=== PATIENT | female | born 1970 | race Caucasian/White ===

== ENCOUNTER 2021-04-12 14:39 | Outpatient (REF) | payer MEDICAID, SELFPAY ==
--- NOTE | ~2021-04-12 | MM_ITS ---
EXAMINATION: MM DIAGNOSTIC DIGITAL BREAST TOMOSYNTHESIS, BILATERAL US DIAGNOSTIC ULTRASOUND BREAST, RIGHT CLINICAL INFORMATION: Due for yearly exam. Follow-up probable bilateral benign punctate calcifications. Also recurrent superficial nodule/abscess right axilla noted at clinical exam, previous outside aspiration. No known family history breast cancer. The lifetime risk of breast cancer based on the Tyrer-Cuzick Model is 7%. COMPARISON: Mammography: 03/16/2020, 09/13/2019, 03/16/2019, 03/11/2019 (BI-RADS 0), 02/18/2018 (new baseline). TECHNIQUE: Digital breast tomosynthesis is performed in both the craniocaudal and mediolateral oblique views along with computer-aided detection (CAD). Synthesized 2D images are generated from the tomosynthesis. Additional bilateral magnification CC and bilateral magnification ML views are obtained. Ultrasound right breast is targeted to the area of palpable concern right axilla. Patient is able to point to area of concern at time of imaging. Grayscale imaging and color Doppler are performed without and with harmonics. FINDINGS: There are scattered areas of fibroglandular density (ACR BI-RADS breast composition Category b). Breast parenchymal pattern is similar to prior studies. There is no developing density or significant mass or architectural abnormality. No skin thickening or coarsening of the Damian's ligaments. The axilla are unremarkable. No lymphadenopathy. The calcifications for follow-up regional central and upper outer right breast and regional central left breast are stable from prior diagnostic studies. There are no increasing calcifications or interval pleomorphic types or ductal distribution. There are now considered to be benign. Ultrasound right breast targeted to the superficial palpable nodularity at axilla demonstrates a small hypoechoic intradermal lesion with irregular margins approximately 20 cm from nipple and measuring just under 4 mm. There is no subdermal extension and no associated internal or peripheral color flow. No edema tracking in soft tissue planes. No lymphadenopathy. Results are discussed with the patient at time of visit. The bilateral breast calcifications are now considered to be benign. The intradermal lesion right axilla shows no hyperemia. It is likely a sebaceous cyst. If persistent and/or increasing, it would be amenable to simple excision by surgeon. MM/MM tomosynthesis diagnostic BI IMPRESSION: 1. No mammographic evidence of malignancy. 2. Bilateral breast calcifications stable and now considered to be benign. 3. Palpable nodule right axilla corresponds to an intradermal lesion under 4 mm, likely sebaceous cyst. No hyperemia. ASSESSMENT: BI-RADS 2: Benign RECOMMENDATION: 1. The intradermal lesion right axilla may be managed based on the clinical impression. Consider surgical consult for simple excision if persistent or increasing. 2. Otherwise, routine annual screening mammography. This patient's information was entered into a reminder system with a target due date for their next mammogram.
== END 2021-04-12 14:40 | disposition home or self-care (01) ==
LOC: HO.MAMMO 14:39
PROVIDERS: Visit Provider Family Medicine
DX: R22.9 Localized swelling, mass and lump, unspecified (principal)
CPT/HCPCS: 76642; 77062; 77066

== ENCOUNTER → 2021-07-04 11:43 | Outpatient (BNVA) | payer MEDICAID, SELFPAY | PROVIDERS: PCP Family Medicine; Referring Provider Family Medicine; Visit Provider Surgery | DX: L72.0 Epidermal cyst (principal) | CPT/HCPCS: 99202 ==

== ENCOUNTER 2022-07-01 12:27 | Outpatient (REF) | payer MEDICAID, SELFPAY ==
--- NOTE | ~2022-07-01 | XR_ITS ---
EXAMINATION: BILATERAL KNEE SERIES CLINICAL INFORMATION: Pain COMPARISON: None TECHNIQUE: 3 views of each knee FINDINGS: Right knee: Bones joints and soft tissues are normal without effusion. Left knee: The bones joints and soft tissues are normal without effusion XR/XR knee RT 3V IMPRESSION: Normal x-ray series of the right knee and left knee
--- NOTE | ~2022-07-01 | XR_ITS ---
EXAMINATION: BILATERAL KNEE SERIES CLINICAL INFORMATION: Pain COMPARISON: None TECHNIQUE: 3 views of each knee FINDINGS: Right knee: Bones joints and soft tissues are normal without effusion. Left knee: The bones joints and soft tissues are normal without effusion XR/XR knee LT 3V IMPRESSION: Normal x-ray series of the right knee and left knee
== END 2022-07-01 12:28 | disposition home or self-care (01) ==
LOC: HO.XRAY 12:27
PROVIDERS: PCP Family Medicine; Visit Provider Family Medicine
DX: M25.561 Pain in right knee (principal); M25.562 Pain in left knee
CPT/HCPCS: 73562

== ENCOUNTER 2022-07-08 12:25 | Outpatient (REF) | payer MEDICAID, SELFPAY ==
--- NOTE | ~2022-07-08 | MM_ITS ---
EXAMINATION: MM SCREENING DIGITAL BREAST TOMOSYNTHESIS, BILATERAL CLINICAL INFORMATION: Screening. Asymptomatic. The lifetime risk of breast cancer based on the Tyrer-Cuzick Model is 8%. COMPARISON: Mammography: 04/12/2021, 03/16/2020, 09/13/2019 TECHNIQUE: Digital breast tomosynthesis is performed in both the craniocaudal and mediolateral oblique views along with computer-aided detection (CAD). Synthesized 2D images are generated from the tomosynthesis. FINDINGS: There are scattered areas of fibroglandular density (ACR BI-RADS breast composition Category b). Parenchymal pattern is similar to prior exams. There is no developing density or interval mass or architectural abnormality. There is a dermal lesion again seen overlying the mid medial right breast. Numerous punctate round calcifications are again present, greater in number on right, similar to prior diagnostic exam. The axilla are unremarkable. No significant changes. MM/MM tomosynthesis screening BI IMPRESSION: No mammographic evidence of malignancy. ASSESSMENT: BI-RADS 2: Benign RECOMMENDATION: Routine annual mammography screening. This patient's information was entered into a reminder system with a target due date for their next mammogram.
== END 2022-07-08 12:26 | disposition home or self-care (01) ==
LOC: HO.MAMMO 12:25
PROVIDERS: PCP Family Medicine; Visit Provider Family Medicine
DX: Z12.31 Encounter for screening mammogram for malignant neoplasm of breast (principal)
CPT/HCPCS: 77063; 77067

== ENCOUNTER 2022-08-19 11:32 | Outpatient (REF) | payer MEDICAID, SELFPAY ==
--- NOTE | ~2022-08-19 | US_ITS ---
EXAMINATION: US ABDOMEN COMPLETE CLINICAL INFORMATION: Fatty liver. COMPARISON: Ultrasound abdomen complete dated 03/30/2020 and 08/05/2018. TECHNIQUE: Real-time imaging of the abdominal viscera. FINDINGS: PANCREAS: Tail is obscured by the rest of the pancreas is normal. ABDOMINAL AORTA: The proximal, mid, and distal segments are normal in caliber. INFERIOR VENA CAVA: Partially visualized, and is unremarkable LIVER: The liver is normal in size. The liver contour is normal. Parenchymal echogenicity is normal. No focal hepatic lesion. There is no intrahepatic biliary duct dilatation seen. GALLBLADDER: Normal. The gallbladder is physiologically distended without evidence of stones, sludge, polyps, wall thickening or pericholecystic fluid. COMMON BILE DUCT: Normal in caliber measuring 0.2 cm in diameter. RIGHT KIDNEY: Normal. No hydronephrosis. No renal calculi or focal parenchymal lesions. The kidney measures 12.3 cm in maximum dimension. LEFT KIDNEY: Normal. No hydronephrosis. No renal calculi or focal parenchymal lesions. The kidney measures 12.3 cm in maximum dimension. SPLEEN: Normal. The spleen measures 11.5 cm in maximum dimension. FREE FLUID: None. US/US abdomen complete IMPRESSION: Normal study.
== END 2022-08-19 11:33 | disposition home or self-care (01) ==
LOC: HO.US 11:32
PROVIDERS: PCP Family Medicine; Visit Provider Family Medicine
DX: K76.0 Fatty (change of) liver, not elsewhere classified (principal)
CPT/HCPCS: 76700

== ENCOUNTER → 2022-08-22 14:47 | Outpatient (BNVA) | payer MEDICAID, SELFPAY | PROVIDERS: PCP Family Medicine; Visit Provider Nurse Practitioner | DX: Z01.818 Encounter for other preprocedural examination (principal); K21.9 Gastro-esophageal reflux disease without esophagitis; E66.09 Other obesity due to excess calories; Z68.35 Body mass index [BMI] 35.0-35.9, adult; Z83.71 Family history of colonic polyps | CPT/HCPCS: 99202 ==

== ENCOUNTER 2022-09-04 07:51 | Outpatient (REF) | payer MEDICAID, SELFPAY ==
--- NOTE | ~2022-09-04 | XR_ITS ---
EXAMINATION: XR KNEE AP STANDING CLINICAL INFORMATION: Pain COMPARISON: Bilateral knee x-rays 07/01/2022 TECHNIQUE: AP bilateral standing view of the knees was obtained. FINDINGS: There is mild narrowing of both the left and right medial joint space heights. Lateral joint spaces appear well-maintained. No prominent osteophytes. No gross radiopaque foreign body. XR/XR knee standing BI IMPRESSION: Minimal degenerative changes of the medial compartments of both knees.
== END 2022-09-04 07:52 | disposition home or self-care (01) ==
LOC: HO.HOSX 07:51
PROVIDERS: Visit Provider Physician Assistant
DX: M17.11 Unilateral primary osteoarthritis, right knee (principal)
CPT/HCPCS: 20610; 73565; 99202; 99212; J1040

== ENCOUNTER 2022-09-04 10:32 | Outpatient (REF) | payer MEDICAID, SELFPAY ==
[2022-09-04 10:57] LABS: MANUAL DIFF FLAG NO
[2022-09-04 11:15] LABS: Basophils Percent Auto 0.4 % (0-2); Eosinophils Absolute Auto 0.1 X10*3/uL (0.0-0.4); Hematocrit 38.5 % (37.0-47.0); Hemoglobin 12.8 g/dl (12.0-16.0); Imm Gran Abs Auto 0.02 X10*3/uL (0.00-0.03); Imm Gran Pct Auto 0.4 % (0.0-0.4); Lymphocytes Absolute Auto 1.9 X10*3/uL (1.2-4.9); Lymphocytes Percent Auto 34.6 % (20-40); Mean Corpuscular HGB Conc 33.2 g/dl (31.0-35.0); Mean Corpuscular Hemoglobin 30.8 pg (27.0-33.0); Mean Corpuscular Volume 92.8 fL (80.0-98.0); Mean Platelet Volume 10.1 fL (9.4-12.3); Monocytes Absolute Auto 0.4 X10*3/uL (0.1-1.2); Monocytes Percent Auto 7.5 % (2-11); Neutrophils Percent Auto 55.1 % (45-73); Platelet Count 259 X10*3/uL (160-400); Red Blood Count 4.15 X10*6/uL (4.20-5.50); Red Cell Distribution Width 13.1 % (11.0-16.0); White Blood Count 5.5 X10*3/uL (4.8-10.8)
[2022-09-04 12:03] LABS: Alanine Aminotransferase 49 U/L (0-31); Albumin Level 4.1 g/dL (3.5-5.0); Alkaline Phosphatase 91 U/L (39-117); Anion Gap 13 (12-20); Aspartate Amino Transferase 30 U/L (5-31); Bilirubin Total 0.4 mg/dL (0.0-1.0); Blood Urea Nitrogen 10 mg/dL (9-16); Calcium 9.1 mg/dL (8.4-10.2); Carbon Dioxide 23 mmol/L (22-29); Chloride 109 mmol/L (96-108); Estimated Glomerular Filt Rate > 60; Glucose Random 89 mg/dL (60-115); Potassium 4.5 mmol/L (3.3-5.1); Sodium 140 mmol/L (135-145); Total Protein 7.7 g/dL (6.5-8.0)
== END 2022-09-04 10:33 | disposition home or self-care (01) ==
LOC: HO.LAB 10:32
PROVIDERS: PCP Family Medicine; Visit Provider Nurse Practitioner
DX: Z01.818 Encounter for other preprocedural examination (principal)
CPT/HCPCS: 36415; 80053; 85025

== ENCOUNTER 2022-10-29 14:19 | Outpatient (REF) | payer MEDICAID, SELFPAY ==
--- NOTE | ~2022-10-29 | US_ITS ---
EXAMINATION: US PELVIS CLINICAL INFORMATION: Abnormal uterine and vaginal bleeding. LMP unknown. History of tubal ligation. COMPARISON: Pelvic ultrasound 03/27/2020. TECHNIQUE: Ultrasound of the pelvis is performed using both transabdominal and transvaginal transducers along with Doppler. Transvaginal imaging is performed due to inadequate visualization transabdominally. FINDINGS: The uterus is anteverted and anteflexed measuring 10 x 5.6 x 6 cm. There are multiple uterine lesions, described in detail below: 1. A 1.7 x 2.1 x 1.9 cm anterior upper myometrial lesion, previously 1.6 x 1.5 x 1.6 cm. 2. A 1.1 x 1.4 x 1.2 cm slightly more superior anterior upper myometrial lesion, previously 1.7 x 1.5 x 1.6 cm. 3. A 1.6 x 1.5 x 1.6 cm left mid myometrial lesion, previously 2.2 x 1.4 x 1.5 cm 4. A 1.1 x 1.1 x 1.1 cm left upper uterine myometrial lesion, new. The endometrium measures 1.3 cm without discrete focal abnormality. Nabothian cysts overlie the cervix. The right ovary measures 3.4 x 2.3 x 2.9 cm (12 mL) and the left ovary measures 3.9 x 1.8 x 1.9 cm (7 mL). There is preserved flow to both ovaries at the moment of this examination on color Doppler There are tubular like structures surrounding the ovaries in both adnexal areas, larger on the right side with some internal echogenic content. No significant amount of free fluid. US/US pelvic and transvaginal IMPRESSION: 1. Tubular-shaped structures surrounding the ovaries in both adnexa, larger on the right side where there are internal echogenic contents. These could represent dilatation of the fallopian tubes with purulent/hemorrhagic debris, however another type of adnexal or ovarian abnormalities cannot be entirely excluded, recommend clinical correlation and further correlation with an MR of the pelvis with and without IV contrast. 2. Multiple uterine lesions favored to represent fibroids.
== END 2022-10-29 14:20 | disposition home or self-care (01) ==
LOC: HO.US 14:19
PROVIDERS: PCP Family Medicine; Visit Provider Family Medicine
DX: N93.9 Abnormal uterine and vaginal bleeding, unspecified (principal)
CPT/HCPCS: 76830; 76856

== ENCOUNTER 2022-11-05 15:40 | Outpatient (REF) | payer MEDICAID, SELFPAY ==
--- NOTE | ~2022-11-05 | CT_ITS ---
EXAMINATION: CT ANGIOGRAM OF THE CHEST WITH AND WITHOUT CONTRAST (CT PULMONARY ANGIOGRAM FOR PE) CLINICAL INFORMATION: Reason for Exam SOB, r/o PE COMPARISON: None TECHNIQUE: Prior to contrast administration, noncontrast localization images were obtained. Subsequently, multidetector volumetric imaging was performed from the thoracic inlet to below the diaphragms following the administration of 65 mL Omnipaque 350 intravenous contrast. No contrast reaction reported Sagittal, coronal, and MIP oblique sagittal reformatted images were obtained on the CT workstation, uploaded to PACS, and reviewed. This CT examination was performed using dose optimization techniques as appropriate, variously including the following: *Automated exposure control *Adjustment of mA and/or kV according to patient size (this includes techniques or standardized protocols for targeted exams where dose is matched to indication/reason for exam; i.e. extremities or head) *Use of iterative reconstruction technique Total exam dose-length product 248 mGy-cm FINDINGS: QUALITY OF STUDY/CONTRAST BOLUS: Satisfactory. PULMONARY ARTERIES: No central or segmental pulmonary emboli. THORACIC AORTA: No aneurysm or dissection. LUNG: No focal consolidation, nodules or masses. PLEURA: No pleural effusion or pneumothorax. MEDIASTINUM: Normal heart size. No pericardial effusion. No hilar or mediastinal lymphadenopathy. No evidence of septal bowing or right heart strain. CORONARY ARTERY CALCIFICATION: None visualized on this study. CHEST WALL/AXILLA: No axillary or internal mammary lymphadenopathy. OSSEOUS STRUCTURES: No acute or suspicious osseous abnormality. UPPER ABDOMEN: Unremarkable. No reflux of contrast into the hepatic veins to suggest elevated right heart pressures. CT/CT angio chest PE protocol IMPRESSION: No pulmonary embolism VTE: negative
[2022-11-05] MEDS: iohexoL 350 MG/ML 100 ML INFUS..BTL IV (17:17)
== END 2022-11-05 15:41 | disposition home or self-care (01) ==
LOC: HO.CT 15:40
PROVIDERS: PCP Family Medicine; Visit Provider Family Medicine
DX: R06.02 Shortness of breath (principal)
CPT/HCPCS: 71275; Q9967

== ENCOUNTER 2022-11-12 11:05 | Outpatient (RCR) | payer MEDICAID, SELFPAY ==
[2022-11-12 11:15] VITALS: BP 119/55; PULSE 80
--- NOTE | 2022-11-12 15:12 | MHC.PT.EP ---
[facility] [place] Office [place] Office [place] Office [address] [phone] F: [phone] F: [phone] F: [phone] F: [phone] Physical Therapy Plan of Care Date of Evaluation: Date of Surgery: Diagnosis: R knee pain, osteoarthritis knee, patellofemoral osteoarthritis Assessment: Patient is a 52 y.o. macedonian speaking female who is referred to PT by Flor PARIKH with Dx of R knee osteoarthritis and patellofemoral arthritis. Patient impairments include pain, weakness, limited ROM. Patient current functional limitations are prolonged standing, prolonged walking, bend/squat, ascend/descend stairs one at a time with railings. Patient will benefit from skilled PT to address aforementioned impairments and functional limitations to meet established goals. Frequency and Duration: The patient will be seen 1-2x/week for 4 weeks Short Term Goals: 2 weeks Patient demonstrates consistency and independence with HEP to self manage symptoms. Residential Goals: 4 weeks Patient presents with increased R knee flexion 115 degrees to be able to squat to low surfaces. Patient presents with incraesed R knee flexion 5/5 to be able to ascend/descend 1 flight of stair reciprocally. Treatment Plan: Modalities to reduce pain, spasms and effusion. Manual therapy to restore motion and function. Therapeutic exercise to improve strength and flexibility. Neuromuscular re-education for posture and balance. Therapeutic activities to return to functional activities of daily living. Electronically signed by: J Luis Fuentes, PT, DPT Please sign and return to therapist. Thank you for your referral.
--- NOTE | 2022-12-16 16:26 | MHC.PT.DC ---
[facility] [place] Office [place] Office [place] Office [address] [facility] [phone] F: [phone] F: [phone] F: [phone] F: [phone] Physical Therapy Discharge Report Diagnosis: R knee pain, osteoarthritis knee, patellofemoral osteoarthritis Date of Surgery: Date of Evaluation: 11/12/22 Date of Discharge: 12/16/22 Treatments to Date: 1 Cancellations to Date: 0 No Shows to Date: 3 Discharge Status: Visit Non-compliance Discharge Summary: Patient did not show to her scheduled visits after the initial evaluation. Therefore she is discharged from PT at this time. Unable to determine effectiveness of PT on patient condition due to visit non-compliance. Electronically signed by: J Luis Fuentes, PT, DPT Please sign and return to therapist. Thank you for your referral.
== END 2022-12-16 16:27 | disposition home or self-care (01) ==
LOC: HO.PT 11:05
PROVIDERS: PCP Family Medicine; Visit Provider Physician Assistant
DX: M17.11 Unilateral primary osteoarthritis, right knee (principal)
CPT/HCPCS: 97110; 97161

== ENCOUNTER → 2022-12-06 14:04 | Outpatient (BNV) | payer MEDICAID, SELFPAY | PROVIDERS: PCP Family Medicine; Visit Provider Internal Medicine Medical Oncology | DX: N28.0 Ischemia and infarction of kidney (principal) | CPT/HCPCS: 99204; 99213 ==

== ENCOUNTER 2022-12-16 08:08 | Outpatient (REF) | payer MEDICAID, SELFPAY ==
--- NOTE | ~2022-12-16 | FL_ITS ---
PROCEDURE: FL BARIUM SWALLOW CLINICAL INFORMATION: Globus sensation. COMPARISON: None available. TECHNIQUE: Barium swallow examination is performed using fluoroscopic evaluation in addition to multiple fluoroscopic spot views. The patient is imaged both upright and prone and using both thick and thin sulfate along with effervescent granules. Fluoroscopy time: 1.1 minutes DAP: 17.391 Gy-cm2 Images: 53 FINDINGS: Following oral administration of thick barium and and barium-coated solid food there is normal propagation of bolus from the oral cavity through the pharynx into esophagus and stomach without any obstruction or narrowing. No constriction or extrinsic compression seen. There is reducible small hiatal hernia but no reflux seen. FL/FL barium swallow IMPRESSION: Reducible small hiatal hernia without any reflux. Rest of the barium swallow exam is unremarkable.
== END 2022-12-16 08:09 | disposition home or self-care (01) ==
LOC: HO.XRAY 08:08
PROVIDERS: PCP Family Medicine; Visit Provider Family Medicine
DX: R09.89 Other specified symptoms and signs involving the circulatory and respiratory systems (principal)
CPT/HCPCS: 74220

== ENCOUNTER 2023-03-03 13:00 | Emergency (ER) | payer MEDICAID, SELFPAY ==
--- NOTE | ~2023-03-03 | XR_ITS ---
EXAMINATION: XR KNEE, LEFT CLINICAL INFORMATION: Left knee pain after jumping COMPARISON: Left knee x-ray on 09/04/2022 TECHNIQUE: Four views of the left knee. FINDINGS: Bones and soft tissues are normal. Small joint effusion. Alignment is anatomic. Mild medial compartment joint space narrowing. No abnormal soft tissue calcification. XR/XR knee LT 4V IMPRESSION: Mild degenerative disease of the left knee.
[2023-03-03 13:11] VITALS: BP 104/48; PULSE 72; RESP 20; TEMP 36.7; O2SAT 98; BMI 34.3
--- NOTE | 2023-03-03 13:12 | ED.GENADULT ---
HPI - General Adult General Chief complaint: Extremity Injury, Lower Stated complaint: L knee inj Time Seen by Provider: 03/03/23 13:25 Source: patient Mode of arrival: ambulatory Limitations: no limitations History of Present Illness HPI narrative: Patient is a 52 year old assigned female at with a history of GERD presenting to the emergency department today with left knee pain. Patient states that she was jumping on a trampoline when she heard a loud pop of her left knee and now continues to have pain. Patient denies any head strike or loss of consciousness. Patient denies any dizziness, lightheadedness, abdominal pain, nausea, vomiting, fever, chills, blurry vision, double vision, loss of vision, chest pain, difficulty breathing, shortness of breath, back pain, night sweats, pain with urination, increased urinary frequency, increased urinary urgency, blood in her urine or stool, syncope or a near syncopal episode, bowel incontinence, bladder incontinence, bowel retention, bladder retention, or any other complaints at this time. Location: left and lower extremity Severity: mild Relieving factors: none Exacerbating factors: none Associated symptoms: denies other symptoms Treatments prior to arrival: none Related Data Home Medications Medication Instructions Recorded Confirmed omeprazole 20 mg capsule,delayed 20 mg PO DAILY 07/04/21 12/06/22 release acetaminophen 650 mg 650 mg PO Q8H PRN Pain 08/22/22 12/06/22 tablet,extended release albuterol sulfate 90 mcg/actuation 2 puff inhalation Q4H PRN 08/22/22 12/06/22 aerosol inhaler (ProAir HFA) Shortness Of Breath Or Wheezing baclofen 10 mg tablet 10 mg PO TID PRN muscle spasm 08/22/22 12/06/22 cetirizine 10 mg tablet 10 mg PO DAILY 08/22/22 12/06/22 cholecalciferol (vitamin D3) 50 50 mcg PO DAILY 08/22/22 12/06/22 mcg (2,000 unit) capsule (D3-2000) diclofenac sodium 1 % topical gel 2 g topical BID pain 08/22/22 12/06/22 fluticasone propionate 50 2 spray intranasal DAILY 08/22/22 12/06/22 mcg/actuation nasal spray,suspension ibuprofen 600 mg tablet 600 mg PO Q6H PRN fever 08/22/22 12/06/22 loratadine 10 mg tablet 10 mg PO DAILY 08/22/22 12/06/22 apixaban 5 mg tablet 5 mg PO BID 12/06/22 12/06/22 Previous Rx's Medication Instructions Recorded apixaban 5 mg tablet (Eliquis) 5 mg PO BID #180 tabs 12/06/22 Allergies Allergy/AdvReac Type Severity Reaction Status Date / Time No Known Allergies Allergy Verified 08/22/22 15:01 Review of Systems Constitutional: Constitutional: Reports no additional constitutional complaints, Denies chills, Denies fever(s) and Denies night sweats Eyes: Eyes: Reports no additional eye complaints, Denies blurry vision, Denies change in vision, Denies diplopia, Denies eye discharge, Denies loss of vision and Denies eye pain ENT: Denies dizziness Cardiovascular: Cardiovascular: Reports no additional cardiovascular complaints, Denies chest pain, Denies lightheadedness, Denies Loss of Consciousness and Denies dyspnea Respiratory: Respiratory: Reports no additional respiratory complaints and Denies dyspnea Gastrointestinal: Gastrointestinal: Reports no additional gastrointestinal complaints, Denies abdominal pain, Denies melena, Denies hematochezia, Denies change in bowel habits and Denies change in stool character Genitourinary: Genitourinary: Denies hematuria, Denies urinary frequency, Denies dysuria, Denies urinary incontinence, Denies urinary hesitancy and Denies urinary urgency Musculoskeletal: Musculoskeletal: Reports no additional musculoskeletal complaints, Denies numbness and Denies tingling Comments: left knee pain Neurologic: Denies dizziness, Denies loss of vision, Denies numbness and Denies tingling Psychiatric: Psychiatric: Reports no additional psychiatric complaints Endocrine: Endocrine: Reports no additional endocrine complaints Hematologic/Lymphatic: Hematologic/Lymphatic: Reports no additional hematologic/lymphatic complaints Allergic/Immunologic: Allergic/Immunologic: Reports no additional allergic/immunologic complaints PMFSH Past Medical History Attestation statement: The following information was validated with the patient. 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 Physical Exam ED Vital Signs: Vital Signs - 24 hr 03/03/23 13:11 Temperature 98.1 F Pulse Rate 72 Respiratory Rate 20 Blood Pressure 104/48 L Pulse Oximetry 98 Oxygen Delivery Method Room Air BMI result Body Mass Index 34.3 Const General: cooperative, no acute distress, alert and awake Nutritional Appearance: well nourished Orientation/consciousness: patient oriented x3 Limitations: no limitations HENMT Head: Yes normal to inspection and Yes atraumatic Ears: hearing grossly normal bilaterally and external ears normal General nose exam: Normal external nose present, no nasal discharge noted and no epistaxis Face and sinus: Yes normal facial exam, No abrasion and No laceration Mouth: Normal oral and palatal mucosa present, no drooling and no muffled voice Eyes General: appearance normal, both eyes and all related structures Periorbital: periorbital findings normal Eyelids: Yes eyelids normal Conjunctivae: conjunctivae normal Pupils: Equal, round and reactive pupils present EOM: EOMs intact bilaterally Neck Neck: Yes normal visual inspection, Yes full ROM and Yes no lymphadenopathy Chest Chest palpation & inspection: normal inspection of the chest Resp Effort & Inspection: normal respiratory effort and able to speak in complete sentences GI Inspection: Yes normal to inspection Neuro General: patient oriented x3 and moves all extremities Cranial nerves: Yes Equal, round and reactive pupils present Cognition (Neuro): normal cognition Motor exam (neuro): 5/5 motor strength present throughout Sensory Exam: Normal double simultaneous stimulation for sensation Coordination: [id number] test normal Extrem General: Yes normal to inspection, Yes full ROM and Yes capillary refill normal Psych Appearance: grossly normal Mental Status: mental status grossly normal Affect: normal affect Attitude: cooperative Thought process: Normal thought process present Thought content: Normal thought content present Insight: Good insight present (Psych) Course Course Course Narrative: RmE: 52 yold female presents to the ED for left knee pain after jumping on trampoloene. patient heard pop in left knee yesterday while jumping in tramploene. patient denies any head trauma or falling o the ground. left knee xray ordered Procedures Orthopedic Splinting/Casting Injury #1: Side: left Lower Extremity Injury Location: knee Lower Extremity Immobilizer: knee immobilizer Other Orthopedic Equipment: crutches Medical Decision Making Medical Decision Making MDM Narrative: Patient is a 52 year old assigned female at with a history of GERD presenting to the emergency department today with left knee pain. Patient's physical exam was unremarkable. Patient's left knee x-ray showed no acute process. I explained my physical exam findings as well as all test results to the patient. I answered all questions asked by the patient. Patient's left knee was placed in an immobilizer and given crutches with crutch instructions. Patient's PMS was intact prior to and after immobilizer placement. I stressed the importance of the patient taking her medication as prescribed. I stressed the importance of the patient following up with her primary care provider and an orthopedic provider. I stressed the importance of the patient returning to the emergency department immediately if her symptoms were to worsen or if she were to develop any dizziness, shortness of breath, difficulty breathing, chest pain, blurry vision, loss of vision, nausea, vomiting, abdominal pain, fever, chills, back pain, or any other complaints. Patient verbalized agreement and understanding with this treatment plan and discharge. Differential Diagnosis Differential Diagnoses: The differential diagnosis associated with the presentation includes knee sprain, knee strain Independent Interpretation I performed an independent interpretation of an: Plain X-Ray Interpretation: My interpretation is in agreement with the radiologist's impression of this imaging study. EXAMINATION: XR KNEE, LEFT CLINICAL INFORMATION: Left knee pain after jumping? COMPARISON: Left knee x-ray on 09/04/2022? TECHNIQUE: Four views of the left knee. FINDINGS: Bones and soft tissues are normal. Small joint effusion. Alignment is anatomic. Mild medial compartment joint space narrowing. No abnormal soft tissue calcification.? XR/XR knee LT 4V IMPRESSION: Mild degenerative disease of the left knee. Dictated By: Shoshana Marquis MD Signed By: Electronically signed by Shoshana Marquis MD 03/03/23 [id number] Discharge Plan Discharge Clinical Impression: Acute knee pain, Knee sprain Patient Disposition: Home, Self-Care Instructions: Crutch Instructions (ED), Knee Pain (ED) Additional Instructions: Follow up with your primary care provider and an orthopedic provider. Return to the emergency department immediately if your symptoms worsen or if you develop any dizziness, shortness of breath, difficulty breathing, chest pain, blurry vision, loss of vision, nausea, vomiting, abdominal pain, fever, chills, back pain, or any other complaints. Josefina un seguimiento con rebollar proveedor de atenci?n primaria y un proveedor ortop?dico. Regrese al departamento de emergencias de inmediato si isaura s?ntomas empeoran o si presenta mareos, falta de aire, dificultad para respirar, dolor de pecho, visi?n borrosa, p?rdida de la visi?n, n?useas, v?mitos, dolor abdominal, fiebre, escalofr?os, dolor de espalda o cualquier otras quejas. Prescriptions: No Action apixaban 5 mg Tablet 5 mg PO BID Eliquis 5 mg Tablet 5 mg PO BID Qty: 180 3RF omeprazole 20 mg capsule,delayed release(DR/EC) 20 mg PO DAILY cetirizine 10 mg tablet 10 mg PO DAILY cholecalciferol (vitamin D3) [D3-2000] 50 mcg (2,000 unit) capsule 50 mcg PO DAILY diclofenac sodium 1 % gel 2 g topical BID loratadine 10 mg tablet 10 mg PO DAILY fluticasone propionate 50 mcg/actuation spray,suspension 2 spray intranasal DAILY albuterol sulfate [ProAir HFA] 90 mcg/actuation HFA aerosol inhaler 2 puff inhalation Q4H PRN (Reason: Shortness Of Breath Or Wheezing) ibuprofen 600 mg tablet 600 mg PO Q6H PRN (Reason: fever) baclofen 10 mg tablet 10 mg PO TID PRN (Reason: muscle spasm) acetaminophen 650 mg tablet extended release 650 mg PO Q8H PRN (Reason: Pain) Referrals: [facility] [Provider Group] (Call to establish and follow up with an orthopedic provider. Llame para establecer y hacer un seguimiento con un proveedor ortop?dico.) Katlyn Garcia DO [Primary Care Provider] - Stand Alone Forms: Work/School Release Interventions: ED Discharge Assessment Last Done: 03/03/23 14:45 Discharge Date/Time: 03/03/23 14:45 Print Language: Haitian
--- NOTE | 2023-03-03 14:43 | PC.NURSE ---
immobilizer applied to left knee, education on crutches provided via spanish translator.
== END 2023-03-03 14:45 | disposition home or self-care (01) ==
PROVIDERS: Emergency Provider Emergency Medicine; PCP Family Medicine
DX: S83.92XA Sprain of unspecified site of left knee, initial encounter (principal); X58.XXXA Exposure to other specified factors, initial encounter; Y93.9 Activity, unspecified; Y92.9 Unspecified place or not applicable; Y99.9 Unspecified external cause status
CPT/HCPCS: 73564; 99283

== ENCOUNTER → 2023-03-26 09:24 | Outpatient (BNVA) | payer MEDICAID, SELFPAY | PROVIDERS: PCP Family Medicine; Referring Provider Family Medicine; Visit Provider Internal Medicine Cardiovascular Disease | DX: N28.0 Ischemia and infarction of kidney (principal) | CPT/HCPCS: 93005; 99202 ==

== ENCOUNTER → 2023-04-10 09:48 | Outpatient (REF) | payer MEDICAID, SELFPAY ==
--- NOTE | 2023-04-10 09:59 | HM_ITS ---
Cardiac event monitor Indication: Cardiac arrhythmia Technique: Patient was hooked up to cardiac event monitor on 04/12/2023 for total period of 30 days. With time was only 14.5 days with compliance rate of 52%. Findings: Baseline was normal sinus rhythm with heart rate in normal range 89% of time. No significant pauses noted. Occasional isolated PVCs noted with total burden of 1.5%. No other tachyarrhythmias were noted. Maximum heart rate 140 beats per minute in sinus tachycardia in the lowest heart rate of 73 beats per minute Patient activated the symptom button 16 times without correlating symptoms offered, correlating with sinus rhythm or sinus tachycardia. Conclusion: 1. Baseline was normal sinus rhythm with no pauses 2. Occasional isolated PVCs noted 3. Patient reported events correlated with sinus rhythm or sinus tachycardia. [facility]
== END ==
LOC: HO.CARD 09:48
PROVIDERS: Visit Provider Internal Medicine Cardiovascular Disease
DX: N28.0 Ischemia and infarction of kidney (principal); M23.92 Unspecified internal derangement of left knee
CPT/HCPCS: 36415; 80053; 83880; 84439; 84443; 85025; 93270; 99212

== ENCOUNTER → 2023-04-10 09:59 | Outpatient (BNV) | payer MEDICAID, SELFPAY | PROVIDERS: Visit Provider Internal Medicine Cardiovascular Disease | DX: I49.3 Ventricular premature depolarization (principal) | CPT/HCPCS: 93272 ==

== ENCOUNTER 2023-04-23 11:15 | Outpatient (REF) | payer MEDICAID, SELFPAY ==
[2023-04-23 11:48] LABS: MANUAL DIFF FLAG NO
[2023-04-23 12:09] LABS: Basophils Percent Auto 0.5 % (0-2); Eosinophils Absolute Auto 0.1 X10*3/uL (0.0-0.4); Eosinophils Percent Auto 2.4 % (0-4); Hematocrit 35.6 % (37.0-47.0); Hemoglobin 11.2 g/dl (12.0-16.0); Imm Gran Abs Auto 0.01 X10*3/uL (0.00-0.03); Imm Gran Pct Auto 0.2 % (0.0-0.4); Lymphocytes Absolute Auto 2.1 X10*3/uL (1.2-4.9); Lymphocytes Percent Auto 34.6 % (20-40); Mean Corpuscular HGB Conc 31.5 g/dl (31.0-35.0); Mean Corpuscular Hemoglobin 26.7 pg (27.0-33.0); Mean Platelet Volume 10.5 fL (9.4-12.3); Monocytes Absolute Auto 0.4 X10*3/uL (0.1-1.2); Monocytes Percent Auto 6.9 % (2-11); Neutrophils Absolute Auto 3.3 x10*3/uL (2.0-8.3); Neutrophils Percent Auto 55.4 % (45-73); Platelet Count 266 X10*3/uL (160-400); Red Blood Count 4.19 X10*6/uL (4.20-5.50); Red Cell Distribution Width 14.8 % (11.0-16.0)
[2023-04-23 15:33] LABS: Alanine Aminotransferase 21 U/L (0-31); Albumin Level 3.6 g/dL (3.5-5.0); Alkaline Phosphatase 73 U/L (39-117); Aspartate Amino Transferase 18 U/L (5-31); Bilirubin Total 0.4 mg/dL (0.0-1.0); Blood Urea Nitrogen 11 mg/dL (9-16); Calcium 8.9 mg/dL (8.4-10.2); Chloride 108 mmol/L (96-108); Estimated Glomerular Filt Rate > 60; Glucose Random 110 mg/dL (60-115); Potassium 3.6 mmol/L (3.3-5.1); Sodium 138 mmol/L (135-145); Total Protein 7.3 g/dL (6.5-8.0)
[2023-04-23 21:10] LABS: Carbon Dioxide 19 mmol/L (22-29)
== END 2023-04-23 11:16 | disposition home or self-care (01) ==
LOC: HO.LAB 11:15
PROVIDERS: Visit Provider Internal Medicine Medical Oncology
DX: N28.0 Ischemia and infarction of kidney (principal)
CPT/HCPCS: 36415; 80053; 85025

== ENCOUNTER 2023-06-10 10:03 | Outpatient (REF) | payer MEDICAID, SELFPAY ==
--- NOTE | ~2023-06-10 | MR_ITS ---
EXAMINATION: MR KNEE WITHOUT CONTRAST, LEFT CLINICAL INFORMATION: Left knee pain and instability. Internal derangement. COMPARISON: Left knee radiographs dated 03/03/2023. TECHNIQUE: MRI of the knee without contrast was performed using routine sequences on a high-field scanner. FINDINGS: MENISCI: Medial Meniscus: Fraying along the periphery of the posterior body and posterior horn tibial articular surface. Mild adjacent soft tissue edema posteriorly which could indicate a nondisplaced meniscocapsular injury. Lateral Meniscus: Intact LIGAMENTS: Cruciate: Increased T2 signal within the anterior cruciate ligament which could indicate early mucoid degeneration versus a grade 1 sprain. Intact posterior cruciate ligament. Collateral: Edema adjacent to the medial collateral ligament which may be related to the meniscal tear or indicate a grade 1 sprain. Intact fibular collateral ligament. EXTENSOR MECHANISM: Intact ARTICULAR CARTILAGE/BONE: Patellofemoral Compartment: Full-thickness articular cartilage fissuring at the lateral patellar facet with underlying subchondral cystic change. Tiny marginal osteophytes. Medial Compartment: Intact articular cartilage. Lateral Compartment: Intact articular cartilage. JOINT FLUID AND BURSAE: Small joint effusion and trace Santos's cyst. MR/MR knee LT wo con IMPRESSION: 1. Fraying along the periphery of the medial meniscus posterior body and posterior horn tibial articular surface. Adjacent soft tissue edema posteriorly which could indicate a nondisplaced meniscocapsular injury. 2, Increased T2 signal within the anterior cruciate ligament which could indicate early mucoid degeneration versus a grade 1 sprain. 3. Edema adjacent to the medial collateral ligament which may be related to the meniscal tear or indicate a grade 1 sprain. 4. Mild patellofemoral arthrosis. Small joint effusion and trace Santos's cyst.
== END 2023-06-10 10:04 | disposition home or self-care (01) ==
LOC: HO.MRI 10:03
PROVIDERS: PCP Family Medicine; Visit Provider Physician Assistant
DX: M23.92 Unspecified internal derangement of left knee (principal)
CPT/HCPCS: 73721

== ENCOUNTER 2023-06-12 09:49 | Outpatient (REF) | payer MEDICAID, SELFPAY | END 2023-06-12 09:50 | disposition home or self-care (01) | LOC: HO.LAB 09:49 | PROVIDERS: PCP Family Medicine; Visit Provider Internal Medicine Medical Oncology | DX: Z13.89 Encounter for screening for other disorder (principal) ==

== ENCOUNTER 2023-06-23 18:07 | Outpatient (REF) | payer MEDICAID, SELFPAY ==
[2023-06-24 09:45] LABS: CT PCR NOT DETECTED (Not Detect.); NG PCR NOT DETECTED (Not Detect.)
[2023-06-24 10:23] LABS: BV Int Neg Control Negative (Negative); BV Int Pos Control Positive (Positive)
== END 2023-06-23 18:08 | disposition home or self-care (01) ==
LOC: HO.HHCLNP 18:07
PROVIDERS: Visit Provider Family Medicine
DX: Z11.3 Encounter for screening for infections with a predominantly sexual mode of transmission (principal); N89.8 Other specified noninflammatory disorders of vagina
CPT/HCPCS: 0353U; 87480; 87510; 87660

== ENCOUNTER 2023-06-30 12:53 | Outpatient (AMB) | payer MEDICAID, SELFPAY ==
[2023-06-30 12:56] VITALS: BMI 34.3
--- NOTE | 2023-06-30 12:56 | MHC.OFFVIS ---
Intake Vital Signs 06/30/23 12:56 Height 5 ft 4 in Weight 200 lb BMI 34.3 Intake Visit Reasons: ov- MRI Knee LT review./ discuss surgery Intake Note: Jodi is a 52 year old female who presents today for an MRI review of her left knee. Allergies No Known Allergies Allergy (Verified 06/30/23 12:57) HPI ov- MRI Knee LT review./ discuss surgery HPI Details Jodi is a 52 year old woman who presents for an MRI review of her left knee pain. [place] patient. She complains of pain primarily in the posterior aspect of her knee. Her pain began after jumping on a trampoline ~4 months ago. She has pain with daily activity, worse with using stairs, and her knee occasionally gives way on her. She was fitted for a knee brace and sent for PT at her last appointment. 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 Review of Systems Const All systems reviewed & are unremarkable except as noted in HPI and below Physical Exam Vital Signs: BMI result Body Mass Index 34.3 Const General: no acute distress, alert and awake Orientation/consciousness: patient oriented x3 HEENT Head: Yes normocephalic and Yes atraumatic Eyes EOM: EOMs intact bilaterally Resp Effort & Inspection: normal respiratory effort and able to speak in complete sentences Cardio Jugular venous distension: no JVD Skin General skin exam: turgor normal Rashes: no rashes Neuro General: patient oriented x3 Extrem Other: Minimal knee pain with palpation walking comfortably Psych Appearance: grossly normal Affect: normal affect Attitude: cooperative Results Reviewed Results Reviewed: I personally reviewed relevant MR images 1. Fraying along the periphery of the medial meniscus posterior body and posterior horn tibial articular surface. Adjacent soft tissue edema posteriorly which could indicate a nondisplaced meniscocapsular injury. 2, Increased T2 signal within the anterior cruciate ligament which could indicate early mucoid degeneration versus a grade 1 sprain. 3. Edema adjacent to the medial collateral ligament which may be related to the meniscal tear or indicate a grade 1 sprain. 4. Mild patellofemoral arthrosis. Small joint effusion and trace Santos's cyst. Assessment & Plan Assessment & Plan (1) Knee effusion, right: Code(s): M25.461 - Effusion, right knee (2) Arthritis of right knee: Code(s): M17.11 - Unilateral primary osteoarthritis, right knee Plan This is a 52 year old woman with left knee bony edema and possible small meniscus tear who is improving without intervention., DOI: 03/2023. I reviewed her MRI with her and she is doing well without the need for additional intervention. If she stops improving she will contact me. Orders: Orders PT Evaluation and Treatment 06/30/23 M17.11 - Unilateral primary osteoarthritis, right knee, M25.461 - Effusion, right knee Coding Level of Care Code Est Pt Level 4 (45465) Diagnoses Knee effusion, right M25.461 Arthritis of right knee M17.11
== END 2023-06-30 13:27 | disposition home or self-care (01) ==
PROVIDERS: PCP Family Medicine; Visit Provider Orthopaedic Surgery
DX: M25.461 Effusion, right knee (principal); M17.11 Unilateral primary osteoarthritis, right knee
CPT/HCPCS: 99213

== ENCOUNTER → 2023-06-30 12:53 | Outpatient (BNVA) | payer MEDICAID, SELFPAY | PROVIDERS: PCP Family Medicine; Visit Provider Orthopaedic Surgery | DX: M25.461 Effusion, right knee (principal); M17.11 Unilateral primary osteoarthritis, right knee | CPT/HCPCS: 99212 ==

== ENCOUNTER 2023-07-08 08:40 | Outpatient (REF) | payer MEDICAID, SELFPAY ==
[2023-07-08 11:39] LABS: MANUAL DIFF FLAG NO
[2023-07-08 11:46] LABS: Basophils Percent Auto 0.5 % (0-2); Eosinophils Absolute Auto 0.1 X10*3/uL (0.0-0.4); Eosinophils Percent Auto 1.2 % (0-4); Hematocrit 35.5 % (37.0-47.0); Hemoglobin 10.7 g/dl (12.0-16.0); Imm Gran Abs Auto 0.02 X10*3/uL (0.00-0.03); Imm Gran Pct Auto 0.3 % (0.0-0.4); Lymphocytes Absolute Auto 1.7 X10*3/uL (1.2-4.9); Lymphocytes Percent Auto 26.4 % (20-40); Mean Corpuscular HGB Conc 30.1 g/dl (31.0-35.0); Mean Corpuscular Hemoglobin 25.4 pg (27.0-33.0); Mean Corpuscular Volume 84.1 fL (80.0-98.0); Mean Platelet Volume 11.2 fL (9.4-12.3); Monocytes Absolute Auto 0.4 X10*3/uL (0.1-1.2); Monocytes Percent Auto 6.7 % (2-11); Neutrophils Absolute Auto 4.2 x10*3/uL (2.0-8.3); Neutrophils Percent Auto 64.9 % (45-73); Platelet Count 253 X10*3/uL (160-400); Red Blood Count 4.22 X10*6/uL (4.20-5.50); White Blood Count 6.5 X10*3/uL (4.8-10.8)
[2023-07-08 11:51] LABS: Estimated Average Glucose 91 mg/dL; Hemoglobin A1C 69.7026 umol/L; Hemoglobin A1c % 4.8 % (<6.0)
[2023-07-08 12:38] LABS: Syphilis Screen Nonreactive (Nonreactive)
[2023-07-08 12:40] LABS: HBsAGNum1 0.33 S/CO (0.00-0.99); HIV AB/AG Nonreactive (Nonreactive); HIV Num 1 0.05 S/CO (0.00-0.99); Hepatitis B Surface Antigen Negative (Negative); ~HepC Num1 0.11 S/CO (0.00-0.79); ~Hepatitis C Antibody Nonreactive (Nonreactive)
[2023-07-08 12:41] LABS: Alanine Aminotransferase 23 U/L (0-31); Albumin Level 3.7 g/dL (3.5-5.0); Alkaline Phosphatase 71 U/L (39-117); Anion Gap 10 (12-20); Aspartate Amino Transferase 21 U/L (5-31); Bilirubin Direct 0.1 mg/dL (0.0-0.5); Bilirubin Total 0.4 mg/dL (0.0-1.0); Blood Urea Nitrogen 9 mg/dL (9-16); Calcium 8.8 mg/dL (8.4-10.2); Carbon Dioxide 24 mmol/L (22-29); Chloride 106 mmol/L (96-108); Cholesterol 185 mg/dL (<200); Estimated Glomerular Filt Rate > 60; Glucose Random 81 mg/dL (60-115); HDL Cholesterol 43 mg/dL (>40); Iron 43 mcg/dL (30-160); LDL Cholesterol Calculated 81 mg/dL (<100); Percent Iron Saturation 12 % (15-50); Sodium 136 mmol/L (135-145); Total Iron Binding Capacity 347 mcg/dL (228-428); Total Protein 7.5 g/dL (6.5-8.0); Triglycerides 307 mg/dL (<150); Unsaturated Iron Binding 304 ug/dL
[2023-07-08 12:48] LABS: Ferritin 8 ng/mL (10-250); Free T4 (Free Thyroxine) 0.86 ng/dL (0.71-1.85); Thyroid Stimulating Hormone 1.88 uIU/mL (0.32-4.0); Vitamin D 25-OH Total 39.5 ng/mL (>30)
[2023-07-08 13:17] LABS: Folate 14.5 ng/mL (> or = 4.0); Vitamin B12 370 pg/mL (200-900)
[2023-07-10 12:48] LABS: Alpha Fetoprotein 3.1 ng/mL
[2023-07-10 17:54] LABS: Hepatitis B Viral DNA Qn - cp NOT DETECTED Log IU/mL (NOT DETECTED); Hepatitis B Viral DNA Qn-IU/mL NOT DETECTED (NOT DETECTED)
== END 2023-07-08 08:41 | disposition home or self-care (01) ==
LOC: HO.HHCL 08:40
PROVIDERS: Visit Provider Family Medicine
DX: E55.9 Vitamin D deficiency, unspecified (principal); R00.2 Palpitations; K59.00 Constipation, unspecified
CPT/HCPCS: 36415; 80048; 80061; 80076; 82105; 82306; 82607; 82728; 82746; 83036; 83540; 84439; 84443; 85025; 86780; 86803; 87340; 87389; 87517

== ENCOUNTER 2023-07-10 13:48 | Outpatient (REF) | payer MEDICAID, SELFPAY ==
--- NOTE | ~2023-07-10 | US_ITS ---
EXAMINATION: US PELVIS CLINICAL INFORMATION: Abnormal uterine bleeding. LMP unknown. COMPARISON: Pelvic ultrasound 10/29/2022. TECHNIQUE: Ultrasound of the pelvis is performed using both transabdominal and transvaginal transducers along with Doppler. Transvaginal imaging is performed due to inadequate visualization transabdominally. FINDINGS: The uterus is anteverted measuring 10 x 5.6 x 6 cm. Of the previously described uterine lesions, only 2 are confidentially identified in this examination specifically a 1.6 x 1.1 x 1.6 cm anterior upper subserosal lesion (previously 1.6 x 1.5 x 1.6 cm) and a 1.1 x 1.2 x 1.3 cm left mid to inferior intramural lesion (previously 1.7 x 2.1 x 1.9 cm). Again noted abnormal endometrial thickening measuring up to 1.4 cm, previously 1.3 cm with scattered cystic observations and heterogeneous content. The right ovary measures 3.3 x 2.3 x 2.3 cm, 9 mL. The left ovary measures 5.5 x 2.9 x 4.6 m, 38 mL. Differences in size are likely explain by the presence of a 4.3 x 2.8 x 3.9 cm simple appearing cyst in the left ovary that do not demonstrate associated septation or vascular nodules. Flow is preserved to both ovaries at the moment of this examination. Redemonstration of abnormal tubular anechoic observations in the adnexal regions measuring approximately up to 7.4 cm in length on the right and 6.3 cm in length on the left, most suggestive of persistent hydrosalpinx. No significant amount of free fluid. US/US pelvic and transvaginal IMPRESSION: 1. Again noted is abnormal endometrial thickening with scattered cystic observations and heterogeneous content. Recommend correlation with direct visualization and tissue sampling. Endometrial neoplasia is not excluded. 2. Redemonstration of bilateral hydrosalpinx. 3. There is a 4.3 cm simple appearing cyst in the left ovary. The LMP and menopausal status of the patient is unknown. A follow-up pelvic ultrasound in 1 year is recommended for reevaluation. 4. Slightly decreased size of uterine lesions that are statistically in favor to represent fibroids. The report will be called to the ordering clinician by a [facility]house Assistant.
== END 2023-07-10 13:49 | disposition home or self-care (01) ==
LOC: HO.US 13:48
PROVIDERS: PCP Family Medicine; Visit Provider Family Medicine
DX: N93.9 Abnormal uterine and vaginal bleeding, unspecified (principal)
CPT/HCPCS: 76830; 76856

== ENCOUNTER 2023-07-27 14:44 | Emergency (ER) | payer MEDICAID, SELFPAY ==
--- NOTE | 2023-07-27 14:53 | ED_ITS ---
HPI - General Adult General Chief complaint: Urogenital-Female Stated complaint: Burning when urinating Time Seen by Provider: 07/27/23 16:48 Source: patient, RN notes reviewed and old records reviewed Mode of arrival: ambulatory History of Present Illness HPI narrative: 52-year-old female with a past medical history of asthma, GERD, presenting to the ED complaining of dysuria, urinary frequency/hesitancy and suprapubic abdominal pain x4 days. Denies hematuria, flank pain, nausea/vomiting, diarrhea, vaginal bleeding/discharge Onset (ago): day(s) Related Data Home Medications Medication Instructions Recorded Confirmed omeprazole 20 mg capsule,delayed 20 mg PO DAILY 07/04/21 06/12/23 release acetaminophen 650 mg 650 mg PO Q8H PRN Pain 08/22/22 06/12/23 tablet,extended release albuterol sulfate 90 mcg/actuation 2 puff inhalation Q4H PRN 08/22/22 06/12/23 aerosol inhaler (ProAir HFA) Shortness Of Breath Or Wheezing baclofen 10 mg tablet 10 mg PO TID PRN muscle spasm 08/22/22 06/12/23 cetirizine 10 mg tablet 10 mg PO DAILY 08/22/22 06/12/23 cholecalciferol (vitamin D3) 50 50 mcg PO DAILY 08/22/22 06/12/23 mcg (2,000 unit) capsule (D3-2000) diclofenac sodium 1 % topical gel 2 g topical BID pain 08/22/22 06/12/23 fluticasone propionate 50 2 spray intranasal DAILY 08/22/22 06/12/23 mcg/actuation nasal spray,suspension ibuprofen 600 mg tablet 600 mg PO Q6H PRN fever 08/22/22 06/12/23 loratadine 10 mg tablet 10 mg PO DAILY 08/22/22 06/12/23 Previous Rx's Medication Instructions Recorded apixaban 5 mg tablet (Eliquis) 5 mg PO BID #180 tabs 03/11/23 nitrofurantoin 100 mg PO Q12H 7 days #14 caps 07/27/23 monohydrate/macrocrystals 100 mg capsule (Macrobid) phenazopyridine 200 mg tablet 200 mg PO TID PRN pain 6 doses #6 07/27/23 (Pyridium) tabs Allergies Allergy/AdvReac Type Severity Reaction Status Date / Time No Known Allergies Allergy Verified 06/30/23 12:57 Review of Systems 2 Review of Systems: Constitutional: No Fever, No Chills ENT/Mouth: No Ear Pain, No Nasal Congestion, No sore throat, No Rhinorrhea, No Swallowing Difficulty Cardiovascular: No Chest Pain, No SOB Respiratory: No Cough, No Sputum Gastrointestinal: No Nausea, No Vomiting, No Diarrhea, No Constipation, + Abdominal pain Genitourinary: + Dysuria, + Urinary Frequency, No Hematuria, No Urinary Incontinence/retention, + Urgency, No Flank Pain Musculoskeletal: No joint pain, No Myalgias, No Joint Swelling Skin: No Skin Lesions, No rash Neuro: No Weakness Yes all other systems are reviewed and are negative Constitutional: Constitutional: Reports as per [facility] Past Medical History Attestation statement: The following information was validated with the patient. Source: old records reviewed Medical History Asthma Epidermal cyst GERD (gastroesophageal reflux disease) Surgical History History of tubal ligation History of tonsillectomy Family History Family History Father Cancer Mother Colon polyps Sister Colon polyps Social History Social History Household Members: Spouse Alcohol intake: current Alcohol intake frequency: holidays/special occasions only Patient Tobacco Use Status: Never used Tobacco Smoked in Last 30 Days: No Use of substances other than those prescribed or required for medical reasons: No Advance Directives: No Advance Directives Information Provided: No service: No Current occupational status: employed 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 Physical Exam ED Vital Signs: Vital Signs - 24 hr 07/27/23 14:54 07/27/23 17:29 Temperature 97.7 F 98 F Pulse Rate 67 68 Respiratory Rate 18 18 Blood Pressure 129/64 115/68 Pulse Oximetry 99 98 Oxygen Delivery Method Room Air Room Air BMI result Body Mass Index 35.3 Const General: cooperative, healthy appearing and no acute distress Orientation/consciousness: patient oriented x3 Limitations: no limitations HENMT Head: Yes normal to inspection and Yes atraumatic Ears: hearing grossly normal bilaterally General nose exam: Normal external nose present Face and sinus: Yes normal facial exam Eyes General: appearance normal, both eyes and all related structures EOM: EOMs intact bilaterally Neck Neck: Yes normal visual inspection and Yes no meningeal signs Resp Effort & Inspection: normal respiratory effort and no respiratory distress Cardio Rate: regular rate GI Inspection: Yes normal to inspection Palpation (GI): Soft to palpation, Tenderness to palpation present (GI) suprapubicly; with no rebound tenderness, no guarding and not rigid General: Yes no CVA tenderness Back/Spine/Pelvis Back: no CVA tenderness Skin Rashes: no rashes Wounds: no wounds Neuro General: patient oriented x3, tone normal and no meningeal signs Cranial nerves: Yes CN's II-XII intact bilaterally Gait exam (Neuro): Normal gait present Extrem General: Yes normal to inspection Course Course Course Narrative: This is a rapid medical exam: Additional HPI, ROS, PE not included below will be deferred to primary provider. Patient is a 52-year-old Tongan-speaking female presenting to the emergency department with complaint of dysuria for the past 4 days. Also complains of periumbilical abdominal pain. Patient denies nausea, vomiting, diarrhea, fever, chills. States pain is 6/10. Reports frequent UTIs. Denies any back or flank pain. Plan: UA, labs -1710--no leukocytosis. H&H at patient's baseline. Labs otherwise reassuring. HCG negative -UA with wbc's and leuk esterase. > patient admits she has follow-up with OBGYN on 07/30. Recommended close follow-up with OBGYN as well as her PCP Results discussed with patient including worrisome signs and symptoms and strict return precautions, and when to return to the emergency department. They verbalized understanding and feel safe for discharge at this time. Medical Decision Making Medical Decision Making MDM Narrative: 52-year-old female with a past medical history of asthma, GERD, presenting to the ED complaining of dysuria, urinary frequency/hesitancy and suprapubic abdominal pain x4 days. On exam vital signs stable, NAD, nontoxic appearing, abdomen soft with mild suprapubic tenderness, no CVAT. Concern for UTI. Low suspicion for pyelo, renal stone, ovarian torsion/cyst Plan: Labs and UA ordered in triage Please refer to course for remaining clinical decision making, interpretation of labs/imaging results, and discussions with consultants and/or family members. Differential Diagnosis Differential Diagnoses: The differential diagnosis associated with the presentation includes As above Admission/Observation Consideration of admission/observation: Escalation of care including admission/observation considered Lab Data MDM Lab Attestation statement: I reviewed the patient's lab results. 07/27/23 15:12 07/27/23 15:12 Labs: Lab Results 07/27/23 Range/Units 15:12 WBC 7.1 (4.8-10.8) X10*3/uL RBC 4.18 L (4.20-5.50) X10*6/uL Hgb 10.6 L (12.0-16.0) g/dl Hct 34.7 L (37.0-47.0) % MCV 83.0 (80.0-98.0) fL MCH 25.4 L (27.0-33.0) pg MCHC 30.5 L (31.0-35.0) g/dl RDW 15.2 (11.0-16.0) % Plt Count 256 (160-400) X10*3/uL MPV 10.2 (9.4-12.3) fL Immature Gran % (Auto) 0.3 (0.0-0.4) % Neut % (Auto) 50.3 (45-73) % Lymph % (Auto) 38.6 (20-40) % [place] % (Auto) 8.0 (2-11) % Eos % (Auto) 2.2 (0-4) % Baso % (Auto) 0.6 (0-2) % Lymph # (Auto) 2.8 (1.2-4.9) X10*3/uL [place] # (Auto) 0.6 (0.1-1.2) X10*3/uL Eos # (Auto) 0.2 (0.0-0.4) X10*3/uL Baso # (Auto) 0.0 (0.0-0.2) X10*3/uL Abs Immat Gran (auto) 0.02 (0.00-0.03) X10*3/uL Absolute Neuts (auto) 3.6 (2.0-8.3) x10*3/uL Absolute Nucleated RBC 0.000 (0.0-0.012) X10*3/uL Nucleated RBC % (auto) 0.0 (0.0-0.2) /100WBC Sodium 140 (135-145) mmol/L Potassium 4.1 (3.3-5.1) mmol/L Chloride 112 H (96-108) mmol/L Carbon Dioxide 18 L (22-29) mmol/L Anion Gap 14 (12-20) BUN 9 (9-16) mg/dL Creatinine 0.72 (0.5-1.4) mg/dL Estim Creat Clear Calc 103.5 Estimated GFR > 60 Random Glucose 87 (60-115) mg/dL Calcium 9.2 (8.4-10.2) mg/dL Total Bilirubin 0.2 (0.0-1.0) mg/dL AST 17 (5-31) U/L ALT 17 (0-31) U/L Alkaline Phosphatase 66 (39-117) U/L Total Protein 7.8 (6.5-8.0) g/dL Albumin 3.7 (3.5-5.0) g/dL Beta HCG, Quant < 2 mIU/mL Urine Color Yellow Urine Appearance Cloudy Urine pH 7.0 (5.0-9.0) Ur Specific [place] 1.020 (1.005-1.025) Urine Protein Negative (Neg-Trace) mg/dL Urine Glucose (UA) Negative (Negative) mg/dL Urine Ketones Negative (Negative) mg/dL Urine Blood Negative (Negative) Urine Nitrite Negative (Negative) Ur Leukocyte Esterase Small (1+) H (Negative) Urine RBC 0-2 (0-2) /HPF Urine WBC 11-20 H (0-5) /HPF Ur Squamous Epith Cells 0-2 (0-2) /HPF Urine Bacteria None Seen (None Seen) Hyaline Casts 0-2 (0-2) /LPF Radiology Impression Discussion of test interpretation with radiology: I have reviewed the radiologist's reading. External Record Review External record reviewed: Inpatient record, Office record, Outpatient record, Prior outpatient labs, Prior outpatient radiology, Primary care record and Outside ED record Tests considered The following testing was considered but not selected: As above Prescription Management I considered prescription management with: Pain Medication Discharge Plan Discharge Clinical Impression: Urinary tract infection Patient Disposition: Home, Self-Care Instructions: Urinary Tract Infection in Women (DC) Additional Instructions: You have a urinary tract infection. Macrobid is an antibiotic please take as prescribed Make sure you stay hydrated Pyridium will help with urinary discomfort. This will turn your urine orange this is normal Follow up with your doctor as well as OBGYN as scheduled If symptoms persist or worsen you develop back pain, fever, nausea or vomiting return to the ED Tienes erum infecci?n del tracto urinario. Macrobid es un antibi?brooks, t?perla seg?n lo recetado. Aseg?rate de mantenerte hidratado Pyridium ayudar? con las molestias urinarias. Lenora nhan? que tu orina se vuelva naranja. Lenora es normal. Josefina un seguimiento con rebollar m?dico y con rebollar obstetra y ginec?logo seg?n lo programado. Si los s?ntomas persisten o empeoran, presenta dolor de espalda, fiebre, n?useas o v?mitos, regrese al servicio de urgencias. Prescriptions: New nitrofurantoin monohyd/m-cryst [Macrobid] 100 mg capsule 100 mg PO Q12H 7 Days Qty: 14 0RF Rx Instructions: must administer with a meal/food phenazopyridine [Pyridium] 200 mg tablet 200 mg PO TID PRN (Reason: pain) Qty: 6 0RF No Action Eliquis 5 mg Tablet 5 mg PO BID Qty: 180 3RF omeprazole 20 mg capsule,delayed release(DR/EC) 20 mg PO DAILY cetirizine 10 mg tablet 10 mg PO DAILY cholecalciferol (vitamin D3) [D3-2000] 50 mcg (2,000 unit) capsule 50 mcg PO DAILY diclofenac sodium 1 % gel 2 g topical BID loratadine 10 mg tablet 10 mg PO DAILY fluticasone propionate 50 mcg/actuation spray,suspension 2 spray intranasal DAILY albuterol sulfate [ProAir HFA] 90 mcg/actuation HFA aerosol inhaler 2 puff inhalation Q4H PRN (Reason: Shortness Of Breath Or Wheezing) ibuprofen 600 mg tablet 600 mg PO Q6H PRN (Reason: fever) baclofen 10 mg tablet 10 mg PO TID PRN (Reason: muscle spasm) acetaminophen 650 mg tablet extended release 650 mg PO Q8H PRN (Reason: Pain) Referrals: Katlyn Garcia DO [Primary Care Provider] - 5 days Interventions: ED Discharge Assessment Last Done: 07/27/23 17:47 Discharge Date/Time: 07/27/23 17:46 Print Language: Tongan
[2023-07-27 14:54] VITALS: BP 129/64; PULSE 67; RESP 18; TEMP 36.5; O2SAT 99; BMI 35.3
[2023-07-27 15:16] LABS: MANUAL DIFF FLAG NO
[2023-07-27 15:18] LABS: Appearance Urine Cloudy; Basophils Percent Auto 0.6 % (0-2); Color Urine Yellow; Eosinophils Absolute Auto 0.2 X10*3/uL (0.0-0.4); Eosinophils Percent Auto 2.2 % (0-4); Glucose Urine UA Negative (Negative); Hematocrit 34.7 % (37.0-47.0); Hemoglobin 10.6 g/dl (12.0-16.0); Imm Gran Abs Auto 0.02 X10*3/uL (0.00-0.03); Imm Gran Pct Auto 0.3 % (0.0-0.4); Leukocyte Esterase Urine Small (1+) (Negative); Lymphocytes Absolute Auto 2.8 X10*3/uL (1.2-4.9); Lymphocytes Percent Auto 38.6 % (20-40); Mean Corpuscular HGB Conc 30.5 g/dl (31.0-35.0); Mean Corpuscular Hemoglobin 25.4 pg (27.0-33.0); Mean Platelet Volume 10.2 fL (9.4-12.3); Monocytes Absolute Auto 0.6 X10*3/uL (0.1-1.2); Neutrophils Absolute Auto 3.6 x10*3/uL (2.0-8.3); Neutrophils Percent Auto 50.3 % (45-73); Nitrite Urine Negative (Negative); Platelet Count 256 X10*3/uL (160-400); Red Blood Count 4.18 X10*6/uL (4.20-5.50); Red Cell Distribution Width 15.2 % (11.0-16.0); UMIC TRIGGER UACC YES; Urine Blood Negative (Negative); Urine Ketones Negative (Negative); Urine Protein Negative (Neg-Trace); White Blood Count 7.1 X10*3/uL (4.8-10.8)
[2023-07-27 15:23] LABS: Bacteria Urine None Seen (None Seen); Hyaline Casts Urine 0-2 /LPF (0-2); RBC Urine 0-2 /HPF (0-2); Squamous Epithelial Cell Urine 0-2 /HPF (0-2); UACC Culture Trigger YES
[2023-07-27 15:42] LABS: Alanine Aminotransferase 17 U/L (0-31); Albumin Level 3.7 g/dL (3.5-5.0); Alkaline Phosphatase 66 U/L (39-117); Anion Gap 14 (12-20); Aspartate Amino Transferase 17 U/L (5-31); Bilirubin Total 0.2 mg/dL (0.0-1.0); Blood Urea Nitrogen 9 mg/dL (9-16); Calcium 9.2 mg/dL (8.4-10.2); Carbon Dioxide 18 mmol/L (22-29); Chloride 112 mmol/L (96-108); Creatinine Clr Calc Pharmacy 103.5; Estimated Glomerular Filt Rate > 60; Glucose Random 87 mg/dL (60-115); HCG Quantitative < 2 mIU/mL; Potassium 4.1 mmol/L (3.3-5.1); Sodium 140 mmol/L (135-145); Total Protein 7.8 g/dL (6.5-8.0)
[2023-07-27 17:29] VITALS: BP 115/68; PULSE 68; RESP 18; TEMP 36.6; O2SAT 98
== END 2023-07-27 17:46 | disposition home or self-care (01) ==
PROVIDERS: Registered Nurse Emergency; Emergency Provider Internal Medicine; PCP Family Medicine
DX: N39.0 Urinary tract infection, site not specified (principal); R30.0 Dysuria; R35.0 Frequency of micturition; R10.9 Unspecified abdominal pain; Z79.899 Other long term (current) drug therapy
CPT/HCPCS: 36415; 80053; 81001; 84702; 85025; 87086; 99283; 99284

== ENCOUNTER 2023-08-17 21:54 | Emergency (ER) | payer MEDICAID, SELFPAY ==
[2023-08-17 22:11] VITALS: BP 126/41; PULSE 72; RESP 18; TEMP 36.6; O2SAT 97; BMI 77.5
[2023-08-17 23:18] LABS: MANUAL DIFF FLAG NO
[2023-08-17 23:20] LABS: Basophils Percent Auto 0.3 % (0-2); Eosinophils Absolute Auto 0.2 X10*3/uL (0.0-0.4); Eosinophils Percent Auto 2.7 % (0-4); Hematocrit 31.2 % (37.0-47.0); Hemoglobin 9.8 g/dl (12.0-16.0); Imm Gran Abs Auto 0.01 X10*3/uL (0.00-0.03); Imm Gran Pct Auto 0.1 % (0.0-0.4); Lymphocytes Absolute Auto 2.6 X10*3/uL (1.2-4.9); Mean Corpuscular HGB Conc 31.4 g/dl (31.0-35.0); Mean Corpuscular Hemoglobin 25.9 pg (27.0-33.0); Mean Corpuscular Volume 82.3 fL (80.0-98.0); Mean Platelet Volume 10.1 fL (9.4-12.3); Monocytes Absolute Auto 0.7 X10*3/uL (0.1-1.2); Monocytes Percent Auto 10.6 % (2-11); Neutrophils Absolute Auto 3.4 x10*3/uL (2.0-8.3); Neutrophils Percent Auto 49.3 % (45-73); Platelet Count 212 X10*3/uL (160-400); Red Blood Count 3.79 X10*6/uL (4.20-5.50); Red Cell Distribution Width 16.3 % (11.0-16.0)
[2023-08-17 23:22] LABS: Appearance Urine Cloudy; Color Urine Yellow; Glucose Urine UA Negative (Negative); Leukocyte Esterase Urine Negative (Negative); Nitrite Urine Negative (Negative); Specific Gravity - Urine 1.015 (1.005-1.025); UMIC TRIGGER UACC YES; Urine Blood Trace (Negative); Urine Ketones Negative (Negative); Urine Protein Negative (Neg-Trace)
[2023-08-17 23:27] LABS: Bacteria Urine None Seen (None Seen); Hyaline Casts Urine 0-2 /LPF (0-2); RBC Urine 0-2 /HPF (0-2); Squamous Epithelial Cell Urine 0-2 /HPF (0-2); WBC Urine 0-5 /HPF (0-5)
[2023-08-17 23:35] LABS: Alanine Aminotransferase 26 U/L (0-31); Albumin Level 3.5 g/dL (3.5-5.0); Alkaline Phosphatase 74 U/L (39-117); Anion Gap 11 (12-20); Aspartate Amino Transferase 21 U/L (5-31); Bilirubin Direct 0.1 mg/dL (0.0-0.5); Bilirubin Total 0.3 mg/dL (0.0-1.0); Blood Urea Nitrogen 11 mg/dL (9-16); Calcium 8.6 mg/dL (8.4-10.2); Carbon Dioxide 21 mmol/L (22-29); Chloride 108 mmol/L (96-108); Creatinine Clr Calc Pharmacy 176.5; Estimated Glomerular Filt Rate > 60; Glucose Random 91 mg/dL (60-115); Lipase 26 U/L (8-78); Potassium 3.9 mmol/L (3.3-5.1); Sodium 136 mmol/L (135-145); Total Protein 7.2 g/dL (6.5-8.0)
--- NOTE | 2023-08-18 00:08 | ED_ITS ---
HPI - Abdominal Pain General Chief Complaint: Abdominal Pain Stated Complaint: abd pain Time Seen by Provider: 08/18/23 00:02 Source: patient, family and accreditation coordinator Mode of arrival: ambulatory Limitations: no limitations History of Present Illness HPI narrative: 52-year-old female Ukrainian-speaking came in for evaluation of abdominal pain that is resolved now. Mid abdominal colicky pain to the mid abdomen comes and goes lasts for about 10 minutes when it comes, no associated nausea or vomiting. Last time patient had abdominal pain was 2 hours ago now patient has no abdominal pain, no previous history of intra-abdominal surgery, normal bowel movement, no dysuria or frequency urination no blood in the urine. No fever or chills. Related Data Home Medications Medication Instructions Recorded Confirmed omeprazole 20 mg capsule,delayed 20 mg PO DAILY 07/04/21 06/12/23 release acetaminophen 650 mg 650 mg PO Q8H PRN Pain 08/22/22 06/12/23 tablet,extended release albuterol sulfate 90 mcg/actuation 2 puff inhalation Q4H PRN 08/22/22 06/12/23 aerosol inhaler (ProAir HFA) Shortness Of Breath Or Wheezing baclofen 10 mg tablet 10 mg PO TID PRN muscle spasm 08/22/22 06/12/23 cetirizine 10 mg tablet 10 mg PO DAILY 08/22/22 06/12/23 cholecalciferol (vitamin D3) 50 50 mcg PO DAILY 08/22/22 06/12/23 mcg (2,000 unit) capsule (D3-2000) diclofenac sodium 1 % topical gel 2 g topical BID pain 08/22/22 06/12/23 fluticasone propionate 50 2 spray intranasal DAILY 08/22/22 06/12/23 mcg/actuation nasal spray,suspension ibuprofen 600 mg tablet 600 mg PO Q6H PRN fever 08/22/22 06/12/23 loratadine 10 mg tablet 10 mg PO DAILY 08/22/22 06/12/23 Previous Rx's Medication Instructions Recorded apixaban 5 mg tablet (Eliquis) 5 mg PO BID #180 tabs 03/11/23 nitrofurantoin 100 mg PO Q12H 7 days #14 caps 07/27/23 monohydrate/macrocrystals 100 mg capsule (Macrobid) phenazopyridine 200 mg tablet 200 mg PO TID PRN pain 6 doses #6 07/27/23 (Pyridium) tabs Allergies Allergy/AdvReac Type Severity Reaction Status Date / Time No Known Allergies Allergy Verified 06/30/23 12:57 Review of Systems Review of Systems All other systems are reviewed and are negative Constitutional: Reports as per HPI and Reports no additional constitutional complaints Eyes: Reports as per HPI and Reports no additional eye complaints Reports system reviewed and no additional complaints, except as documented Cardiovascular: Reports as per HPI and Reports no additional cardiovascular complaints Respiratory: Reports as per HPI and Reports no additional respiratory complaints Gastrointestinal: Reports as per HPI and Reports no additional gastrointestinal complaints Genitourinary: Reports no additional female genitourinary complaints Musculoskeletal: Reports no additional musculoskeletal complaints Skin/Breast: Reports system reviewed and no additional complaints, except as docu Psychiatric: Reports no additional psychiatric complaints Endocrine: Reports no additional endocrine complaints Hematologic/Lymphatic: Reports no additional hematologic/lymphatic complaints Allergic/Immunologic: Reports no additional allergic/immunologic complaints Reports system reviewed and no additional complaints, except as documented and Reports Abnormal speech present [facility] Past Medical History Medical History Asthma Epidermal cyst GERD (gastroesophageal reflux disease) Surgical History History of tubal ligation History of tonsillectomy Family History Family History Father Cancer Mother Colon polyps Sister Colon polyps Social History Social History Household Members: Spouse Alcohol intake: current Alcohol intake frequency: holidays/special occasions only Patient Tobacco Use Status: Never used Tobacco Advance Directives: No Advance Directives Information Provided: Yes service: No Current occupational status: employed 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 Blood pressure elevated. Heart rate normal. Respiratory rate normal. Temperature normal. Oxygen saturation normal. Appearance: Alert. Oriented X3. No acute distress. Head: Normal external exam. Normocephalic. Atraumatic. No Joseph signs noted. No raccoon eyes noted Eyes: PERRLA. EOMI. Conjunctiva and sclera normal. Eyelids normal. ENT: TM's Normal. Pharynx normal. Uvula midline. Moist mucous membranes. No trismus noted. No drooling noted. No muffled voice noted. Neck: Normal inspection. Neck supple. FROM. No adenopathy. Thyroid Normal. No meningeal signs. No neck mass noted. CVS: Normal heart rate and rhythm. Heart sound normal. No murmurs noted. Pulses normal throughout. Respiratory: No respiratory distress. Painless inspiration. Breath sounds normal. No wheezes/rales/rhonchi noted. Chest nontender. No accessory muscle usage noted or decreased air movement noted. Abdomen: Soft and nontender. Bowel sounds normal in all 4 quadrants. No distention noted. No organomegaly noted. No visible injury noted. Back: No CVA tenderness. Full range of motion noted. Skin: Skin warm and dry. Normal skin color. Normal skin turgor. No rashes/lesions/lacerations noted. Extremities: No lower extremity edema. Extremities exhibit normal range of motion. Extremities nontender. Neuro: Oriented X 3. Cranial nerve exam: II-XII are grossly intact No motor deficit. No sensory deficit. Reflexes normal. Course Reevaluation(s) Reevaluation #1: came in for evaluation of an abdominal pain that is resolved now. Patient is able to tolerate p.o. intake in the ED a with no symptoms. Will discharge to follow-up with PCP. Time: 00:14 Medical Decision Making Differential Diagnosis Differential Diagnoses: The differential diagnosis associated with the presentation includes ( Gastritis, acid reflux, pancreatitis, gallbladder disease, electrolyte abnormality, severe anemia, UTI.) Admission/Observation Consideration of admission/observation: Escalation of care including admission/observation considered Lab Data MDM Lab Attestation statement: I reviewed the patient's lab results. 08/17/23 23:01 08/17/23 23:01 Labs: Lab Results 08/17/23 08/17/23 Range/Units 23:01 23:10 WBC 7.0 (4.8-10.8) X10*3/uL RBC 3.79 L (4.20-5.50) X10*6/uL Hgb 9.8 L (12.0-16.0) g/dl Hct 31.2 L (37.0-47.0) % MCV 82.3 (80.0-98.0) fL MCH 25.9 L (27.0-33.0) pg MCHC 31.4 (31.0-35.0) g/dl RDW 16.3 H (11.0-16.0) % Plt Count 212 (160-400) X10*3/uL MPV 10.1 (9.4-12.3) fL Immature Gran % (Auto) 0.1 (0.0-0.4) % Neut % (Auto) 49.3 (45-73) % Lymph % (Auto) 37.0 (20-40) % [place] % (Auto) 10.6 (2-11) % Eos % (Auto) 2.7 (0-4) % Baso % (Auto) 0.3 (0-2) % Lymph # (Auto) 2.6 (1.2-4.9) X10*3/uL [place] # (Auto) 0.7 (0.1-1.2) X10*3/uL Eos # (Auto) 0.2 (0.0-0.4) X10*3/uL Baso # (Auto) 0.0 (0.0-0.2) X10*3/uL Abs Immat Gran (auto) 0.01 (0.00-0.03) X10*3/uL Absolute Neuts (auto) 3.4 (2.0-8.3) x10*3/uL Absolute Nucleated RBC 0.000 (0.0-0.012) X10*3/uL Nucleated RBC % (auto) 0.0 (0.0-0.2) /100WBC Sodium 136 (135-145) mmol/L Potassium 3.9 (3.3-5.1) mmol/L Chloride 108 (96-108) mmol/L Carbon Dioxide 21 L (22-29) mmol/L Anion Gap 11 L (12-20) BUN 11 (9-16) mg/dL Creatinine 0.69 (0.5-1.4) mg/dL Estim Creat Clear Calc 176.5 Estimated GFR > 60 Random Glucose 91 (60-115) mg/dL Calcium 8.6 D (8.4-10.2) mg/dL Total Bilirubin 0.3 (0.0-1.0) mg/dL Direct Bilirubin 0.1 (0.0-0.5) mg/dL AST 21 (5-31) U/L ALT 26 (0-31) U/L Alkaline Phosphatase 74 (39-117) U/L Total Protein 7.2 (6.5-8.0) g/dL Albumin 3.5 (3.5-5.0) g/dL Lipase 26 (8-78) U/L Urine Color Yellow Urine Appearance Cloudy Urine pH 8.0 (5.0-9.0) Ur Specific [place] 1.015 (1.005-1.025) Urine Protein Negative (Neg-Trace) mg/dL Urine Glucose (UA) Negative (Negative) mg/dL Urine Ketones Negative (Negative) mg/dL Urine Blood Trace H (Negative) Urine Nitrite Negative (Negative) Ur Leukocyte Esterase Negative (Negative) Urine RBC 0-2 (0-2) /HPF Urine WBC 0-5 (0-5) /HPF Ur Squamous Epith Cells 0-2 (0-2) /HPF Urine Bacteria None Seen (None Seen) Hyaline Casts 0-2 (0-2) /LPF Discharge Plan Discharge Clinical Impression: Abdominal pain Patient Disposition: Home, Self-Care Instructions: Abdominal Pain (ED) Prescriptions: No Action Eliquis 5 mg Tablet 5 mg PO BID Qty: 180 3RF nitrofurantoin monohyd/m-cryst [Macrobid] 100 mg capsule 100 mg PO Q12H 7 Days Qty: 14 0RF Rx Instructions: must administer with a meal/food phenazopyridine [Pyridium] 200 mg tablet 200 mg PO TID PRN (Reason: pain) Qty: 6 0RF omeprazole 20 mg capsule,delayed release(DR/EC) 20 mg PO DAILY cetirizine 10 mg tablet 10 mg PO DAILY cholecalciferol (vitamin D3) [D3-2000] 50 mcg (2,000 unit) capsule 50 mcg PO DAILY diclofenac sodium 1 % gel 2 g topical BID loratadine 10 mg tablet 10 mg PO DAILY fluticasone propionate 50 mcg/actuation spray,suspension 2 spray intranasal DAILY albuterol sulfate [ProAir HFA] 90 mcg/actuation HFA aerosol inhaler 2 puff inhalation Q4H PRN (Reason: Shortness Of Breath Or Wheezing) ibuprofen 600 mg tablet 600 mg PO Q6H PRN (Reason: fever) baclofen 10 mg tablet 10 mg PO TID PRN (Reason: muscle spasm) acetaminophen 650 mg tablet extended release 650 mg PO Q8H PRN (Reason: Pain) Referrals: Physician,Unknown J [Primary Care Provider] - Stand Alone Forms: Work/School Release
--- NOTE | 2023-08-18 00:37 | PC.NURSE ---
pt assessed at d/c, reported no abd pain when d/c
== END 2023-08-18 00:39 | disposition home or self-care (01) ==
PROVIDERS: Emergency Provider Emergency Medicine
DX: R10.84 Generalized abdominal pain (principal); J45.909 Unspecified asthma, uncomplicated; K21.9 Gastro-esophageal reflux disease without esophagitis
CPT/HCPCS: 36415; 80053; 81001; 82248; 83690; 85025; 99283; 99284

== ENCOUNTER 2023-08-18 14:00 | Outpatient (RCR) | payer MEDICAID, SELFPAY ==
--- NOTE | 2023-08-11 16:02 | MHC.PT.EP ---
[facility] [place] Office [place] Office [place] Office [address] [phone] F: [phone] F: [phone] F: [phone] F: [phone] Physical Therapy Plan of Care Date of Evaluation: 08/11/23 Date of Surgery: Diagnosis: L knee effusion/ OA of L knee Assessment: Pt is a 52 y/o female referred to PT for eval and treat of L knee effusion/ OA which Pt reports limits her ability to go down stairs, perform heavy HH chores, squatting and kneeling activities, as well as entering and exiting a vehicle secondary to decreased L knee strength, decreased B hip strength, TTP of lateral and medial L knee joint line, increased L knee tissue tension, mild gait abnormality, Hx of OA, and pain. Pt is deemed an appropriate candidate to receive skilled PT services to address her physical impairments in order to improve her functional ability. Frequency and Duration: The patient will be seen 2 x / wk x 5 wks. Short Term Goals: Initiate home program. Pt will improve baseline pain to < 0-4/10; initial: 0-6/10. Group President Goals: I with home program. Pt will be able to descend stairs with symmetrical pattern and managed Sx. Improve L knee extension MMT by at least 1/2 MMT grade; initial> 4/5 and mildly painful. Pt will improve her LEFI outcome measure by at least 9 points. Treatment Plan: Modalities to reduce pain, spasms and effusion. Manual therapy to restore motion and function. Therapeutic exercise to improve strength and flexibility. Neuromuscular re-education for posture and balance. Therapeutic activities to return to functional activities of daily living. Electronically signed by: Brian Gallegos PT. Please sign and return to therapist. Thank you for your referral.
--- NOTE | 2023-09-26 11:57 | MHC.PT.DC ---
[facility] [place] Office [place] Office [place] Office [address] [phone] F: [phone] F: [phone] F: [phone] F: [phone] Physical Therapy Discharge Report Diagnosis: L knee effusion/ OA of L knee Date of Surgery: Date of Evaluation: 08/11/23 Date of Discharge: 09/26/23 Treatments to Date: 2 Cancellations to Date: No Shows to Date: Discharge Status: Patient Elected to Stop Discharge Summary: Good overall lazaro. no adverse effects. Pt to start stretching quad at home. Progress as lazaro. Reports more pain with ascending stairs than descending. Electronically signed by: Brian Gallegos PT. Please sign and return to therapist. Thank you for your referral.
== END 2023-09-26 11:57 | disposition home or self-care (01) ==
LOC: HO.PT 14:00
PROVIDERS: PCP Family Medicine; Visit Provider Orthopaedic Surgery
DX: M25.461 Effusion, right knee (principal); M17.11 Unilateral primary osteoarthritis, right knee
CPT/HCPCS: 97110; 97140; 97161

== ENCOUNTER → 2023-10-31 08:56 | Outpatient (BNVA) | payer MEDICAID, SELFPAY | PROVIDERS: Visit Provider Physician Assistant ==

== ENCOUNTER 2023-11-11 13:00 | Outpatient (AMB) | payer MEDICAID, SELFPAY ==
--- NOTE | 2023-11-11 13:02 | MHC.OFFVISWM ---
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 Allergies No Known Allergies Allergy (Verified 06/30/23 12:57) Medication List - Last Reconciled 11/11/23 by Jacque Serna PA-C acetaminophen ER 650 mg PO Q8H PRN albuterol sulfate 90 mcg/actuation (ProAir HFA) 2 puffs inhalation Q4H PRN apixaban (Eliquis) 5 mg PO BID baclofen 10 mg PO TID PRN cetirizine 10 mg PO DAILY cholecalciferol (vitamin D3) (D3-2000) 50 mcg PO DAILY fluticasone propionate 50 mcg/actuation 2 sprays intranasal DAILY ibuprofen 600 mg PO Q6H PRN omeprazole 40 mg PO DAILY HPI HPI Comments History of Present Illness Details This is a 53 year old woman who is here to start SWL program with SWL classes. Her goal is get her rid of her aches and pains. She reports first being concerned about her weight 2 years. She has tried multiple methods of weight loss including Herbalife and Keto without permanent results. She lives with her daughter. 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 Has follow up on December 28 for further testing. States has no restrictions for exercise. She wakes at: 8:30 am bed at 10 pm Breakfast:11am - 1 toast with coffee - evaporated milk and 2 sugars Lunch: 3 pm - rice/beans, chicken or pork, no vegetables. Fruit juice Dinner: 6pm - rice and beans After dinner: nothing Other snacks: every once in a while has a bag of chips Liquids: soda - 2 times weekly Alcohol intake: 1 beer every 2 weeks, tobacco: none, marijuana: none Exercise: none. August last time. Last mammogram: 6 months ago Last pap smear: 6 months ago control method: post menopausal TREVOR:0 ESS:7 GERD:0- did not fill out properly QOL: 158 PFSH Medical History (Updated 11/11/23 @ 13:03 by Jacque Serna PA-C) Asthma Epidermal cyst GERD (gastroesophageal reflux disease) Surgical History (Updated 11/11/23 @ 13:11 by Jacque Serna PA-C) Hx of heart surgery History of tubal ligation History of tonsillectomy Family History Father Cancer Mother Colon polyps Sister Colon polyps Social History (Updated 10/31/23 @ 09:14 by Kathy Reynoso [facility]) Household Members: Spouse Alcohol intake: former Patient Tobacco Use Status: Never used Tobacco service: No Current occupational status: employed 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 She will start MWL classes and watch all classes before appt with Marita. 1. Adequate sleep of 7-8 hours per night discussed 2. Healthy meal plan - stop skipping meals and stop all sweetened drinks All meals/MR's need to take 20 minutes to complete coffee with 2% milk and no sugar 10 am - protein shake with water or UAM, Premeir or Orgain 3 pm - 4 oz , 8 forks of protein, 6 oz vegetable, 1/2 c rice/beans 7 pm- protein shake or yogurt, 1 serving furi Exercise - 5d/week, at lest 30 minutes. LS 2 miles Pt will purchase body composition analyzer (recommended list given to patient) and weight herself weekly. Next appt with Marita in 4 weeks. Text me with any questions and weekly weights. Patient is morbidly obese and is not considered stable at this time.?I spent a total of 60 minutes reviewing/updating records, examining the patient and counseling the patient on weight management as detailed above. (2) GERD (gastroesophageal reflux disease): Code(s): K21.9 - Gastro-esophageal reflux disease without esophagitis Plan: should improve with proper eating Telehealth Telehealth Location of provider rendering services: practice address Location of patient: address on file Patient Identification confirmed using: Name, : Yes Telehealth method: video Patient verbally consented to treatment: Yes Patient verbally consented to billing insurance company: Yes Coding Level of Care Code Tele New Pt Level 5 (76332) Diagnoses Obesity E66.9 GERD (gastroesophageal reflux disease) K21.9
== END 2023-11-11 13:49 | disposition home or self-care (01) ==
LOC: HO.HBS 13:23
PROVIDERS: PCP Family Medicine; Visit Provider Physician Assistant
DX: E66.01 Morbid (severe) obesity due to excess calories (principal); Z68.45 Body mass index [BMI] 70 or greater, adult; K21.9 Gastro-esophageal reflux disease without esophagitis
CPT/HCPCS: 99205

== ENCOUNTER → 2023-11-11 13:00 | Outpatient (BNVA) | payer MEDICAID, SELFPAY | PROVIDERS: PCP Family Medicine; Visit Provider Physician Assistant ==

== ENCOUNTER 2023-12-10 10:22 | Outpatient (AMB) | payer MEDICAID, SELFPAY ==
--- NOTE | 2023-12-10 10:14 | A.OFFVIS_ITS ---
Intake VS Expanded 12/10/23 10:41 Height 5 ft 4 in Weight 202 lb BMI 34.7 Intake Visit Reasons: VIDEO Initial Nutrition MWL Vice President Quality Required: Yes Vice President Quality Name: [id number] Information Interpreted: non-clinical & clinical Allergies No Known Allergies Allergy (Verified 12/09/23 10:17) HPI Nutrition Presentation Details MWL Reason for consult elevated BMI Diet Assmnt Details I am not losing weight and I am getting desperate Yesterday 1pm piece of fish or boiled chicken dinner, spinach, lettuce, jesus Sometimes uses the protein shakes, she does enjoy them. Dietary counseling reduction Who buys your food self Who prepares/cooks your food self Diagnosis Nutrition problem #1 overweight/obesity As related to (etiology) #1 excess energy intake and physical inactivity As evidenced by (sign/symptom) #1 high BMI Monitoring/Goals Nutrition problem monitoring total energy intake, level of knowledge/skill, total PRO intake, total CHO intake and weight Learning/Education Readiness to learn good Stages of change preparation Most Recent Diabetes Results: Cholesterol 185 mg/dL (<200) 07/08/23 HDL Cholesterol 43 mg/dL (>40) 07/08/23 Triglycerides 307 mg/dL (<150) H 07/08/23 Creatinine 0.81 mg/dL (0.5-1.4) 12/09/23 Blood Urea Nitrogen 11 mg/dL (9-16) 12/09/23 Sodium 139 mmol/L (135-145) 12/09/23 Potassium 4.0 mmol/L (3.3-5.1) 12/09/23 Chloride 109 mmol/L (96-108) H 12/09/23 Carbon Dioxide 24 mmol/L (22-29) 12/09/23 Calcium 9.0 mg/dL (8.4-10.2) 12/09/23 AST 16 U/L (5-31) 12/09/23 ALT 18 U/L (0-31) 12/09/23 Total Protein 7.7 g/dL (6.5-8.0) 12/09/23 Albumin 3.9 g/dL (3.5-5.0) 12/09/23 [facility] Medical History (Updated 12/09/23 @ 10:29 by Alli Little MD) Asthma Epidermal cyst GERD (gastroesophageal reflux disease) Surgical History (Updated 12/09/23 @ 10:29 by Alli Little MD) Hx of heart surgery History of tubal ligation History of tonsillectomy Family History Father Cancer Mother Colon polyps Sister Colon polyps Social History Household Members: Spouse Alcohol intake: former Patient Tobacco Use Status: Never used Tobacco service: No Current occupational status: employed 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 Nutrition education provided today. Explained the importance of structured meals, high in protein with fiber, and making sure she is eating enough. Discussed appropriate portions for carbs and balancing her plate. Will have f/u with PA next month Telehealth Telehealth Location of provider rendering services: practice address Location of patient: address on file Patient Identification confirmed using: Name, : Yes Telehealth method: voice only Patient verbally consented to treatment: Yes Patient verbally consented to billing insurance company: Yes Patient informed of any privacy concerns related to visit: Yes Minutes spent on Phone/Video with Pt.: 30 Coding Level of Care Code Nutr Indiv Intake (63312) Diagnoses Obesity (BMI 30-39.9) E66.9 Time Spent (min) 30
[2023-12-10 10:41] VITALS: BMI 34.7
== END 2023-12-10 10:30 | disposition home or self-care (01) ==
LOC: HO.HBS 10:24
PROVIDERS: PCP Family Medicine; Visit Provider Dietitian, Registered
DX: E66.9 Obesity, unspecified (principal)

== ENCOUNTER → 2023-12-10 10:22 | Outpatient (BNVA) | payer MEDICAID, SELFPAY | PROVIDERS: PCP Family Medicine; Visit Provider Dietitian, Registered | DX: E66.9 Obesity, unspecified (principal); Z68.34 Body mass index [BMI] 34.0-34.9, adult | CPT/HCPCS: 97802 ==

== ENCOUNTER 2023-12-29 10:00 | Outpatient (REF) | payer MEDICAID, SELFPAY ==
[2023-12-29 12:02] LABS: Hematocrit 35.4 % (37.0-47.0); Hemoglobin 10.5 g/dl (12.0-16.0); Mean Corpuscular HGB Conc 29.7 g/dl (31.0-35.0); Mean Corpuscular Hemoglobin 24.1 pg (27.0-33.0); Mean Corpuscular Volume 81.2 fL (80.0-98.0); Mean Platelet Volume 11.4 fL (9.4-12.3); Platelet Count 216 X10*3/uL (160-400); Red Blood Count 4.36 X10*6/uL (4.20-5.50); Red Cell Distribution Width 15.8 % (11.0-16.0)
[2023-12-29 12:55] LABS: Iron 39 mcg/dL (30-160); Percent Iron Saturation 10 % (15-50); Total Iron Binding Capacity 387 mcg/dL (228-428); Unsaturated Iron Binding 348 ug/dL
[2023-12-29 12:59] LABS: Ferritin 13 ng/mL (10-250)
[2023-12-29 13:16] LABS: Folate 12.9 ng/mL (> or = 4.0)
[2023-12-29 17:21] LABS: Vitamin B12 374 pg/mL (200-900)
== END 2023-12-29 10:01 | disposition home or self-care (01) ==
LOC: HO.HHCL 10:00
PROVIDERS: Visit Provider Family Medicine
DX: M54.50 Low back pain, unspecified (principal)
CPT/HCPCS: 36415; 82607; 82728; 82746; 83540; 85027

== ENCOUNTER 2024-03-17 08:55 | Outpatient (REF) | payer MEDICAID, SELFPAY ==
--- NOTE | ~2024-03-17 | MM_ITS ---
EXAMINATION: MM SCREENING DIGITAL BREAST TOMOSYNTHESIS, BILATERAL CLINICAL INFORMATION: Screening. Asymptomatic. COMPARISON: Mammography: This study is compared with prior exams dating back to 2019. TECHNIQUE: Digital breast tomosynthesis is performed in both the craniocaudal and mediolateral oblique views along with computer-aided detection (CAD). Synthesized 2D images are generated from the tomosynthesis. FINDINGS: There are scattered areas of fibroglandular density (ACR BI-RADS breast composition Category b). There are no significant masses, abnormal calcifications, or other abnormalities. Scattered, small calcifications are present throughout each breast which are unchanged and benign. MM/MM tomosynthesis screening BI IMPRESSION: No mammographic evidence of malignancy. ASSESSMENT: BI-RADS BI-RADS 2 - Benign Findings RECOMMENDATION: Routine annual mammography screening. 1 year F/U This examination should not preclude the clinical evaluation of a suspicious palpable abnormality. This patient's information was entered into a reminder system with a target due date for their next mammogram.
--- NOTE | ~2024-03-17 | US_ITS ---
EXAMINATION: US ABDOMEN COMPLETE CLINICAL INFORMATION: Intermittent epigastric pain. COMPARISON: Ultrasound abdomen complete 08/19/2022 and 03/30/2020. TECHNIQUE: Real-time imaging of the abdominal viscera. Limited visualization due to bowel gas and body habitus. FINDINGS: PANCREAS: Limited visualization of pancreatic tail and head. Imaged portion of pancreatic body is unremarkable. ABDOMINAL AORTA: The proximal, mid, and distal segments are normal in caliber. INFERIOR VENA CAVA: LIVER: Hepatomegaly, 17.0 cm. Mildly increased hepatic parenchymal heterogeneity and echogenicity could be associated with hepatocellular disease/hepatic steatosis and substantially limits visualization. Correlation with liver function tests and clinical exam recommended to determine further management. GALLBLADDER: No gallstones. No gallbladder wall thickening. COMMON BILE DUCT: Normal in caliber measuring 0.4 cm in diameter. RIGHT KIDNEY: No hydronephrosis. No renal calculi. Limited visualization. The kidney measures 12.3 cm in maximum dimension. LEFT KIDNEY: No hydronephrosis. No renal calculi. Limited visualization. The kidney measures 12.3 cm in maximum dimension. SPLEEN: Normal. The spleen measures 11.5 cm in maximum dimension. FREE FLUID: None. US/US abdomen complete IMPRESSION: Hepatomegaly, 17.0 cm. Mildly increased hepatic parenchymal heterogeneity and echogenicity could be associated with hepatocellular disease/hepatic steatosis and substantially limits visualization. Correlation with liver function tests and clinical exam recommended to determine further management.
== END 2024-03-17 08:56 | disposition home or self-care (01) ==
LOC: HO.US 08:55
PROVIDERS: PCP Family Medicine; Visit Provider Family Medicine
DX: Z12.31 Encounter for screening mammogram for malignant neoplasm of breast (principal); R10.13 Epigastric pain
CPT/HCPCS: 76700; 77063; 77067

== ENCOUNTER → 2024-03-17 09:45 | Outpatient (BNV) | payer MEDICAID, SELFPAY | PROVIDERS: PCP Family Medicine; Visit Provider Radiology Diagnostic Radiology | DX: Z12.31 Encounter for screening mammogram for malignant neoplasm of breast (principal) | CPT/HCPCS: 77063; 77067 ==

== ENCOUNTER 2024-04-24 18:52 | Emergency (ER) | payer MEDICAID, SELFPAY ==
--- NOTE | ~2024-04-24 | XR_ITS ---
EXAMINATION: XR CHEST CLINICAL INFORMATION: Chest pain COMPARISON: CT from 11/05/2022 TECHNIQUE: 2 views of the chest were obtained. FINDINGS: Heart is normal in size. Lung parenchyma is clear. No pleural effusions. Amplatzer occlusion device seen within the heart. XR/XR chest 2V IMPRESSION: No acute process.
--- NOTE | 2024-04-24 18:54 | ECG_ITS ---
Test Reason : CHEST PAIN Blood Pressure : / mmHG Vent. Rate : 068 BPM Atrial Rate : 068 BPM P-R Int : 138 ms QRS Dur : 086 ms QT Int : 402 ms P-R-T Axes : 017 004 010 degrees QTc Int : 427 ms Normal sinus rhythm Minimal voltage criteria for LVH, may be normal variant ( R in aVL ) Borderline ECG No previous ECGs available Referred By: Generic ED Physician Electronically Signed By:KRYSTEN DARNELL MD
--- NOTE | 2024-04-24 19:05 | ED_ITS ---
HPI - General Adult General Chief complaint: Chest Pain Stated complaint: Chest pain with arm pain Time Seen by Provider: 04/24/24 20:05 Source: patient and family () Mode of arrival: ambulatory Limitations: no limitations History of Present Illness ED Provider: NELDA LUNSFORD PA-C HPI narrative: 53-year-old female with past medical history significant for GERD presents to the ED today for evaluation of substernal chest pain x2 days. Pain has been constant and is work with deep breathing. pain is now radiating into right shoulder and is worse with movement of the right shoulder. No pain with exertion. Taking tylenol at home with temporary relief. Denies injury or trauma to the chest. Denies recent travel or long car rides. Denies fever/chills, N/V, diaphoresis, cough, hemoptysis, sob dyspnea, LE pain/ swelling. Admits to cardiac surgery at [facility] in September 2023 to repair PFO. No complications. Related Data Home Medications ?Medication ?Instructions ?Recorded ?Confirmed acetaminophen 650 mg 650 mg PO Q8H PRN Pain 08/22/22 12/09/23 tablet,extended release albuterol sulfate 90 mcg/actuation 2 puff inhalation Q4H PRN 08/22/22 12/09/23 aerosol inhaler (ProAir HFA) Shortness Of Breath Or Wheezing baclofen 10 mg tablet 10 mg PO TID PRN muscle spasm 08/22/22 12/09/23 cetirizine 10 mg tablet 10 mg PO DAILY 08/22/22 12/09/23 cholecalciferol (vitamin D3) 50 50 mcg PO DAILY 08/22/22 12/09/23 mcg (2,000 unit) capsule (D3-1999) fluticasone propionate 50 2 spray intranasal DAILY 08/22/22 12/09/23 mcg/actuation nasal spray,suspension ibuprofen 600 mg tablet 600 mg PO Q6H PRN fever 08/22/22 12/09/23 Previous Rx's ?Medication ?Instructions ?Recorded apixaban 5 mg tablet (Eliquis) 5 mg PO BID #180 tabs 03/11/23 omeprazole 40 mg capsule,delayed 40 mg PO DAILY #20 caps 08/18/23 release ferrous sulfate 325 mg (65 mg 325 mg PO DAILY #90 tabs 12/09/23 iron) tablet naproxen 500 mg tablet 500 mg PO Q8-12H PRN pain (scale 04/24/24 score 1-3) #20 tabs Allergies Allergy/AdvReac Type Severity Reaction Status Date / Time No Known Allergies Allergy Verified 04/24/24 19:09 Review of Systems 2 Review of Systems: Constitutional: No fever, chills, fatigue, night sweats, weight changes ENT/Mouth: No ear pain, hearing loss, nasal congestion, sinus pain, rhinorrhea, sore throat Eyes: No eye pain, swelling, redness, vision changes, discharge Cardio: No palpitations, LIN, orthopnea, peripheral edema, +chest pain Pulm: No SOB, cough, sputum, wheezing, dyspnea, hemoptysis GI: No nausea, vomiting, hematemesis, abdominal pain, diarrhea, constipation, hematochezia, melena : No irregular bleeding, dysuria, frequency, urgency, hesitancy, hematuria, flank pain, urinary flow changes, urinary incontinence or retention MSK: No back pain, neck pain, joint pain, myalgias Skin: No lesions, rashes Neuro: No weakness, numbness, paresthesias, LOC, dizziness, headache Psych: No anxiety/panic, depression, SI/HI, AH/VH All other systems reviewed and are negative. [facility] Past Medical History Attestation statement: The following information was validated with the patient. 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 Physical Exam ED Vital Signs: Vital Signs - 24 hr 04/24/24 19:07 04/24/24 20:37 Temperature 97.8 F 98.4 F Pulse Rate 67 60 Respiratory Rate 14 15 Blood Pressure 124/47 L 127/64 Pulse Oximetry 99 100 Oxygen Delivery Method Room Air Room Air BMI result Body Mass Index 34.2 Vital signs stable, afebrile Const General: cooperative, healthy appearing, comfortable and no acute distress Orientation/consciousness: patient oriented x3 Limitations: no limitations HENMT Head: Yes normal to inspection, Yes No palpable skull fracture present, Yes normocephalic and Yes atraumatic Eyes General: appearance normal, both eyes and all related structures Conjunctivae: conjunctivae normal Sclerae: sclerae normal Pupils: Equal, round and reactive pupils present EOM: EOMs intact bilaterally Neck Neck: Yes normal visual inspection, Yes full ROM, Yes no lymphadenopathy and Yes no JVD Chest Chest palpation & inspection: normal inspection of the chest and normal palpation of entire chest wall Resp Effort & Inspection: normal respiratory effort and able to speak in complete sentences Auscultation: clear to auscultation bilaterally Cardio Jugular venous distension: no JVD Rate: regular rate Rhythm: regular rhythm GI Inspection: Yes normal to inspection Skin General skin exam: no rashes or lesions noted Neuro General: patient oriented x3 and gait normal Cranial nerves: Yes Equal, round and reactive pupils present Extrem General: Yes normal to inspection Course Course Course Narrative: RME performed by Sara Walker PA-C. Patient is a 53 year old assigned female at presenting to the emergency department with chest pain. Detailed physical exam and review of systems are deferred to the primary school principal. EKG, labs, imaging, and swabs ordered. Patient placed back in the waiting room pending room availability and results. Reevaluation(s) Reevaluation #1: 5655-- CXR unremarkable. troponin flat. cbc with microcytic anemia, h&h appears around patient's baseline when compared to priors and is above transfusion threshold. chemistry without acute electrolyte abnormality requiring intervention. normal liver and renal function. UA w/o infection. > on re-evaluation, patient reports almost complete symptom resolution with toradol. able to move her right arm without discomfort. is requesting to go home which i feel is reasonable given unremarkable work up. tolerating PO intake. Patient has remained stable throughout ED visit today. Discussed worrisome signs and symptoms and when to return to the ED. All questions answered at this time. Patient is agreeable with disposition and stable for discharge. Medications Administered Discontinued Medications Generic Name Dose Route Start Last Admin Trade Name Freq PRN Reason Stop Dose Admin Ketorolac Tromethamine 30 mg 04/24/24 20:13 04/24/24 21:10 Ketorolac Tromethamine 30 Mg/Ml Vial IM 04/24/24 20:14 30 mg ONCE ONE Administration Medical Decision Making Medical Decision Making [facility] Narrative: 53-year-old female with past medical history significant for GERD presents to the ED today for evaluation of substernal chest pain x2 days. Vital signs stable, afebrile. Not tachycardic. Not hypoxic. She is nontoxic-appearing and in no acute distress. No diaphoresis. On exam, anterior/lateral/posterior chest wall without tenderness. No palpable crepitus or deformity. No tenderness noted to right shoulder. Full ROM intact with some discomfort on abduction. 2+ radial/ulnar pulse intact. RRR. No JVD. No pitting or peripheral edema. Lungs are CTA bilaterally. No calf tenderness bilaterally. Differential diagnosis includes ACS, arrhythmia, costochondritis, pleuritis, msk sprain/ strain, viral syndrome, pneumonia. Lower suspicion for PE, effusion, rupture aneurysm. Plan for labs, ekg, cxr, and re-evaluation. Differential Diagnosis Differential Diagnoses: The differential diagnosis associated with the presentation includes as above. Admission/Observation Not indicated Lab Data [facility] Lab Attestation statement: I reviewed the patient's lab results. as above. 04/24/24 19:19 04/24/24 19:19 Labs: Lab Results 04/24/24 Range/Units 19:19 WBC 9.1 (4.8-10.8) X10*3/uL RBC 4.06 L (4.20-5.50) X10*6/uL Hgb 9.9 L (12.0-16.0) g/dl Hct 32.0 L (37.0-47.0) % MCV 78.8 L (80.0-98.0) fL MCH 24.4 L (27.0-33.0) pg MCHC 30.9 L (31.0-35.0) g/dl RDW 16.3 H (11.0-16.0) % Plt Count 244 (160-400) X10*3/uL MPV 10.0 (9.4-12.3) fL Immature Gran % (Auto) 0.3 (0.0-0.4) % Neut % (Auto) 62.0 (45-73) % Lymph % (Auto) 29.4 (20-40) % [place] % (Auto) 6.9 (2-11) % Eos % (Auto) 1.1 (0-4) % Baso % (Auto) 0.3 (0-2) % Lymph # (Auto) 2.7 (1.2-4.9) X10*3/uL [place] # (Auto) 0.6 (0.1-1.2) X10*3/uL Eos # (Auto) 0.1 (0.0-0.4) X10*3/uL Baso # (Auto) 0.0 (0.0-0.2) X10*3/uL Abs Immat Gran (auto) 0.03 (0.00-0.03) X10*3/uL Absolute Neuts (auto) 5.7 (2.0-8.3) x10*3/uL Absolute Nucleated RBC 0.000 (0.0-0.012) X10*3/uL Nucleated RBC % (auto) 0.0 (0.0-0.2) /100WBC Sodium 137 (135-145) mmol/L Potassium 3.7 (3.3-5.1) mmol/L Chloride 105 (96-108) mmol/L Carbon Dioxide 22 (22-29) mmol/L Anion Gap 14 (12-20) BUN 10 (9-16) mg/dL Creatinine 0.79 (0.5-1.4) mg/dL Estim Creat Clear Calc 91.7 Estimated GFR > 60 Random Glucose 81 (60-115) mg/dL Calcium 9.2 (8.4-10.2) mg/dL Magnesium 2.1 (1.6-2.6) mg/dL Total Bilirubin 0.4 (0.0-1.0) mg/dL AST 16 (5-31) U/L ALT 19 (0-31) U/L Alkaline Phosphatase 79 (39-117) U/L Troponin I High Sens < 2.7 (<3.5-17.0) ng/L Total Protein 7.6 (6.5-8.0) g/dL Albumin 3.8 (3.5-5.0) g/dL Urine Color Yellow Urine Appearance Clear Urine pH 5.5 (5.0-9.0) Ur Specific [place] 1.015 (1.005-1.025) Urine Protein Negative (Neg-Trace) mg/dL Urine Glucose (UA) Negative (Negative) mg/dL Urine Ketones Negative (Negative) mg/dL Urine Blood Trace H (Negative) Urine Nitrite Negative (Negative) Ur Leukocyte Esterase Negative (Negative) Urine RBC 0-2 (0-2) /HPF Urine WBC 0-5 (0-5) /HPF Ur Squamous Epith Cells 3-5 (0-2) /HPF Urine Bacteria None Seen (None Seen) Hyaline Casts 0-2 (0-2) /LPF Influenza Type A (PCR) NEGATIVE (Negative) Influenza Type B (PCR) NEGATIVE (Negative) RSV RNA Qual (PCR) NEGATIVE (Negative) SARS-CoV-2 RNA (RT-PCR) NEGATIVE (Negative) Independent Interpretation I performed an independent interpretation of an: EKG and Plain X-Ray Interpretation: EKG showing normal sinus rhythm with a rate of 68 beats per minute, QT you, you 427, no acute ischemic changes or ST elevations. CXR without infiltrate or consolidation agree with radiologist's interpretation. Radiology Impression Discussion of test interpretation with radiology: I have reviewed the radiologist's reading. Radiologist Impression: EXAMINATION: XR CHEST CLINICAL INFORMATION: Chest pain COMPARISON: CT from 11/05/2022 TECHNIQUE: 2 views of the chest were obtained. FINDINGS: Heart is normal in size. Lung parenchyma is clear. No pleural effusions. Amplatzer occlusion device seen within the heart. XR/XR chest 2V IMPRESSION: No acute process. Independent Historian Clinical information obtained from an independent historian. History obtained from or confirmed by: Spouse () External Record Review External record reviewed: Inpatient record, Office record, Outpatient record, Prior outpatient labs, Prior outpatient radiology, Primary care record and Outside ED record Prescription Management I considered prescription management with: Pain Medication (naproxen) Social Determinants Patient?s care significantly limited by Social Determinants of Health including: Other Social Determinant of Health Critical Care Time Critical Care Time Critical Care Time: No Discharge Plan Discharge Clinical Impression: Chest pain Patient Disposition: Home, Self-Care Instructions: Chest Pain (ED) Additional Instructions: Your blood work today is reassuring. Your cardiac enzyme is normal. Your EKG is normal. Your chest x-ray is normal. Your symptoms improved with NSAIDs today. Naproxen as an anti-inflammatory that has been sent to your pharmacy for you to take as needed for pain/discomfort. Please follow-up with your drum tester regarding today's visit. Return with new or worsening symptoms. In the case of an emergency call 911. Prescriptions: New naproxen 500 mg tablet 500 mg PO Q8-12H PRN (Reason: pain (scale score 1-3)) Qty: 20 0RF No Action Eliquis 5 mg Tablet 5 mg PO BID Qty: 180 3RF ferrous sulfate 325 mg (65 mg iron) Tablet 325 mg PO DAILY Qty: 90 3RF omeprazole 40 mg capsule,delayed release(DR/EC) 40 mg PO DAILY Qty: 20 0RF cetirizine 10 mg tablet 10 mg PO DAILY cholecalciferol (vitamin D3) [D3-2000] 50 mcg (2,000 unit) capsule 50 mcg PO DAILY fluticasone propionate 50 mcg/actuation spray,suspension 2 spray intranasal DAILY albuterol sulfate [ProAir HFA] 90 mcg/actuation HFA aerosol inhaler 2 puff inhalation Q4H PRN (Reason: Shortness Of Breath Or Wheezing) ibuprofen 600 mg tablet 600 mg PO Q6H PRN (Reason: fever) baclofen 10 mg tablet 10 mg PO TID PRN (Reason: muscle spasm) acetaminophen 650 mg tablet extended release 650 mg PO Q8H PRN (Reason: Pain) Referrals: Katlyn Garcia DO [Primary Care Provider] - Interventions: ED Discharge Assessment Last Done: 04/24/24 22:28 Discharge Date/Time: 04/24/24 22:34 Print Language: Albanian
[2024-04-24 19:07] VITALS: BP 124/47; PULSE 67; RESP 14; TEMP 36.6; O2SAT 99; BMI 34.2
[2024-04-24 19:24] LABS: MANUAL DIFF FLAG NO
[2024-04-24 19:26] LABS: Basophils Percent Auto 0.3 % (0-2); Eosinophils Absolute Auto 0.1 X10*3/uL (0.0-0.4); Eosinophils Percent Auto 1.1 % (0-4); Hemoglobin 9.9 g/dl (12.0-16.0); Imm Gran Abs Auto 0.03 X10*3/uL (0.00-0.03); Imm Gran Pct Auto 0.3 % (0.0-0.4); Lymphocytes Absolute Auto 2.7 X10*3/uL (1.2-4.9); Lymphocytes Percent Auto 29.4 % (20-40); Mean Corpuscular HGB Conc 30.9 g/dl (31.0-35.0); Mean Corpuscular Hemoglobin 24.4 pg (27.0-33.0); Mean Corpuscular Volume 78.8 fL (80.0-98.0); Monocytes Absolute Auto 0.6 X10*3/uL (0.1-1.2); Monocytes Percent Auto 6.9 % (2-11); Neutrophils Absolute Auto 5.7 x10*3/uL (2.0-8.3); Platelet Count 244 X10*3/uL (160-400); Red Blood Count 4.06 X10*6/uL (4.20-5.50); Red Cell Distribution Width 16.3 % (11.0-16.0); White Blood Count 9.1 X10*3/uL (4.8-10.8)
[2024-04-24 19:27] LABS: Appearance Urine Clear; Color Urine Yellow; Glucose Urine UA Negative (Negative); Leukocyte Esterase Urine Negative (Negative); Nitrite Urine Negative (Negative); PH 5.5 (5.0-9.0); Specific Gravity - Urine 1.015 (1.005-1.025); UMIC TRIGGER UACC YES; Urine Blood Trace (Negative); Urine Ketones Negative (Negative); Urine Protein Negative (Neg-Trace)
[2024-04-24 19:32] LABS: Bacteria Urine None Seen (None Seen); Hyaline Casts Urine 0-2 /LPF (0-2); RBC Urine 0-2 /HPF (0-2); WBC Urine 0-5 /HPF (0-5)
[2024-04-24 19:49] LABS: Alanine Aminotransferase 19 U/L (0-31); Albumin Level 3.8 g/dL (3.5-5.0); Alkaline Phosphatase 79 U/L (39-117); Anion Gap 14 (12-20); Aspartate Amino Transferase 16 U/L (5-31); Bilirubin Total 0.4 mg/dL (0.0-1.0); Blood Urea Nitrogen 10 mg/dL (9-16); Calcium 9.2 mg/dL (8.4-10.2); Carbon Dioxide 22 mmol/L (22-29); Chloride 105 mmol/L (96-108); Creatinine Clr Calc Pharmacy 91.7; Estimated Glomerular Filt Rate > 60; Glucose Random 81 mg/dL (60-115); Magnesium 2.1 mg/dL (1.6-2.6); Potassium 3.7 mmol/L (3.3-5.1); Sodium 137 mmol/L (135-145); Total Protein 7.6 g/dL (6.5-8.0)
[2024-04-24 20:03] LABS: Troponin-I High Sensitivity < 2.7 ng/L (<3.5-17.0)
[2024-04-24 20:06] LABS: Influenza A PCR NEGATIVE (Negative); Influenza B PCR NEGATIVE (Negative); Resp Syncy Virus RNA Qual PCR NEGATIVE (Negative); SARS COV2 PCR INHOUSE NEGATIVE (Negative)
[2024-04-24 20:37] VITALS: BP 127/64; PULSE 60; RESP 15; TEMP 36.9; O2SAT 100
[2024-04-24] MEDS: Ketorolac Tromethamine 30 MG/ML VIAL IM (21:10)
--- NOTE | 2024-04-24 21:29 | PC.NURSE ---
Pt ca&ox4, no signs of distress. Pt with family at bedside. Plan of care ongoing.
[2024-04-24 22:28] VITALS: BP 127/64; PULSE 60; RESP 14; RESP 15; TEMP 36.9; O2SAT 100
== END 2024-04-24 22:34 | disposition home or self-care (01) ==
PROVIDERS: Physician Assistant Medical; Emergency Provider Emergency Medicine; PCP Family Medicine
DX: R07.9 Chest pain, unspecified (principal); Z03.818 Encounter for observation for suspected exposure to other biological agents ruled out; J45.909 Unspecified asthma, uncomplicated
CPT/HCPCS: 0241U; 71046; 80053; 81001; 83735; 84484; 85025; 93005; 96372; 99284; J1885

== ENCOUNTER → 2024-04-24 18:54 | Outpatient (BNV) | payer MEDICAID, SELFPAY | PROVIDERS: Emergency Provider Emergency Medicine; PCP Family Medicine; Visit Provider Internal Medicine Cardiovascular Disease | DX: R07.9 Chest pain, unspecified (principal) | CPT/HCPCS: 93010 ==

== ENCOUNTER 2024-05-11 12:57 | Outpatient (AMB) | payer MEDICAID, SELFPAY ==
--- NOTE | 2024-05-11 13:03 | A.OFFVIS_ITS ---
Vital Signs 05/11/24 13:05 Height 5 ft 4 in Weight 200 lb 9.93 oz BMI 34.4 BP 120/64 Blood Pressure Location Lt brachial Position Sitting Pulse 75 Intake Visit Reasons: Pre colonoscopy/abnormal liver US Intake Note: Jodi presents in the office as a pre colonoscopy and abnormal LFTs. CC: She states that she is no having any symptoms. Psychology Clinician Required: Yes Psychology Clinician Name: Lian [id number] Allergies No Known Allergies Allergy (Verified 05/11/24 13:07) HPI HPI Pre colonoscopy/abnormal liver US: Details: Assessment & Plan (1) Pre-op examination: Code(s): Z01.818 - Encounter for other preprocedural examination Plan: Welsh #[id number] This is her first colonoscopy There are no prior problems with anesthesia or sedation. Her asthma is well controlled and she denies any cardiac problems. No ID problems. Her mother and sister had polyps but no known CRC. (2) Family history of polyps in the colon: Comment: Mother and sister Code(s): Z83.71 - Family history of colonic polyps Orders: Orders Comprehensive Met. Panel Today Z01.818 - Encounter for other preprocedural ex amination Complete Blood Count Auto Diff Today Z01.818 - Encounter for other preprocedural examination Medications: New peg 3350-electrolytes 236-22.74-6.74 -5.86 gram (Golytely) until fecal effluent is clear; do not exceed a total volume of 2,000 mL 240 mL PO Q10M 1 day 4,000 mL 0RF Z12.11 - Encounter for screening for malignant neoplasm of colon LABS Laboratory Tests 05/17/20 04/24/24 09:20 19:19 WBC 4.5 L 9.1 Hgb 10.5 L 9.9 L Hct 33.8 L 32.0 L MCV 88.3 78.8 L MCH 27.4 24.4 L MCHC 30.9 L RDW 16.3 H Plt Count 244 Est GFR (Non-Af Amer) > 60 Estimated GFR > 60 Total Bilirubin 0.4 AST 16 ALT 19 Alkaline Phosphatase 79 Laboratory Tests 07/08/23 08:48 Hep Bs Antigen Negative Hep B DNA copies/mL NOT DETECTED Hep B DNA (IU/mL) NOT DETECTED Hepatitis C Ab (EIA) Nonreactive HIV 1&2 Ab/P24 Ag 4thGn Nonreactive COLONOSCOPY Appears never to have been obtained BIOPSY ULTRASOUND OF THE ABDOMEN 03/29/24 FINDINGS: PANCREAS: Limited visualization of pancreatic tail and head. Imaged portion of pancreatic body is unremarkable. ABDOMINAL AORTA: The proximal, mid, and distal segments are normal in caliber. INFERIOR VENA CAVA: LIVER: Hepatomegaly, 17.0 cm. Mildly increased hepatic parenchymal heterogeneity and echogenicity could be associated with hepatocellular disease/hepatic steatosis and substantially limits visualization. Correlation with liver function tests and clinical exam recommended to determine further management. GALLBLADDER: No gallstones. No gallbladder wall thickening. COMMON BILE DUCT: Normal in caliber measuring 0.4 cm in diameter. RIGHT KIDNEY: No hydronephrosis. No renal calculi. Limited visualization. The kidney measures 12.3 cm in maximum dimension. LEFT KIDNEY: No hydronephrosis. No renal calculi. Limited visualization. The kidney measures 12.3 cm in maximum dimension. SPLEEN: Normal. The spleen measures 11.5 cm in maximum dimension. FREE FLUID: None. US/US abdomen complete IMPRESSION: Hepatomegaly, 17.0 cm. Mildly increased hepatic parenchymal heterogeneity and echogenicity could be associated with hepatocellular disease/hepatic steatosis and substantially limits visualization. Correlation with liver function tests and clinical exam recommended to determine further management. TODAY'S VISIT Welsh #[id number] Pt has been lost to follow up since 2021; apparently she has been re-referred for a ?abnormal ultrasound.? With normal parameters on all of her liver blood work, this is likely an US over-read or mild KELLEY. I will add a liver fibrosis panel to be sure. She says she has been told in the past that she has fatty liver. She had to go to [place] for a family emergency and this is why she was never scheduled for a colonoscopy. She is now agreeable to getting back in line for this. This is her first colonoscopy There are no prior problems with anesthesia or sedation. Her asthma is well controlled and she denies any cardiac problems. No ID problems. Her mother and sister had polyps but no known CRC. 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 Review of Systems Const Denies fatigue, Denies fever(s), Denies night sweats, Denies poor appetite and Denies weight loss ENT Reports Normal hearing present, Denies dental pain, Denies dysphagia, Denies hearing loss, Denies mouth pain, Denies odynophagia, Denies throat swelling, Denies tongue swelling and Reports other (Dentition adequate) Card Reports no additional complaints Resp Reports no additional complaints GI Details: Denies abdominal pain, Denies melena, Denies bloating, Denies hematochezia, Reports constipation, Denies GI cramping, Denies dysphagia, Denies excessive flatus, Denies early satiety, Reports heartburn, Denies diarrhea, Denies nausea, Denies odynophagia, Denies vomiting and Denies hematemesis Skin/Breast Denies pruritus, Denies lesions, Denies rash and Denies jaundice Neuro Reports Normal hearing present and Denies Abnormal speech present Endo Denies fatigue Aller/Immun Denies throat swelling and Denies tongue swelling Physical Exam Const General: cooperative, no acute distress, well developed and well groomed Nutritional Appearance: well nourished and obese morbidly obese Orientation/consciousness: oriented to person, oriented to place and oriented to time Limitations: language barrier HEENT Head: Yes normocephalic and Yes atraumatic Eyes General: appearance normal, both eyes and all related structures Pupils: Equal, round and reactive pupils present Neck Neck: Yes normal visual inspection and Yes no lymphadenopathy Thyroid: Thyroid normal Resp Effort & Inspection: normal respiratory effort and able to speak in complete sentences Auscultation: clear to auscultation bilaterally Cardio Rate: regular rate Rhythm: regular rhythm Heart sounds: Normal, physiologic split S2 sound present Peripheral pulses: radial pulses present and posterior tibial pulses present GI Inspection: No distended, Yes Abdominal panniculus present and Yes obesity Palpation (GI): Soft to palpation, nontender, no guarding, not rigid and No hepatosplenomegaly present Percussion: Yes normal to percussion Auscultation: normal bowel sounds Rectal Exam - Female: deferred Skin General skin exam: no rashes or lesions noted, turgor normal, skin not dry, no jaundice, No spider nevi and no striae Rashes: no rashes Nails: normal Neuro General: oriented to person, oriented to place and oriented to time Cranial nerves: Yes Equal, round and reactive pupils present and Yes Normal hearing present Speech: No Abnormal speech present Extrem General: Yes normal to inspection, No clubbing, No cyanosis and No edema Psych Appearance: grossly normal and well kempt Mental Status: mental status grossly normal Speech and movement: Normal speech and movement present Affect: normal affect Attitude: cooperative Thought process: Normal thought process present and not confabulating Thought content: Normal thought content present Insight: Limited insight present (Psych) Judgement: Limited judgement present (Psych) Results Reviewed Results Reviewed: Laboratory Tests 05/17/20 04/24/24 09:20 19:19 WBC 4.5 L 9.1 Hgb 10.5 L 9.9 L Hct 33.8 L 32.0 L MCV 88.3 78.8 L MCH 27.4 24.4 L MCHC 30.9 L RDW 16.3 H Plt Count 244 Est GFR (Non-Af Amer) > 60 Estimated GFR > 60 Total Bilirubin 0.4 AST 16 ALT 19 Alkaline Phosphatase 79 Laboratory Tests 07/08/23 08:48 Hep Bs Antigen Negative Hep B DNA copies/mL NOT DETECTED Hep B DNA (IU/mL) NOT DETECTED Hepatitis C Ab (EIA) Nonreactive HIV 1&2 Ab/P24 Ag 4thGn Nonreactive COLONOSCOPY Appears never to have been obtained BIOPSY ULTRASOUND OF THE ABDOMEN 03/29/24 FINDINGS: PANCREAS: Limited visualization of pancreatic tail and head. Imaged portion of pancreatic body is unremarkable. ABDOMINAL AORTA: The proximal, mid, and distal segments are normal in caliber. INFERIOR VENA CAVA: LIVER: Hepatomegaly, 17.0 cm. Mildly increased hepatic parenchymal heterogeneity and echogenicity could be associated with hepatocellular disease/hepatic steatosis and substantially limits visualization. Correlation with liver function tests and clinical exam recommended to determine further management. GALLBLADDER: No gallstones. No gallbladder wall thickening. COMMON BILE DUCT: Normal in caliber measuring 0.4 cm in diameter. RIGHT KIDNEY: No hydronephrosis. No renal calculi. Limited visualization. The kidney measures 12.3 cm in maximum dimension. LEFT KIDNEY: No hydronephrosis. No renal calculi. Limited visualization. The kidney measures 12.3 cm in maximum dimension. SPLEEN: Normal. The spleen measures 11.5 cm in maximum dimension. FREE FLUID: None. US/US abdomen complete IMPRESSION: Hepatomegaly, 17.0 cm. Mildly increased hepatic parenchymal heterogeneity and echogenicity could be associated with hepatocellular disease/hepatic steatosis and substantially limits visualization. Correlation with liver function tests and clinical exam recommended to determine further management. Assessment & Plan Assessment & Plan (1) Family history of polyps in the colon: Comment: Mother and sister Code(s): Z83.71 - Family history of colonic polyps Category: Medical (2) Morbid obesity: Code(s): E66.01 - Morbid (severe) obesity due to excess calories Category: Medical (3) Hepatic steatosis: Comment: On US with normal LFT's Code(s): K76.0 - Fatty (change of) liver, not elsewhere classified Category: Medical (4) Pre-op examination: Code(s): Z01.818 - Encounter for other preprocedural examination Category: Medical Plan Welsh #[id number] Pt has been lost to follow up since 2021; apparently she has been re-referred for a ?abnormal ultrasound.? With normal parameters on all of her liver blood work, this is likely an US over-read or mild KELLEY. I will add a liver fibrosis panel to be sure. She says she has been told in the past that she has fatty liver. She had to go to [place] for a family emergency and this is why she was never scheduled for a colonoscopy. She is now agreeable to getting back in line for this. This is her first colonoscopy There are no prior problems with anesthesia or sedation. Her asthma is well controlled and she denies any cardiac problems. No ID problems. Her mother and sister had polyps but no known CRC. Orders: Orders Liver Fibrosis Pnl Today Z83.71 - Family history of colonic polyps Colonoscopy - GI Use Only Today Z83.71 - Family history of colonic polyps Medications: New peg 3350-electrolytes 236-22.74-6.74 -5.86 gram (Golytely) until fecal effluent is clear; do not exceed a total volume of 2,000 mL 240 mL PO Q10M 1 day 4,000 mL 0RF Z12.11 - Encounter for screening for malignant neoplasm of colon bisacodyl (Dulcolax (bisacodyl)) 10 mg (2 x 5 mg) PO BEDTIME 2 days 4 tabs 0RF Coding Level of Care Code Est Pt Level 4 (28928) Diagnoses Family history of polyps in the colon Z83.71 Morbid obesity E66.01 Hepatic steatosis K76.0 Pre-op examination Z01.818
[2024-05-11 13:05] VITALS: BP 120/64; PULSE 75; BMI 34.4
== END 2024-05-11 13:57 | disposition home or self-care (01) ==
PROVIDERS: PCP Family Medicine; Visit Provider Nurse Practitioner
DX: Z01.818 Encounter for other preprocedural examination (principal); Z12.11 Encounter for screening for malignant neoplasm of colon; Z83.719 Family history of colon polyps, unspecified; K76.0 Fatty (change of) liver, not elsewhere classified
CPT/HCPCS: 99212

== ENCOUNTER 2024-05-11 12:57 | Outpatient (REF) | payer MEDICAID, SELFPAY ==
[2024-05-19 16:27] LABS: FIB-ALT 12 U/L (6-29); FIB-Alpha-2-Macroglobulin 129 mg/dL (106-279); FIB-Apolipoprotein A1 124 mg/dL (101-198); FIB-GGT 47 U/L (3-70); FIB-Haptoglobin 41 mg/dL (43-212); FIB-Total Bilirubin 0.2 mg/dL (0.2-1.2); Liver Fibrosis Score 0.13; Liver Fibrosis Stage F0; Nec Inflam Act Grade A0; Nec Inflam Act Score 0.03
== END 2024-05-11 12:58 | disposition home or self-care (01) ==
LOC: HO.LAB 12:57
PROVIDERS: PCP Family Medicine; Visit Provider Nurse Practitioner
DX: Z01.818 Encounter for other preprocedural examination (principal); K76.0 Fatty (change of) liver, not elsewhere classified; E66.01 Morbid (severe) obesity due to excess calories; Z83.719 Family history of colon polyps, unspecified
CPT/HCPCS: 36415; 81596; 99212

== ENCOUNTER 2024-05-19 16:16 | Outpatient (REF) | payer MEDICAID, SELFPAY ==
[2024-05-20 09:50] LABS: H Pylori Breath Test Positive (Negative)
== END 2024-05-19 16:17 | disposition home or self-care (01) ==
LOC: HO.HHCLNP 16:16
PROVIDERS: Visit Provider Family Medicine
DX: R10.13 Epigastric pain (principal)
CPT/HCPCS: 83013

== ENCOUNTER 2024-07-01 18:56 | Outpatient (REF) | payer MEDICAID, SELFPAY ==
[2024-07-02 07:50] LABS: H Pylori Breath Test Negative (Negative)
== END 2024-07-01 18:57 | disposition home or self-care (01) ==
LOC: HO.HHCLNP 18:56
PROVIDERS: Visit Provider Family Medicine
DX: A04.8 Other specified bacterial intestinal infections (principal)
CPT/HCPCS: 83013

== ENCOUNTER 2024-07-27 08:58 | Outpatient (REF) | payer MEDICAID, SELFPAY ==
[2024-07-27 11:35] LABS: Hematocrit 36.9 % (37.0-47.0); Hemoglobin 12.4 g/dl (12.0-16.0); Mean Corpuscular HGB Conc 33.6 g/dl (31.0-35.0); Mean Corpuscular Hemoglobin 29.7 pg (27.0-33.0); Mean Corpuscular Volume 88.5 fL (80.0-98.0); Mean Platelet Volume 10.6 fL (9.4-12.3); Platelet Count 247 X10*3/uL (160-400); Red Blood Count 4.17 X10*6/uL (4.20-5.50); Red Cell Distribution Width 16.8 % (11.0-16.0)
[2024-07-27 12:02] LABS: Estimated Average Glucose 88 mg/dL; Hemoglobin A1C 107.2002 umol/L; Hemoglobin A1c % 4.7 % (<6.0); Total Hemoglobin (HGBA1C) 3843.0649 umol/L
[2024-07-27 12:07] LABS: Alanine Aminotransferase 41 U/L (0-31); Albumin Level 3.8 g/dL (3.5-5.0); Alkaline Phosphatase 73 U/L (39-117); Anion Gap 10 (12-20); Aspartate Amino Transferase 33 U/L (5-31); Bilirubin Direct 0.1 mg/dL (0.0-0.5); Bilirubin Total 0.4 mg/dL (0.0-1.0); Blood Urea Nitrogen 10 mg/dL (9-16); Calcium 9.4 mg/dL (8.4-10.2); Carbon Dioxide 23 mmol/L (22-29); Chloride 109 mmol/L (96-108); Cholesterol 190 mg/dL (<200); Estimated Glomerular Filt Rate > 60; Glucose Random 91 mg/dL (60-115); HDL Cholesterol 40 mg/dL (>40); Iron 148 mcg/dL (30-160); LDL Cholesterol Calculated 104 mg/dL (<100); Percent Iron Saturation 51 % (15-50); Potassium 4.1 mmol/L (3.3-5.1); Sodium 138 mmol/L (135-145); Total Iron Binding Capacity 291 mcg/dL (228-428); Total Protein 7.3 g/dL (6.5-8.0); Triglycerides 233 mg/dL (<150); Unsaturated Iron Binding 143 ug/dL
[2024-07-27 12:09] LABS: Ferritin 33 ng/mL (10-250); Free T4 (Free Thyroxine) 0.98 ng/dL (0.71-1.85); Thyroid Stimulating Hormone 1.56 uIU/mL (0.32-4.0); Vitamin D 25-OH Total 30.3 ng/mL (>30)
[2024-07-27 12:16] LABS: Folate 13.2 ng/mL (> or = 4.0); Vitamin B12 318 pg/mL (200-900)
[2024-07-28 10:09] LABS: HBS Num1 32.15 mIU/mL (0-7.99); HBsAGNum1 0.45 S/CO (0.00-0.99); HIV AB/AG Nonreactive (Nonreactive); HIV Num 1 0.04 S/CO (0.00-0.99); Hepatitis B Surface Antigen Negative (Negative); ~HepC Num1 0.18 S/CO (0.00-0.79); ~Hepatitis B Surface Antibody REACTIVE (Nonreactive); ~Hepatitis C Antibody Nonreactive (Nonreactive)
[2024-07-29 02:23] LABS: RPR Rapid Plasma Reagin NON-REACTIVE (NON-REACTIVE)
[2024-07-29 12:48] LABS: Alpha Fetoprotein 2.8 ng/mL
== END 2024-07-27 08:59 | disposition home or self-care (01) ==
LOC: HO.HHCL 08:58
PROVIDERS: Visit Provider Family Medicine
DX: Z00.00 Encounter for general adult medical examination without abnormal findings (principal); N93.9 Abnormal uterine and vaginal bleeding, unspecified; Q21.12 Patent foramen ovale; K76.0 Fatty (change of) liver, not elsewhere classified; K21.9 Gastro-esophageal reflux disease without esophagitis; K59.09 Other constipation; J45.20 Mild intermittent asthma, uncomplicated; D64.9 Anemia, unspecified; M54.50 Low back pain, unspecified; H66.92 Otitis media, unspecified, left ear; I73.00 Raynaud's syndrome without gangrene; E66.09 Other obesity due to excess calories; Z68.33 Body mass index [BMI] 33.0-33.9, adult; R10.13 Epigastric pain
CPT/HCPCS: 36415; 80048; 80061; 80076; 82105; 82306; 82607; 82728; 82746; 83036; 83540; 84439; 84443; 85027; 86592; 86706; 86803; 87340; 87389

== ENCOUNTER 2024-07-30 11:35 | Outpatient (REF) | payer MEDICAID, SELFPAY ==
--- NOTE | ~2024-07-30 | XR_ITS ---
EXAMINATION: XR SHOULDER, LEFT CLINICAL INFORMATION: Worsening, chronic left shoulder pain. COMPARISON: None available. TECHNIQUE: AP, Grashey, and scapular Y views of the left shoulder. FINDINGS: The bones and soft tissues are normal. No fracture. Glenohumeral and acromioclavicular alignment is anatomic with normal joint space. No abnormal soft tissue calcifications. XR/XR shoulder LT min 2V IMPRESSION: Unremarkable examination. Electronically signed by: Ty Palacios MD 07/30/2024 02:12 PM EDT
== END 2024-07-30 11:36 | disposition home or self-care (01) ==
LOC: HO.HHCX 11:35
PROVIDERS: Visit Provider Family Medicine
DX: M25.512 Pain in left shoulder (principal); G89.29 Other chronic pain
CPT/HCPCS: 73030

== ENCOUNTER 2024-09-01 23:11 | Emergency (ER) | payer MEDICAID, SELFPAY ==
[2024-09-01 23:17] VITALS: BP 126/66; PULSE 80; RESP 18; TEMP 36.4; O2SAT 100; BMI 35.5
[2024-09-02 00:07] LABS: Hematocrit 32.7 % (37.0-47.0); Hemoglobin 11.4 g/dl (12.0-16.0); Mean Corpuscular HGB Conc 34.9 g/dl (31.0-35.0); Mean Corpuscular Hemoglobin 31.1 pg (27.0-33.0); Mean Corpuscular Volume 89.1 fL (80.0-98.0); Mean Platelet Volume 9.8 fL (9.4-12.3); Platelet Count 233 X10*3/uL (160-400); Red Blood Count 3.67 X10*6/uL (4.20-5.50); Red Cell Distribution Width 13.5 % (11.0-16.0); White Blood Count 7.3 X10*3/uL (4.8-10.8)
[2024-09-02 00:09] LABS: Appearance Urine Clear; Color Urine Yellow; Glucose Urine UA Negative (Negative); Leukocyte Esterase Urine Trace (Negative); Nitrite Urine Negative (Negative); PH 5.5 (5.0-9.0); UMIC TRIGGER UACC YES; Urine Blood Negative (Negative); Urine Ketones Negative (Negative); Urine Protein Negative (Neg-Trace)
[2024-09-02 00:11] LABS: Bacteria Urine None Seen (None Seen); Hyaline Casts Urine 0-2 /LPF (0-2); RBC Urine 0-2 /HPF (0-2); Squamous Epithelial Cell Urine 0-2 /HPF (0-2); UACC Culture Trigger YES
[2024-09-02 00:22] LABS: Alanine Aminotransferase 39 U/L (0-31); Albumin Level 3.7 g/dL (3.5-5.0); Alkaline Phosphatase 74 U/L (39-117); Anion Gap 16 (12-20); Aspartate Amino Transferase 33 U/L (5-31); Bilirubin Total 0.3 mg/dL (0.0-1.0); Blood Urea Nitrogen 14 mg/dL (9-16); Calcium 8.8 mg/dL (8.4-10.2); Carbon Dioxide 21 mmol/L (22-29); Chloride 107 mmol/L (96-108); Estimated Glomerular Filt Rate > 60; Glucose Random 105 mg/dL (60-115); Potassium 3.7 mmol/L (3.3-5.1); Sodium 140 mmol/L (135-145); Total Protein 7.2 g/dL (6.5-8.0)
--- NOTE | 2024-09-02 01:40 | ED.FEMALEGU ---
HPI - Female Genitourinary General Chief complaint: Urogenital-Female Stated complaint: abd pain Time Seen by Provider: 09/02/24 01:40 Source: patient Mode of arrival: ambulatory Limitations: no limitations History of Present Illness ED Provider: prabha SHEN Narrative: Patient's history of chronic constipation has not have bowel movement in last 3 weeks complaining of lower abdominal discomfort in the back pain for last few days also complaining of dysuria and frequency no fever no chills no nausea no vomiting Related Data Home Medications ?Medication ?Instructions ?Recorded ?Confirmed acetaminophen 650 mg 650 mg PO Q8H PRN Pain 08/22/22 08/05/24 tablet,extended release albuterol sulfate 90 mcg/actuation 2 puff inhalation Q4H PRN 08/22/22 08/05/24 aerosol inhaler (ProAir HFA) Shortness Of Breath Or Wheezing baclofen 10 mg tablet 10 mg PO TID PRN muscle spasm 08/22/22 08/05/24 cetirizine 10 mg tablet 10 mg PO DAILY 08/22/22 08/05/24 cholecalciferol (vitamin D3) 50 50 mcg PO DAILY 08/22/22 08/05/24 mcg (2,000 unit) capsule (D3-2000) fluticasone propionate 50 2 spray intranasal DAILY 08/22/22 08/05/24 mcg/actuation nasal spray,suspension ibuprofen 600 mg tablet 600 mg PO Q6H PRN fever 08/22/22 08/05/24 docusate sodium 100 mg capsule 100 mg PO BID 05/11/24 08/05/24 furosemide 20 mg tablet 20 mg PO DAILY PRN swelling 05/11/24 08/05/24 pantoprazole 40 mg tablet,delayed 40 mg PO BID 05/11/24 08/05/24 release polyethylene glycol 3350 17 17 g PO DAILY PRN constipation 05/11/24 08/05/24 gram/dose oral powder (Gavilax) Previous Rx's ?Medication ?Instructions ?Recorded naproxen 500 mg tablet 500 mg PO Q8-12H PRN pain (scale 04/24/24 score 1-3) #20 tabs ferrous sulfate 325 mg (65 mg 325 mg PO DAILY #90 tabs 05/03/24 iron) tablet bisacodyl 5 mg tablet,delayed 10 mg (2 x 5 mg) PO BEDTIME 2 days 05/11/24 release (Dulcolax (bisacodyl)) #4 tabs peg 3350-electrolytes 236 240 ml PO Q10M 1 day #4,000 mL 05/11/24 gram-22.74 gram-6.74 gram-5.86 gram solution (Golytely) naproxen 500 mg tablet (Naprosyn) 500 mg PO BID PRN pain #30 tabs 09/02/24 polyethylene glycol 3350 17 17 g PO DAILY #238 grams 09/02/24 gram/dose oral powder (Miralax) sennosides 8.6 mg tablet (Senna 8.6 mg PO BEDTIME PRN constipation 09/02/24 Laxative) #30 tabs Allergies Allergy/AdvReac Type Severity Reaction Status Date / Time No Known Allergies Allergy Verified 09/01/24 23:19 Review of Systems Review of Systems: Yes all other systems are reviewed and are negative PMFSH Past Medical History Medical History Asthma Epidermal cyst GERD (gastroesophageal reflux disease) Surgical History Hx of heart surgery History of tubal ligation History of tonsillectomy Family History Family History Father Cancer Mother Colon polyps Sister Colon polyps Maternal Uncle Colon cancer Social History Social History Household Members: Spouse Alcohol intake: former Patient Tobacco Use Status: Never used Tobacco Advance Directives: No Advance Directives Information Provided: Yes service: No Current occupational status: employed 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 Oriented X3. No acute distress. Eyes: No pallor or icterus ENT: Pharynx normal. Oral Mucosa moist Neck: Normal inspection. Neck supple. CVS: Normal heart rate and rhythm. Pulses normal. Respiratory: No respiratory distress. Equal air entry bilateral, no wheezing/rales/rhonchi Abdomen: Soft and deep tenderness suprapubic area. Bowel sounds are present, no mass palpable, no CVA tenderness Skin: Skin warm and dry. Normal skin color. Normal skin turgor. Extremities: No lower extremity edema. No calf tenderness rectal: Empty rectum no stool Neuro: Oriented X 3. No motor deficit. Medications Administered Discontinued Medications Generic Name Dose Route Start Last Admin Trade Name Freq PRN Reason Stop Dose Admin Bisacodyl 10 mg 09/02/24 02:24 09/02/24 03:13 Bisacodyl 5 Mg Tablet.Dr PO 09/02/24 02:25 10 mg ONCE ONE Administration Magnesium Hydroxide 30 ml 09/02/24 02:24 09/02/24 03:13 Milk Of Magnesia 30 Ml Oral.Susp PO 09/02/24 02:25 30 ml ONCE ONE Administration Naproxen 500 mg 09/02/24 02:25 09/02/24 03:13 Naproxen 500 Mg Tablet PO 09/02/24 02:26 500 mg ONCE ONE Administration Medical Decision Making Lab Data MDM Lab Attestation statement: I reviewed the patient's lab results. 09/01/24 23:58 09/01/24 23:58 Labs: Lab Results 09/01/24 Range/Units 23:58 WBC 7.3 (4.8-10.8) X10*3/uL RBC 3.67 L (4.20-5.50) X10*6/uL Hgb 11.4 L (12.0-16.0) g/dl Hct 32.7 L (37.0-47.0) % MCV 89.1 (80.0-98.0) fL MCH 31.1 (27.0-33.0) pg MCHC 34.9 (31.0-35.0) g/dl RDW 13.5 (11.0-16.0) % Plt Count 233 (160-400) X10*3/uL MPV 9.8 (9.4-12.3) fL Absolute Nucleated RBC 0.000 (0.0-0.012) X10*3/uL Nucleated RBC % (auto) 0.0 (0.0-0.2) /100WBC Sodium 140 (135-145) mmol/L Potassium 3.7 (3.3-5.1) mmol/L Chloride 107 (96-108) mmol/L Carbon Dioxide 21 L (22-29) mmol/L Anion Gap 16 (12-20) BUN 14 (9-16) mg/dL Creatinine 0.85 (0.5-1.4) mg/dL Estim Creat Clear Calc 87.0 Estimated GFR > 60 Random Glucose 105 (60-115) mg/dL Calcium 8.8 D (8.4-10.2) mg/dL Total Bilirubin 0.3 (0.0-1.0) mg/dL AST 33 H (5-31) U/L ALT 39 H (0-31) U/L Alkaline Phosphatase 74 (39-117) U/L Total Protein 7.2 (6.5-8.0) g/dL Albumin 3.7 (3.5-5.0) g/dL Urine Color Yellow Urine Appearance Clear Urine pH 5.5 (5.0-9.0) Ur Specific [place] 1.020 (1.005-1.025) Urine Protein Negative (Neg-Trace) mg/dL Urine Glucose (UA) Negative (Negative) mg/dL Urine Ketones Negative (Negative) mg/dL Urine Blood Negative (Negative) Urine Nitrite Negative (Negative) Ur Leukocyte Esterase Trace H (Negative) Urine RBC 0-2 (0-2) /HPF Urine WBC 6-10 H (0-5) /HPF Ur Squamous Epith Cells 0-2 (0-2) /HPF Urine Bacteria None Seen (None Seen) Hyaline Casts 0-2 (0-2) /LPF Discharge Plan Discharge Clinical Impression: Low back pain, Chronic constipation Patient Disposition: Home, Self-Care Instructions: Constipation (ED), Acute Low Back Pain (ED) Additional Instructions: Drink plenty of fluids Take medication constipation as prescribed Naproxen for pain Prescriptions: New sennosides [Senna Laxative] 8.6 mg tablet 8.6 mg PO BEDTIME PRN (Reason: constipation) Qty: 30 0RF polyethylene glycol 3350 [Miralax] 17 gram/dose powder 17 g PO DAILY Qty: 238 0RF naproxen [Naprosyn] 500 mg tablet 500 mg PO BID PRN (Reason: pain) Qty: 30 0RF No Action ferrous sulfate 325 mg (65 mg iron) Tablet 325 mg PO DAILY Qty: 90 3RF naproxen 500 mg tablet 500 mg PO Q8-12H PRN (Reason: pain (scale score 1-3)) Qty: 20 0RF cetirizine 10 mg tablet 10 mg PO DAILY cholecalciferol (vitamin D3) [D3-2000] 50 mcg (2,000 unit) capsule 50 mcg PO DAILY fluticasone propionate 50 mcg/actuation spray,suspension 2 spray intranasal DAILY albuterol sulfate [ProAir HFA] 90 mcg/actuation HFA aerosol inhaler 2 puff inhalation Q4H PRN (Reason: Shortness Of Breath Or Wheezing) ibuprofen 600 mg tablet 600 mg PO Q6H PRN (Reason: fever) baclofen 10 mg tablet 10 mg PO TID PRN (Reason: muscle spasm) acetaminophen 650 mg tablet extended release 650 mg PO Q8H PRN (Reason: Pain) peg 3350-electrolytes [Golytely] 236-22.74-6.74 -5.86 gram recon soln 240 ml PO Q10M 1 Days Qty: 4000 0RF Rx Instructions: until fecal effluent is clear; do not exceed a total volume of 2,000 mL bisacodyl [Dulcolax (bisacodyl)] 5 mg tablet,delayed release (DR/EC) 10 mg PO BEDTIME 2 Days Qty: 4 0RF furosemide 20 mg tablet 20 mg PO DAILY PRN (Reason: swelling) polyethylene glycol 3350 [Gavilax] 17 gram/dose powder 17 g PO DAILY PRN (Reason: constipation) docusate sodium 100 mg capsule 100 mg PO BID pantoprazole 40 mg tablet,delayed release (DR/EC) 40 mg PO BID Interventions: ED Discharge Assessment Last Done: 09/02/24 03:36 Discharge Date/Time: 09/02/24 03:20 Print Language: [place]
[2024-09-02 03:13] VITALS: BP 112/64; PULSE 95; RESP 18; O2SAT 98
[2024-09-02] MEDS: bisacodyL 5 MG TABLET.DR 10 MG PO (03:13)
[2024-09-02] MEDS: NaPROXEN 500 MG TABLET PO (03:13)
[2024-09-02] MEDS: Milk of Magnesia 30 ML ORAL.SUSP PO (03:13)
[2024-09-02 03:36] VITALS: BP 112/64; PULSE 95; RESP 18; TEMP 36.6; O2SAT 98
== END 2024-09-02 03:20 | disposition home or self-care (01) ==
PROVIDERS: Emergency Provider Internal Medicine; PCP Family Medicine
DX: N39.0 Urinary tract infection, site not specified (principal); B96.20 Unspecified Escherichia coli [E. coli] as the cause of diseases classified elsewhere; K59.09 Other constipation; M54.50 Low back pain, unspecified; Z79.899 Other long term (current) drug therapy
CPT/HCPCS: 36415; 80053; 81001; 85027; 87086; 87088; 87186; 99283

== ENCOUNTER 2024-09-16 17:01 | Outpatient (REF) | payer MEDICAID, SELFPAY | END 2024-09-16 17:02 | disposition home or self-care (01) | LOC: HO.HHCLNP 17:01 | PROVIDERS: Visit Provider Family Medicine | DX: R30.0 Dysuria (principal) | CPT/HCPCS: 87086; 87088; 87186 ==

== ENCOUNTER 2024-09-23 10:45 | Day surgery (SDC) | payer MEDICAID, SELFPAY ==
[2024-09-21 14:34] VITALS: BMI 34.4
[2024-09-23 11:26] VITALS: BMI 34.0
--- NOTE | 2024-09-23 11:30 | HO.ANESPROP2 ---
Documented by User: Teressa Trujillo NP 09/22/24 09:50 HPI - Anesthesia Eval Consult details Narrative: 53yo F for Upper Endoscopy and Colonoscopy PFO repair 09/2023. Follows [facility] with stable at 01/2024 and 1 year routine f/u Hx renal infarct Anesthesia Pre-Procedure Meds Is the patient on any of the following meds?: GLP1/DPP4 PMFSH Active Problems Active Problems: All Active Problems Hepatic steatosis (Acute) Obesity (Acute) Arthritis of right knee (Acute) Knee effusion, right (Acute) Internal derangement of left knee (Acute) Infarction of kidney (Acute) Renal infarct (Acute) Patellofemoral arthritis of right knee (Acute) Family history of polyps in the colon (Acute) Pre-op examination (Acute) Melasma (Acute) Morbid obesity (Acute) Epidermal cyst (Acute) GERD (gastroesophageal reflux disease) (Acute) Past Medical History Medical History Asthma Epidermal cyst GERD (gastroesophageal reflux disease) Family History Family History Father Cancer Mother Colon polyps Sister Colon polyps Maternal Uncle Colon cancer Surgical History Surgical History Hx of heart surgery History of tubal ligation History of tonsillectomy Social History Social History Household Members: Spouse Alcohol intake: former Patient Tobacco Use Status: Never used Tobacco Advance Directives: No Advance Directives Information Provided: Yes service: No Current occupational status: employed 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 Meds Allergies Allergy/AdvReac Type Severity Reaction Status Date / Time No Known Allergies Allergy Verified 09/23/24 10:55 Home Medications ?Medication ?Instructions ?Recorded ?Confirmed ?Last Taken ?Type albuterol sulfate 90 mcg/actuation 2 puff inhalation Q4H PRN 08/22/22 09/23/24 Unknown History aerosol inhaler (ProAir HFA) Shortness Of Breath Or Wheezing cetirizine 10 mg tablet 10 mg PO DAILY 08/22/22 09/23/24 Unknown History cholecalciferol (vitamin D3) 50 50 mcg PO DAILY 08/22/22 09/23/24 Unknown History mcg (2,000 unit) capsule (D3-2000) fluticasone propionate 50 2 spray intranasal DAILY 08/22/22 09/23/24 Unknown History mcg/actuation nasal spray,suspension furosemide 20 mg tablet 20 mg PO DAILY PRN swelling 05/11/24 09/23/24 Unknown History pantoprazole 40 mg tablet,delayed 40 mg PO BID 05/11/24 09/23/24 Unknown History release semaglutide (weight loss) 1 mg/0.5 mg subcut QWEEK 09/22/24 09/22/24 Unknown History mL subcutaneous pen injector (Wegovy) Exam Height,Weight and Vital Signs: Height 5 ft 4 in Weight 90.974 kg Narrative Narrative: ECG 12-Lead ? 07:04:44 Ventricular Rate: 64 BPM Atrial Rate: 64 BPM P-R Interval: 140 ms QRS Duration: 90 ms Q-T Interval: 408 ms QTC Calculation(Bazett): 420 ms P [place]: 24 degrees R [place]: 14 degrees T [place]: 19 degrees Normal sinus rhythm Normal ECG When compared with ECG of 28-JUL-2023 07:23, No significant change was found Confirmed by YOGI ALONZO ([id number]) on 09/15/2023 10:11:58 AM [place]: YOGI ALONZO ? Signed By: Yogi Alonzo MD EchoEchocardiogram - Complete ? 10:00:57 Summary The left ventricular size is normal. Left ventricular wall thickness is normal. The LV systolic function is normal . The left ventricular ejection fraction is 60-65 %. There are no regional wall motion abnormalities. Normal diastolic function. The left atrium is mildly dilated. The interatrial septum appearance is consistent with patent foramen ovale (PFO) closure device presence. An agitated saline study (bubble study) was performed and was normal at rest and with Valsalva. There is no evidence of right to left shunting. There is no evidence of right to left shunting. The aortic valve is trileaflet . The aortic valve appears mildly thickened. The aortic valve leaflet opening is normal. There is no significant aortic regurgitation and aortic stenosis. The mitral valve appears mildly thickened. Mitral leaflet excursion is normal . There is no significant mitral regurgitation or stenosis. The right ventricle is normal in size and function. There is no pericardial effusion. Comparison Comparison is made to the study of September 15, 2023. There is no evidence of right to left shunting after agitated saline study. Assessment and Plan Assessment Anesthesia Assessment: Chart Reviewed Documented by User: Marita Frost, 09/23/24 11:37 HPI - Anesthesia Eval Anesthesia Pre-Procedure Meds Is the patient on any of the following meds?: GLP1/DPP4 PMFSH Past Medical History Medical History Asthma Epidermal cyst GERD (gastroesophageal reflux disease) Family History Family History Father Cancer Mother Colon polyps Sister Colon polyps Maternal Uncle Colon cancer Family history of problems with anesthesia: No Surgical History Surgical History Hx of heart surgery History of tubal ligation History of tonsillectomy History of Problems with Anesthesia: No Social History Social History Household Members: Spouse Alcohol intake: former Patient Tobacco Use Status: Never used Tobacco Advance Directives: No Advance Directives Information Provided: Yes service: No Current occupational status: employed 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 Allergy/AdvReac Type Severity Reaction Status Date / Time No Known Allergies Allergy Verified 09/23/24 10:55 Home Medications ?Medication ?Instructions ?Recorded ?Confirmed ?Last Taken ?Type albuterol sulfate 90 mcg/actuation 2 puff inhalation Q4H PRN 08/22/22 09/23/24 Unknown History aerosol inhaler (ProAir HFA) Shortness Of Breath Or Wheezing cetirizine 10 mg tablet 10 mg PO DAILY 08/22/22 09/23/24 Unknown History cholecalciferol (vitamin D3) 50 50 mcg PO DAILY 08/22/22 09/23/24 Unknown History mcg (2,000 unit) capsule (D3-1999) fluticasone propionate 50 2 spray intranasal DAILY 08/22/22 09/23/24 Unknown History mcg/actuation nasal spray,suspension furosemide 20 mg tablet 20 mg PO DAILY PRN swelling 05/11/24 09/23/24 Unknown History pantoprazole 40 mg tablet,delayed 40 mg PO BID 05/11/24 09/23/24 Unknown History release semaglutide (weight loss) 1 mg/0.5 mg subcut QWEEK 09/22/24 09/22/24 Unknown History mL subcutaneous pen injector (Wegovy) Exam Exam Date and Time: 09/23/24 1130 Air[address] Mallampati Class: III TM Dist: >3cm Neck ROM: Full Loose/Missing/Broken Teeth: No (patient denies any loose or broken teeth) Heart: S1S2 Lungs: CTAB Assessment and Plan Assessment Anesthesia Assessment: Anesthesia Plan Discussed and Chart Reviewed Final Anesthetic Review Family History of Problems with Anesthesia: No History of Problems with Anesthesia: No NPO: Yes ASA Class: II Final Preanesthetic Review: No Changes in Pt Med Stat, Meds/Allgs Chart Reviewed, Consent Obtained/Reviewed and Anes Risks/Benef Reviewed Patient Risk: Low Procedure Risk: Low Anesthetic Plan Anesthetic Plan: MAC: and Agree w/ Assess. and Plan Disposition: Standard PACU
[2024-09-23] MEDS: Lactated Ringers 1,000 ML 100 ML IVCONT (11:41)
[2024-09-23 11:49] VITALS: BP 119/58; PULSE 80; RESP 18; TEMP 36.8; O2SAT 96
--- NOTE | 2024-09-23 12:42 | P.HPSUR_ITS ---
Pre-Procedural Eval Section A - 24 Hr Update-Section A only Date of Service: 09/23/24 Section B - Complete if H&P > 30 days Chief Complaint: Family history of colon polyps, unspecified Details of Present Illness: gerd and dysphagia Relevant Family History (Specify if Yes): Yes Relevant Social History: None Present Medications: see Short Stay Collaborative assessment Medical History: Significant History ( Asthma Epidermal cyst GERD (gastroesophageal reflux disease)) History of Previous Operations: Relevant previous surgery/procedure and date(s) (Hx of heart surgery History of tubal ligation History of tonsillectomy) Allergies: Allergies Allergy/AdvReac Type Severity Reaction Status Date / Time No Known Allergies Allergy Verified 09/23/24 10:55 Review of Systems Sugical H&P ROS: Negative: Constitution, Cardiovascular, Respiratory, Neurological, Psychiatric, Hem-Onc, Allergic/Immunologic, Gastrointestinal, Genitourinary, Musculoskeletal, Integumentary, Endocrine and Eyes/Ears/Nose/Throat Exam Surgical H&P Exam: Normal: HEENT, Normal: Heart, Normal: Lungs, Normal: Extremities, Normal: Abdomen, Normal: Skin and Normal: Neurological Plan Diagnosis/Plan: Unchanged I have reviewed the history and physical and performed a pertinent physical examination on my patient. No changes have occurred unless specified. E GD for gerd and dysphagia Time Spent With Patient Time: Total time managing care of this patient today ____ minutes.
--- NOTE | 2024-09-23 13:04 | P.OPN-COLO_ITS ---
Colonoscopy Operative Note Operative Note Date of Service: 09/23/24 Narrative: Operative Information Procedure Description: EGD, Colonoscopy Indication: GERD, dysphagia, screening Anesthesia: MAC FLEXIBLE TRANSORAL UPPER GASTROINTESTINAL ENDOSCOPY AND COLONOSCOPY PROCEDURE NOTE UPPER ENDOSCOPY Consent: Indications for the procedure and potential complications of bleeding, perforation, reaction to medications and missed diagnosis were discussed with the patient and informed consent was obtained. Instrument: Olympus GIF H 190 J mid size upper endoscope Monitoring: Vital signs and clinical assessment, continuous EKG monitoring, Pulse oximetry, Carbon Dioxide monitoring and blood pressure monitoring were done throughout the procedure. Procedure: The patient was placed in the left lateral decubitis position and pre-procedure medications were administered and a bite block was placed. The endoscope was inserted into the mouth and advanced under direct vision to the third part of duodenum. A careful inspection was made as the upper endoscope was withdrawn including a retroflexed examination of the proximal stomach; Findings and interventions are described below. Findings: Larynx:normal Esophagus: GE junction at 37 cm, diaphragm hiatus at 37 cm, LA grade C erosive esophagitis with erosive linear streaks in distal esophagus and erythema with boggy mucosa at GEJ, balloon dilation done to 20 mm at UES Stomach: Mild erythema. Biopsies were obtained. Grade 2 flap valve on retroflexed examination of the cardia. Duodenum: Normal bulb and descending duodenum, Intervention: Biopsies as noted above, balloon dilation COLONOSCOPY Instrument: Olympus variable stiffness pediatric scope 190L Colonoscopy Monitoring: Vital signs and clinical assessment, continuous EKG monitoring, Pulse oximetry, Carbon Dioxide monitoring and blood pressure monitoring were done throughout the procedure. Colon withdrawal time was 10 minutes. Procedure: The patient was placed in the left lateral decubitis position and pre-procedure medications were administered. After a digital rectal examination of the ano-rectum, the video colonoscope was inserted into the rectum and advanced through the colon to the cecum/TI. The colonoscope was slowly withdrawn in a retrograde panoramic fashion and the colon mucosa was carefully examined including a retroflexed view of the rectum. Findings and interventions are described below. Procedure Difficulty:moderate Findings: Terminal Ileum-normal Granular mucosa with some pigmentation, bx taken from right, left and rectum areas Cecum:normal right sided retroflexion- normal Ascending Colon: normal Transverse Colon -normal Descending Colon:normal Sigmoid Colon: normal Rectum: Retroflexion with small internal hemorrhoids, grade I Anorectum - normal Colon preparation: [place] Bowel Preparation Scale Right colon; 2 Transverse colon: 2 Left colon; 2 (0 = Unprepared colon segment with mucosa not seen due to solid stool that cannot be cleared. 1 = Portion of mucosa of the colon segment seen, but other areas of the colon segment not well seen due to staining, residual stool and/or opaque liquid. 2 = Minor amount of residual staining, small fragments of stool and/or opaque liquid, but mucosa of colon segment seen well. 3 = Entire mucosa of colon segment seen well with no residual staining, small fragments of stool or opaque liquid) Impression and Post Procedure Diagnosis: Endoscopy Findings: erosive esophagitis gastritis Colonoscopy Findings: internal hemorrhoids melanosis coli, granular mucosa Plan: Await Pathology results Repeat Colonoscopy in 5 years due to FH of colon polyps or earlier if clinically indicated High fiber diet leaflet avoid straining at stool, epsom salts and sitz bath, anusol supps or cream GERd precautions, check compliance with PPI, if taking maybe change formulation Above findings were reviewed with the patient and relevant handouts were provided if indicated.
[2024-09-23 13:28] VITALS: BP 108/62; PULSE 86; RESP 16; TEMP 36.1; O2SAT 98
[2024-09-23 13:43] VITALS: BP 110/69; PULSE 86; RESP 16; TEMP 36.3; O2SAT 98
== END 2024-09-23 14:15 | disposition home or self-care (01) ==
PROVIDERS: PCP Family Medicine; Visit Provider Internal Medicine Gastroenterology
PROC: (CPT 45380; principal; 2024-09-23 13:10)
DX: Z12.11 Encounter for screening for malignant neoplasm of colon (principal); Z83.719 Family history of colon polyps, unspecified; K64.0 First degree hemorrhoids; K63.89 Other specified diseases of intestine; R13.10 Dysphagia, unspecified; K21.9 Gastro-esophageal reflux disease without esophagitis; K29.50 Unspecified chronic gastritis without bleeding; K20.80 Other esophagitis without bleeding; K44.9 Diaphragmatic hernia without obstruction or gangrene
CPT/HCPCS: 45380; 43249; 43239; 88305; 88313; 88342; J1100; J1596; J2003; J2704

== ENCOUNTER → 2024-09-23 10:45 | Outpatient (BNV) | payer MEDICAID, SELFPAY | PROVIDERS: PCP Family Medicine; Visit Provider Internal Medicine Gastroenterology | DX: Z12.11 Encounter for screening for malignant neoplasm of colon (principal); K64.0 First degree hemorrhoids; K63.89 Other specified diseases of intestine; R13.10 Dysphagia, unspecified; K21.00 Gastro-esophageal reflux disease with esophagitis, without bleeding; K29.70 Gastritis, unspecified, without bleeding | CPT/HCPCS: 43239; 43249; 45380 ==

== ENCOUNTER 2024-10-07 16:00 | Outpatient (AMB) | payer MEDICAID, SELFPAY ==
--- NOTE | 2024-10-07 16:10 | A.OFFVIS_ITS ---
Vital Signs 10/07/24 16:15 Height 5 ft 4 in Weight 201 lb 15.095 oz BMI 34.7 BP 103/57 L Blood Pressure Location Rt brachial Position Sitting Pulse 69 Intake Visit Reasons: s/p egd/colonoscopy Intake Note: Patient in office today in follow up s/p EGD and colonoscopy. CC: Patient c/o heartburn, acid reflux, epigastric pain, nausea, and vomiting every day. Patient c/o trouble swalling, constipation, and blood with BMs. Portable Pinch Riveter Required: Yes Portable Pinch Riveter Language: Iranian Accompanied by: Daughter Allergies No Known Allergies Allergy (Verified 09/23/24 10:55) HPI HPI s/p egd/colonoscopy: Details: Assessment & Plan (1) Family history of polyps in the colon: Comment: Mother and sister Code(s): Z83.71 - Family history of colonic polyps Category: Medical (2) Morbid obesity: Code(s): E66.01 - Morbid (severe) obesity due to excess calories Category: Medical (3) Hepatic steatosis: Comment: On US with normal LFT's Code(s): K76.0 - Fatty (change of) liver, not elsewhere classified Category: Medical (4) Pre-op examination: Code(s): Z01.818 - Encounter for other preprocedural examination Category: Medical Plan Iranian #[id number] Pt has been lost to follow up since 2021; apparently she has been re-referred for a ?abnormal ultrasound.? With normal parameters on all of her liver blood work, this is likely an US over-read or mild KELLEY. I will add a liver fibrosis panel to be sure. She says she has been told in the past that she has fatty liver. She had to go to [place] for a family emergency and this is why she was never scheduled for a colonoscopy. She is now agreeable to getting back in line for this. This is her first colonoscopy There are no prior problems with anesthesia or sedation. Her asthma is well controlled and she denies any cardiac problems. No ID problems. Her mother and sister had polyps but no known CRC. Orders: Orders Liver Fibrosis Pnl Today Z83.71 - Family history of colonic polyps Colonoscopy - GI Use Only Today Z83.71 - Family history of colonic polyps Medications: New peg 3350-electrolytes 236-22.74-6.74 -5.86 gram (Golytely) until fecal effluent is clear; do not exceed a total volume of 2,000 mL 240 mL PO Q10M 1 day 4,000 mL 0RF Z12.11 - Encounter for screening for malignant neoplasm of colon bisacodyl (Dulcolax (bisacodyl)) 10 mg (2 x 5 mg) PO BEDTIME 2 days 4 tabs 0RF LABS Fibrosis panel not obtained. EGD/ COLONOSCOPY 09/23/24 Findings: Larynx:normal Esophagus: GE junction at 37 cm, diaphragm hiatus at 37 cm, LA grade C erosive esophagitis with erosive linear streaks in distal esophagus and erythema with boggy mucosa at GEJ, balloon dilation done to 20 mm at UES Stomach: Mild erythema. Biopsies were obtained. Grade 2 flap valve on retroflexed examination of the cardia. Duodenum: Normal bulb and descending duodenum, Findings: Terminal Ileum-normal Granular mucosa with some pigmentation, bx taken from right, left and rectum areas Cecum:normal right sided retroflexion- normal Ascending Colon: normal Transverse Colon -normal Descending Colon:normal Sigmoid Colon: normal Rectum: Retroflexion with small internal hemorrhoids, grade I Anorectum - normal Impression and Post Procedure Diagnosis: Endoscopy Findings: erosive esophagitis gastritis Colonoscopy Findings: internal hemorrhoids melanosis coli, granular mucosa Plan: Await Pathology results Repeat Colonoscopy in 5 years due to FH of colon polyps or earlier if clinically indicated High fiber diet leaflet avoid straining at stool, epsom salts and sitz bath, anusol supps or cream GERd precautions, check compliance with PPI, if taking maybe change formulation BIOPSY Received: 09/23/24 ADDENDUM REPORT Addendum Addendum #1 Metaplastic changes are not present, supported by AB/PAS stains (A); Helicobacter organisms are not identified with H. pylori immunostain (A). No change is made to the diagnoses. Electronically Signed By: Leo Bass MD 09/28/24 0756 Diagnosis A. Stomach, biopsy: Antral-type mucosa with mild chronic inactive inflammation. B. Colon, right, biopsy: Melanosis coli; otherwise, colonic mucosa within normal limits. C. Colon, left, biopsy: Melanosis coli; otherwise, colonic mucosa within normal limits. D. Rectum, biopsy: Melanosis coli; otherwise, rectal mucosa within normal limits. Comment: Immunostain for H.pylori on part A will be addended. TODAY'S VISIT Iranian #Margoth Live she is agreeable to a 5 year follow up. The procedure was well tolerated. The results were explained and the patient is agreeable to the follow-up interval as stated. The bowel pattern has returned to normal. Education was provided to tell any 1st degree relatives about their findings to be sure that they are screened by age 45. Educated that they will be put on a recall list when it is time for their repeat scope but should they move out of state or away from the hospital they will need to remember along with their primary to repeat the procedure in a timely fashion to avoid any adverse complications. She says that the dilation helped her swallowing a little bit. Gi zia her erosive esohpagitis, I think we should change away from pantoprazole to aciphex. However, she is recently on Wegovy (3 mos) and this is likely slowing down gastric emptying and is a c/f to the worsening GERD and dysphagia. If not improving consider a barium swallow to eval for HH. ROV 8 weeks [facility] Medical History (Updated 10/07/24 @ 16:53 by MARNI Weston) Pre-op examination Asthma Epidermal cyst GERD (gastroesophageal reflux disease) Surgical History (Updated 10/07/24 @ 16:22 by MONCHO Hernández) History of esophagogastroduodenoscopy (EGD) H/O colonoscopy Hx of heart surgery History of tubal ligation History of tonsillectomy Family History Father Cancer Mother Colon polyps Sister Colon polyps Maternal Uncle Colon cancer Social History Household Members: Spouse Are you a primary medical care evaluation specialist to a significant other at home: No Do you presently have visiting nurse or other home services: No Alcohol intake: former Patient Tobacco Use Status: Never used Tobacco service: No Current occupational status: employed 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 Review of Systems Const Denies fatigue, Denies fever(s), Denies night sweats, Denies poor appetite and Denies weight loss ENT Reports Normal hearing present, Denies dental pain, Reports dysphagia, Denies hearing loss, Denies mouth pain, Denies odynophagia, Denies throat swelling, Denies tongue swelling and Reports other (Dentition adequate) Card Reports no additional complaints Resp Reports no additional complaints GI Details: Denies abdominal pain, Denies melena, Denies bloating, Denies hematochezia, Denies constipation, Denies GI cramping, Reports dysphagia, Denies excessive flatus, Denies early satiety, Reports heartburn, Denies diarrhea, Denies nausea, Denies odynophagia, Denies vomiting and Denies hematemesis Skin/Breast Denies pruritus, Denies lesions, Denies rash and Denies jaundice Neuro Reports Normal hearing present and Denies Abnormal speech present Endo Denies fatigue Aller/Immun Denies throat swelling and Denies tongue swelling Physical Exam Vital Signs: Last Vital Signs Pulse 69 10/07/24 16:15 BP 103/57 L 10/07/24 16:15 BMI result Body Mass Index 34.7 Const General: cooperative, no acute distress, well developed and well groomed Nutritional Appearance: well nourished and obese Orientation/consciousness: oriented to person, oriented to place and oriented to time Limitations: language barrier HEENT Head: Yes normocephalic and Yes atraumatic Eyes General: appearance normal, both eyes and all related structures Pupils: Equal, round and reactive pupils present Neck Neck: Yes normal visual inspection and Yes no lymphadenopathy Thyroid: Thyroid normal Resp Effort & Inspection: normal respiratory effort and able to speak in complete sentences Auscultation: clear to auscultation bilaterally Cardio Rate: regular rate Rhythm: regular rhythm Heart sounds: Normal, physiologic split S2 sound present Peripheral pulses: radial pulses present and posterior tibial pulses present GI Inspection: No distended, No Abdominal panniculus present and Yes obesity Palpation (GI): Soft to palpation, nontender, no guarding, not rigid and No hepatosplenomegaly present Percussion: Yes normal to percussion Auscultation: normal bowel sounds Rectal Exam - Female: deferred Skin General skin exam: no rashes or lesions noted, turgor normal, skin not dry, no jaundice, No spider nevi and no striae Rashes: no rashes Nails: normal Neuro General: oriented to person, oriented to place and oriented to time Cranial nerves: Yes Equal, round and reactive pupils present and Yes Normal hearing present Speech: No Abnormal speech present Extrem General: Yes normal to inspection, No clubbing, No cyanosis and No edema Psych Appearance: grossly normal and well kempt Mental Status: mental status grossly normal Speech and movement: Normal speech and movement present Affect: normal affect Attitude: cooperative Thought process: Normal thought process present and not confabulating Thought content: Normal thought content present Insight: Limited insight present (Psych) Judgement: Limited judgement present (Psych) Assessment & Plan Assessment & Plan (1) Family history of polyps in the colon: Comment: Mother and sister 09/2024 scope= negative study repeat in 5 years Code(s): Z83.71 - Family history of colonic polyps Category: Medical (2) Erosive esophagitis: Code(s): K22.10 - Ulcer of esophagus without bleeding Category: Medical Plan Iranian #Margoth Live she is agreeable to a 5 year follow up. The procedure was well tolerated. The results were explained and the patient is agreeable to the follow-up interval as stated. The bowel pattern has returned to normal. Education was provided to tell any 1st degree relatives about their findings to be sure that they are screened by age 45. Educated that they will be put on a recall list when it is time for their repeat scope but should they move out of state or away from the hospital they will need to remember along with their primary to repeat the procedure in a timely fashion to avoid any adverse complications. She says that the dilation helped her swallowing a little bit. Gi zia her erosive esohpagitis, I think we should change away from pantoprazole to aciphex. However, she is recently on Wegovy (3 mos) and this is likely slowing down gastric emptying and is a c/f to the worsening GERD and dysphagia. If not improving consider a barium swallow to eval for HH. ROV 8 weeks Medications: New rabeprazole (AcipHex) 20 mg PO BID 60 tabs 6RF K22.10 - Ulcer of esophagus without bleeding Coding Level of Care Code Est Pt Level 3 (39949) Diagnoses Family history of polyps in the colon Z83.71 Erosive esophagitis K22.10
[2024-10-07 16:15] VITALS: BP 103/57; PULSE 69; BMI 34.7
== END 2024-10-07 16:52 | disposition home or self-care (01) ==
PROVIDERS: PCP Family Medicine; Visit Provider Nurse Practitioner
DX: K22.10 Ulcer of esophagus without bleeding (principal); Z83.719 Family history of colon polyps, unspecified
CPT/HCPCS: 99213

== ENCOUNTER → 2024-10-07 16:00 | Outpatient (BNVA) | payer MEDICAID, SELFPAY | PROVIDERS: PCP Family Medicine; Visit Provider Nurse Practitioner | DX: K22.10 Ulcer of esophagus without bleeding (principal); Z83.719 Family history of colon polyps, unspecified | CPT/HCPCS: 99212 ==

== ENCOUNTER 2024-10-13 09:42 | Outpatient (AMB) | payer MEDICAID, SELFPAY ==
--- NOTE | 2024-10-13 09:51 | A.OFFVIS_ITS ---
Vital Signs 10/13/24 09:54 Height 5 ft 4 in Weight 201 lb BMI 34.5 Intake Visit Reasons: New prob-Chronic left shoulder pain Intake Note: Jodi is a 54 year old right hand dominant female who presents today for an evaluation of left shoulder pain. Patient reports her pain has been present for about 2 months. Denies injury. Intermittent pain in her shoulder that she de scribes as a sharp pain. She had a cortisone injection about 3-4 years ago that provided her with relief. No other tx. 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 She denies injury. She states the most difficulty with sleeping at night . 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 She states her shoulder pain does not affect hr work. She has had injetions in the past with relief. She states she has done PT for the left shoulder approx 3 years ago, which she states was helpful as well. COUNT INCLUDES THE [facility] Medical History Pre-op examination Asthma Epidermal cyst GERD (gastroesophageal reflux disease) Surgical History History of esophagogastroduodenoscopy (EGD) H/O colonoscopy Hx of heart surgery History of tubal ligation History of tonsillectomy Family History Father Cancer Mother Colon polyps Sister Colon polyps Maternal Uncle Colon cancer Social History Household Members: Spouse Are you a primary daycare director to a significant other at home: No Do you presently have visiting nurse or other home services: No Alcohol intake: former Patient Tobacco Use Status: Never used Tobacco service: No Current occupational status: employed 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 She has full range of motion in all planes. Tenderness over the proximal biceps tendon. She has a positive [place]'s and crepitus with Jacobs testing but no pain. 5/5 rotator cuff strength testing neurovascularly. Office Procedures AMB Joint Injection/Aspiration Joint Injection/Aspiration Primary Site: left shoulder Prep: site was prepped using aseptic technique, ethochloride spray was applied and injection warnings given Injected: 80 mg of, DepoMedrol, with 8 mL of, 1% plain lidocaine and in the subcromial space Approach Used: posterolateral Procedure: The patient tolerated the procedure well and there was some relief with the local anesthesia Coding 17141 - Glenohumeral/Tronchanteric Bursa/Intraarticular Procedure code (CPT) selection complete Results Reviewed Results Reviewed: X-rays of the left shoulder obtained on shows some slight downsloping of the acromion Assessment & Plan Assessment & Plan (1) Tendonitis of left rotator cuff: Code(s): M75.82 - Other shoulder lesions, left shoulder Category: Medical Plan: We discussed options today which include physical therapy to work on range of motion, rotator cuff and periscapular stabilization. We also discussed the benefits of a cortisone injection as she has had 1 in the past with good results. Patient consented to proceed with left shoulder injection today which was tolerated well. I did explain that this can take 6 weeks to take full effect. She will modify activity as needed and use anti-inflammatories as instructed needed. She will follow up with a phone call if symptoms persist or worsen. Orders: Orders PT Evaluation and Treatment Today M75.82 - Other shoulder lesions, left shoulder Coding Level of Care Code Est Pt Level 3 (33063) Complex EM visit Add On G2211 Diagnoses Tendonitis of left rotator cuff M75.82 CPT Codes Coding - Joint 7: 08727 - Glenohumeral/Tronchanteric Bursa/Intraarticular ([id number])
[2024-10-13 09:54] VITALS: BMI 34.5
== END 2024-10-13 10:19 | disposition home or self-care (01) ==
PROVIDERS: PCP Family Medicine; Visit Provider Physician Assistant
DX: M75.82 Other shoulder lesions, left shoulder (principal)
CPT/HCPCS: 20610; 99213

== ENCOUNTER → 2024-10-13 09:42 | Outpatient (BNVA) | payer MEDICAID, SELFPAY | PROVIDERS: PCP Family Medicine; Visit Provider Physician Assistant | DX: M75.82 Other shoulder lesions, left shoulder (principal) | CPT/HCPCS: 20610; 99212; J1010; J2003 ==

== ENCOUNTER 2025-01-03 | Outpatient (REF) | payer MEDICAID, SELFPAY ==
--- OUTSIDE RECORDS SUMMARY | 2025-01-04 13:41 | XMS_ITS | Encounter Summary ---
Author Organization [employer] Address [address] [place] [address] Care Team Providers Care Scientific Research Associate Name Role Phone RadhaKatlyn Primary Care Provider + [phone] Encounter Details Date Type Department Care Team (Late st Contact Info) Description 07/28/2023 Orders Only [facility] [address] [place] [address] Mirna Richardson FNP Social History Tobacco Use Types Packs/Day Years Used Date Smoking Tobacco: Never Passive Smoke Exposure: Never Smokeless Tobacco: Never Alcohol Use Standard Drinks/Week Comments Never 0 (1 standard drink = 0.6 oz pur e alcohol) Depression Answer Date Recorded Patient Health Questionnaire-9 Score 0 06/23/2023 Housing Stability Answer Date Recorded What is your housing situation today? I do not have housing (Staying with others, in a hotel, in a usp, living outside on the street, on a beach, in a car, or in a park 07/14/[address] you li ve. Do you have problems with any of the following? None of the above 07/14/2023 Food Insecurity Answer Date Recorded Within the past 12 months, y ou worried that your food would run out before you got money to buy more: Sometimes True 2022 Within the past 12 months,th e food you bought just didn't last and you didn't have enough money to get more: Sometimes True 07/21/2023 Transportation Answer Date Recorded In the past 12 months, has l ack of transportation kept you from medical appts, meetings, work or from getting things needed for daily living? No 07/21/2023 Utilities Answer Date Recorded In the past 12 months, has t he electric, gas, oil or water company threatened to shut off services in your home? No 07/21/2023 Depression Answer Date Recorded Patient Health Questionnaire-2 Score 0 06/23/2023 Comments Unknown Sex and Gender Information Value Date Recorded Sex Assigned at Female 08/05/2022 10:25 AM EDT Legal Sex Female 10:25 AM EDT Gender Identity Female 08/05/2022 10:25 AM EDT Sexual Orientation Straight 08/05/2022 10 :25 AM EDT documented as of this encounter Plan of Treatment Not on file documented as of this encounter Visit Diagnoses Not on filedocumented in this encounter Additional Health Concerns Assessment Noted Time PHQ-9 Depression Total Score: 0 06/23/20 23 9:10 AM EDT documented as of this encounter Care Teams Scientific Research Associate Relationship Specialty Start Date End Date Katlyn Garcia DO [address] [place] [address] PCP - General Family Medicine 07/17/17 documented as of this encounter
--- OUTSIDE RECORDS SUMMARY | 2025-01-04 13:41 | XMS_ITS | Clinical Summary ---
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 150 g 01/06/20 24 Active baclofen (Lioresal) 10 MG tablet TAKE 1 TABLET BY MOUTH THREE TIMES DAILY NEEDED FOR SPASM 60 tablet 01/06/20 24 Active fluticasone (Flonase) 50 MCG/ACT nasal spray Administer 2 sprays into each nostril in the morning. Shake gently. Before first use, prime pump. After use, clean tip and replace cap. 48 g 01/06/20 24 Active calcium carbonate (Tums) 500 MG chewable tablet Chew 2 tablets (1,000 mg) if needed in the morning, at noon, in the evening, and at bedtime for indigestion or heartburn. 60 tablet 1 01/06/20 24 025 Active cetirizine (ZyrTEC) 10 MG tablet Take 1 tablet (10 mg) by mouth in the morning. 90 tablet 3 01/06/20 24 Active cholecalcifer ol (D3 Super Strength) 50 MCG (2000 UT) capsule Take 1 capsule (50 mcg) by mouth in the morning. 90 capsule 3 01/06/20 24 Active ferrous sulfate 325 (65 Fe) MG tablet Take 1 tablet by mouth Once per day. 12/09/19 24 Active docusate sodium (Colace) 100 MG capsule Take 1 capsule (100 mg) by mouth 2 times daily. 180 capsule 3 02/20/20 24 Active polycarbophil (Fibercon) 625 MG tablet Take 1 tablet (625 mg) by mouth 2 times daily. 180 tablet 3 02/20/20 24 Active sennosides (Senokot) 8.6 MG tablet Take 2 tablets (17.2 mg) by mouth if needed at bedtime for constipation. 60 tablet 3 02/20/20 24 Active polyethylene glycol, PEG, 3350 (MiraLax) 17 GM/SCOOP powder Take 17 g by mouth if needed each day (constipation) . 527 g 3 02/20/20 24 Active pantoprazole (ProtoNix) 40 MG EC tablet TAKE 1 TABLET BY MOUTH BEFORE BREAKFAST AND BEFORE EVENING MEAL. DO NOT CRUSH,CHEW OR SPLIT. 180 tablet 1 08/19/20 24 Active famotidine (Pepcid) 40 MG tablet TAKE 1 TABLET BY MOUTH AT BEDTIME 90 tablet 1 08/19/20 24 Active Tirzepatide-W eight Management (Zepbound) 2.5 MG/0.5ML solution auto-injector Inject 0.5 mL (2.5 mg) under the skin 1 (one) time per week. 2 mL 3 11/05/19 25 Active furosemide (Lasix) 20 MG tabletIndicat ions:Localize d swelling of both lower legs TAKE 1 TABLET BY MOUTH EVERY DAY NEEDED leg swelling 90 tablet 1 12/15/19 25 Active sulfamethoxaz ole-trimethop rim (Bactrim DS) 800-160 MG tablet Take 1 tablet by mouth 2 times daily for 3 days. 6 tablet 01/04/20 25 025 Active ketoconazole (NIZOral) 2 % shampoo Apply topically 2 (two) times a week. 240 mL 2 01/04/20 25 Active clotrimazole (Lotrimin) 1 % cream Apply topically if needed in the morning and at bedtime (rash) for up to 28 days. 60 g 2 01/04/20 25 025 Active furosemide (Lasix) 20 MG tabletIndicat ions:Localize d swelling of both lower legs TAKE 1 TABLET BY MOUTH EVERY DAY NEEDED FOR leg swelling 90 tablet 1 03/19/20 24 025 Discontinued ketoconazole (NIZOral) 2 % shampoo Apply topically 2 (two) times a week. 240 mL 2 11/08/19 25 025 Discontinued(Re order (will not trigger notification to Pharmacy)) Active Problems Problem Noted Date Diagnosed Date Healthcare maintenance 01/06/2024 Assessment & Plan (01/06/2024 2:40 PM EDT): -s/p flu vaccine JUN 2023 -she declines COVID vaccine -s/p Tdap April 2018 -s/p pneumovax April 2018 -s/p shingrix #1, encouraged dose#2 -s/p Hep B vaccine -pap nml/HPV neg March 2018 -mammo BIRADS 07 JUL 2022 -advised contact GI for colonoscopy, contact info given -A1c 4.8%, LDL Jul -STI/HIV screen negative JUL 2023 -BP nml -s/p optho eval FEBRUARY 2023 at [facility] for f/u in 2-years Fatty liver 12/29/2023 Assessment & Plan (01/06/2024 2:37 PM EDT): -abd US nml with no focal lesion AUG 2022 -AFP and LFTs nml Jul 2023 -Hep A immune -s/p Hep B vaccine Abnormal uterine bleeding (AUB) 12/29/2023 Assessment & Plan (01/06/2024 2:33 PM EDT): -pelvic US with abnormal endometrial thickening and 4cm L-ovarian cyst JUL 2023, referred for repeat [place] [facility] [place]d/pelvis w/ uterine fibroids, unremarkable adnexa OCT 2022 -re-referred for [facility]PORATE [employer]CHNICAL RECRUITER eval at [facility] Melasma 04/09/2023 Constipation 04/09/2023 Family history of colon cancer 04/09/2023 Patellofemoral arthritis of right knee 3 Status post patent foramen ovale closure 023 Overview (04/09/2023): Genetic condition Pending surgery unknown date. Assessment & Plan (01/06/2024 2:35 PM EDT): S/P PFO closure SEP 2023 -she needs abx prophylaxis x 1 year -f/u with cards as scheduled, due SEP 2024 Renal infarction 10/31/2022 Allergic rhinitis 10/15/2022 BMI 36.0-36.9,adult 10/15/2022 Chronic GERD 04/16/2018 Assessment & Plan (01/06/2024 2:38 PM EDT): Sx uncontrolled -BA swallow with HH and GERD JUN 2020 -increase prilosec to BID as previously advised -trial tums prn -will refer to GI if no improvement Mild intermittent asthma 04/16/2018 Assessment & Plan (01/06/2024 2:38 PM EDT): With allergic rhinitis, controlled -cont zyrtec and flonase prn -cont albuterol prn Vitamin D deficiency 04/16/2018 Resolved Problems Problem Noted Date Diagnosed Date Resolved Date Asthma 06/23/2023 12/29/2023 Epidermal cyst 04/09/2023 12/29/2023 Knee sprain 04/09/2023 05/19/2024 Pain of upper extremity 04/09/202312/05 Palpitations 10/31/2022 12/29/2023 Chloasma 05/01/2018 05/19/2024 Encounters Date Type Department Care Team Description 01/03/2025 10:15 AM EDT Office Visit [facility] [address] [place] [address] Katlyn Garcia DO Acute UTI (Primary Dx); Varicose veins with pain; BMI 36.0-36.9,adult 01/03/2025 Telephone [facility] [address], [place] [phone] Katlyn Garcia DO 01/03/2025 Travel 12/17/2024 Population Health Risk Score [facility] () Department [address] [place] [address], [place] [phone] Provider, Population Health Generic 12/14/2024 Refill [facility] [address] [place] [phone] Katlyn Garcia DO Localized swelling of both lower legs 11/05/2024 12:00 PM EST Office Visit [facility] [address] [place] [address] Katlyn Garcia DO Hyperpigmentation of skin (Primary Dx); BMI 34.0-34.9,adult 11/05/2024 Travel 11/02/[address] [address] Jailene Allen, JERRELL Sick on site 11/01/[address] [phone] Katlyn Garcia DO Nurse Triage 10/28/[address] [phone] Katlyn Garcia DO Medication Question from Last 3 Months Immunizations Name Administration Dates Next Due Hep B, adult 07/08/2022,03/21/2021,09/10/2019 Influenza injectable quadriv alent IIV4 with preservative 07/23/2018 Influenza injectable quadriv alent preservative free 06/23/2023,06/24/2022,08/07/2020,09/10 Influenza, IIV3, injectable 09/05/2016, 6 Influenza, seasonal, injecta ble, preservative free 07/30/2024 Pfizer Covid-19 Vaccine 12+ 11/13/2021 Pfizer Covid-19 Vaccine 12+ Bivalent 11/05/2022 Pneumococcal Polysaccharide PPSV23 04/16/2018 Tdap 04/16/2018 Zoster, Recombinant 06/17/2024,11/11/2022 Family History Medical History Relation Name Comments Diabetes Brother Cancer Father Alzheimer's disease Mother Atrial fibrillation Mother Diabetes Mother Hypertension Mother Stroke Mother Thyroid disease Mother Colon cancer Mother's Brother Diabetes Sister Relation Name Status Comments Brother Father Mother Mother's Brother Sister Social History Tobacco Use Types Packs/Day Years Used Date Smoking Tobacco: Never Passive Smoke Exposure: Never Smokeless Tobacco: Never Tobacco Cessation:Counseling Given: Not Answered Alcohol Use Standard Drinks/Week Comments Never 0 (1 standard drink = 0.6 oz pur e alcohol) Depression Answer Date Recorded Patient Health Questionnaire-9 Score 0 11/05/2024 Patient Health Questionnaire-9 Score 0 11/05/2024 Last PHQ-9: Questionnaire Data Not on file 0 11/05/2024 Housing Stability Answer Date Recorded What is your housing situation today? I have destini rutledge 02/20/[address] you li ve. Do you have problems with any of the following? None of the above 02/20/2024 Food Insecurity Answer Date Recorded Within the past 12 months, y ou worried that your food would run out before you got money to buy more: Never True 02/20/2024 Within the past 12 months,th e food you bought just didn't last and you didn't have enough money to get more: Never True Transportation Answer Date Recorded In the past 12 months, has l ack of transportation kept you from medical appts, meetings, work or from getting things needed for daily living? No 02/20/2024 Utilities Answer Date Recorded In the past 12 months, has t he electric, gas, oil or water company threatened to shut off services in your home? No 02/20/2024 Depression Answer Date Recorded Patient Health Questionnaire-2 Score 0 11/05/2024 Internet Access Answer Date Recorded Internet Access Q1 Yes 01/03/2025 Internet Access Q2 Not on file 01/03/2025 Comments No Sex and Gender Information Value Date Recorded Sex Assigned at Female 08/05/2022 10:25 AM EDT Legal Sex Female 10:25 AM EDT Gender Identity Female 08/05/2022 10:25 AM EDT Sexual Orientation Straight 08/05/2022 10 :25 AM EDT Last Filed Vital Signs Vital Sign Reading Time Taken Comments Blood Pressure 130/70 01/03/2025 11:02 AM EDT Pulse 75 01/03/2025 11:02 AM EDT Temperature 36.3 ??C (97.3 ??F) 01/03/2025 11:02 AM E DT Respiratory Rate 20 01/03/2025 11:02 AM EDT Oxygen Saturation 98% 01/03/2025 11:02 AM EDT Inhaled Oxygen Concentration - - Weight 97.5 kg (215 lb) 01/03/2025 11:02 AM EDT Height 162.6 cm (5' 4 ) 01/03/2025 11:02 AM EDT Body Mass Index 36.9 01/03/2025 11:02 AM EDT Plan of Treatment Health Maintenance Due Date Last Done Comments CT Colonography 1972 Colonoscopy 1972 Colorectal Cancer Screening 1972 FIT DNA/Cologuard 1972 FIT 1972 FOBT 1972 Sigmoidoscopy 1972 Alcohol/Substance Use Screening 1984 Family Planning (PISQ) 1987 Hepatitis A Vaccines (1 of 2 - Risk 2-dose series) 1991 Pneumococcal Vaccine: 50+ Years (2 of 2 - PCV) 04/16/2019 04/16/2018 COVID-19 Vaccine ( season) 2024 11/05/2022, 12/05/2021, 11/13/2021 Pap Smear 10/25/2025 10/25/2022 Depression Screening 11/05/2025 11/05/2024, 11/05/19 SDOH Screening 01/03/2026 01/03/2025 Tobacco Screening 01/03/2026 01/03/2025 Mammogram 03/17/2026 03/17/2024, 0 12/2021, 04/12/2021, Additional history exists Cervical Cancer Screening 10/25/2027 HPV/Cotest 10/25/2027 10/25/2022, 04/03/2018 DTaP/Tdap/Td Vaccines (2 - Td or Tdap) 04/16/2028 04/16/2018 Lipid Panel 07/27/2029 07/27/2024, 100 12/2022, 07/01/2022, Additional history exists RSV Patients and Patients Aged 60 years or older (1 - 1-dose 75+ series) 2047 Hepatitis B Vaccines Completed 07/08/2022, 03/21/2021, 09/10/2019 Zoster Vaccines Completed 06/17/2024, 11/11/2022 HIV Screening Completed 07/27/2024, 12/2022, 07/01/2022, Additional history exists Hepatitis C Screening Completed 07/27/2024 , 07/08/2023, 07/01/2022, Additional history exists Influenza Vaccine Completed 07/30/2024, , 06/24/2022, Additional history exists HIB Vaccines Aged Out No longer eligi ble based on patient's age to complete this topic HPV Vaccines Aged Out No longer eligi ble based on patient's age to complete this topic IPV Vaccines Aged Out No longer eligi ble based on patient's age to complete this topic Meningococcal Vaccine Aged Out No [facility] a[facility] eligible based on patient's age to complete this topic RSV under 20 months Aged Out No longe r eligible based on patient's age to complete this topic Rotavirus Vaccines Aged Out No longer eligible based on patient's age to complete this topic Procedures Procedure Name Priority Date/Time Associated Diagnosis Comments POCT URINALYSIS DIPSTICK Routine 01/03/2025 1:43 PM EDT Acute UTI HEPATITIS C AB W/REFL TO HCV RNA, QN, PCR Routine 07/27/2024 9:00 AM EDT Abnormal uterine bleeding (AUB) PFO (patent foramen ovale) Fatty liver Chronic GERD Chronic constipation Mild intermittent asthma without complication Anemia, unspecified type Acute right-sided low back pain without sciatica Acute left otitis media Raynaud's phenomenon without gangrene Healthcare maintenance Class 1 obesity due to excess calories with body mass index (BMI) of 33.0 to 33.9 in adult, unspecified whether serious comorbidity present Epigastric pain HIV 1/2 ANTIGEN/ANTIBODY, FOURTH GENERATION W/RFL Routine 07/27/2024 9:00 AM EDT Abnormal uterine bleeding (AUB) PFO (patent foramen ovale) Fatty liver Chronic GERD Chronic constipation Mild intermittent asthma without complication Anemia, unspecified type Acute right-sided low back pain without sciatica Acute left otitis media Raynaud's phenomenon without gangrene Healthcare maintenance Class 1 obesity due to excess calories with body mass index (BMI) of 33.0 to 33.9 in adult, unspecified whether serious comorbidity present Epigastric pain LIPID PANEL, STANDARD Routine 07/27/2024 9:00 AM EDT Abnormal uterine bleeding (AUB) PFO (patent foramen ovale) Fatty liver Chronic GERD Chronic constipation Mild intermittent asthma without complication Anemia, unspecified type Acute right-sided low back pain without sciatica Acute left otitis media Raynaud's phenomenon without gangrene Healthcare maintenance Class 1 obesity due to excess calories with body mass index (BMI) of 33.0 to 33.9 in adult, unspecified whether serious comorbidity present Epigastric pain BI MAMMOGRAM SCREENING TOMOSYNTHESIS BILATERAL Routine 03/17/2024 10:00 AM EDT Breast cancer screening by mammogram THINPREP PAP, HPV MRNA E6/E7 RFX HPV 16,18/45, CHLAMYDIA/N.GONORRHOE AE Routine 10/25/2022 11:10 AM EST Encounter for annual routine gynecological examination from Last 3 Months or Most Recently Relevant to Health Maintenance Results * (ABNORMAL) POCT Urinalysis (01/03/2025 1:43 PM EDT) Color, UA Yellow Clarity, UA Clear Glucose, UA Negative Bilirubin, UA Negative Ketones, UA Negative Spec Grav, UA 1.020 Blood, UA Positive(A) Negative, None Detected Comment:Small pH, UA 5.5 Protein, UA Negative Urobilinogen, UA 0.2 Leukocytes, UA Negative Negative, Rare, Trace Nitrite, UA Positive(A) Negative, None Detected QC Media Lot # [id number] Lot# Expiration Date Urine 01/03/2025 1:43 PM EDT Katlyn Garcia DO POINT OF CARE TEST ENTER/PAUL T ORDERABLES Final Result * Hepatitis C Antibody with Reflex to HCV, RNA, Quantitative, Real-Time PCR (07/27/2024 9:00 AM EDT) Hepatitis C Antibody Nonreactive Nonreactive [facility] Comment:Antibodies to HCV no t detected; does not exclude early acuteHCV infection. Blood Venous blood specimen / Unknown 07/27/2024 9:00 AM EDT 07/27/2024 11:04 AM EDT Katlyn Radha LAB BLOOD ORDERABLES Final R esult Performing Organization Address City/[facility]/ZIP Co de Phone Number [facility] [address] [place] [address] [phone] * HIV-1/2 Antigen and Antibodies, Fourth Generation, with Reflexes (07/27/2024 9:00 AM EDT) Pathologist [facility] HIV AB/AG Nonreactive Nonreactive [facility] Comment:HIV-1 p24 Ag and/or HIV-1/HIV-2 Ab not detected.A test result that is nonreactive does not exclude thepossibility of exposure to or infection with HIV-1 and/orHIV-2. Nonreactive results in this assay for individualswith prior exposure to HIV-1 and/or HIV-2 may be due toantigen and antibody levels that are below the limit ofdetection of this assay.The GeoTrac HIV Ag/Ab Combo assay result andsupplemental assay results should be interpreted inconjunction with the patient's clinical presentation,history and other laboratory results. If the results areinconsistent with clinical evidence, additional testing issuggested to confirm the result. Blood Venous blood specimen / Unknown 07/27/2024 9:00 AM EDT 07/27/2024 11:04 AM EDT Katlyn Radha DO LAB BLOOD ORDERABLES Final R esult Performing Organization Address [facility]/ZIP Co de Phone Number [facility] [address] [place] [address] [phone] * (ABNORMAL) Lipid Panel, Standard (07/27/2024 9:00 AM EDT) Triglycerides 233(H) <150 mg/dL [facility] Comment:Desirable Triglyceri de: less than 150 mg/dLBorderline High Triglyceride 150-199 mg/dLHigh Triglyceride: 200-499 mg/dLVery High Triglyceride: greater than or equal to 5OO mg/dL Cholesterol 190 <200 mg/dL [facility] Comment:Desirable Cholestero l: less than 200 mg/dLBorderline High Cholesterol: 200-239 mg/dLHigh Cholesterol: greater than 239 mg/dL LDL Cholesterol Calculated 104(H) <100 mg/dL [facility] Comment:Desirable LDL: less than 100 mg/dLNear Optimal/Above Optimal LDL: 110- 129 mg/dLBorderline High LDL: 130-159 mg/dLHigh LDL: 160-189 mg/dLVery High LDL: greater than or equal to 190 mg/dL HDL Cholesterol 40(L) >40 mg/dL [facility] Comment:Desirable HDL: great er than 40 mg/dL Note: This HDL assay may give artificially low results in patients with liver disease. Blood Venous blood specimen / Unknown 07/27/2024 9:00 AM EDT 07/27/2024 11:09 AM EDT us Katlyn Garcia DO LAB BLOOD ORDERABLES Final R esult [facility] [address] [place] [address] [phone] * BI Mammogram Screening Tomosynthesis Bilateral (03/17/2024 10:00 AM EDT) Anatomical Region Laterality Modality Breast Bilateral Mammography 03/17/2024 10:0 0 AM EDT Narrative 04/16/2024 8:07 AM EDT ? [facility] ?[address] [place] [address] ?[place] [address] ? Mammography Report ? Signed ? Patient: Sheth Dwight,Jodi ?MR#: ?? [id number] ? : 1970 ?Acct:[id number] ? Age/Sex: 53 / F ?ADM Date: 06/12/24 ? Loc: HO.US ? Attending Dr: Katlyn Garcia DO ? Ordering Physician: Katlyn Garcia DO ?Results: 2B ?? enign Findings ? Date of Service: 03/17/24 ?Follow Up: 1 Year From Orig ?? inal Mammogram ? Procedure(s): MM tomosynthesis screening BI ?? Accession Number(s): [id number] ? cc: Katlyn Garcia DO ? EXAMINATION: ?? MM SCREENING DIGITAL BREAST TOMOSYNTHESIS, BILATERAL ? CLINICAL INFORMATION: ? Screening. Asymptomatic. ? COMPARISON: ?? Mammography: This study is compared with prior exams dating back to ?? 2019. ? TECHNIQUE: ?? Digital breast tomosynthesis is performed in both the craniocaudal and ?? mediolateral oblique views along with computer-aided detection (CAD). ?? Synthesized 2D images are generated from the tomosynthesis. ? FINDINGS: ?? There are scattered areas of fibroglandular density (ACR BI-RADS breast ?? composition Category b). ? There are no significant masses, abnormal calcifications, or other ?? abnormalities. ?? Scattered, small calcifications are present throughout each breast ?? which are unchanged and benign. ? MM/MM tomosynthesis screening BI ?? IMPRESSION: ?? No mammographic evidence of malignancy. ? ASSESSMENT: ? BI-RADS BI-RADS 2 - Benign Findings ? RECOMMENDATION: ?? Routine annual mammography screening. ? 1 year F/U ? This examination should not preclude the clinical evaluation of a ?? suspicious palpable abnormality. ? This patient's information was entered into a reminder system with a ?? target due date for their next mammogram. ? Dictated By: ?Diane Booker MD ? Signed By: ?<Electronically signed by Diane Booker MD in OV> ? 04/16/24 0803 ? DD/ 1000 ? TD/TT: ? Photoflash Powder Mixer: ? Procedure Note Donpjinterpreter, Image - 04/16/[address] [address] Mammography Report Signed Patient: Jodi MorrisMR#: [id number] : 1970Acct:[id number] Age/Sex: 53 / FADM Date: 03/17/24 Loc: HO. Attending Dr: Katlyn Garcia DO Ordering Physician: Katlyn Garciaults: 2B enign Findings Date of Service: 03/17/24Follow Up: 1 Year From Orig inal Mammogram Procedure(s): MM tomosynthesis screening BI Accession Number(s): [id number] cc: Katlyn Garcia DO EXAMINATION: MM SCREENING DIGITAL BREAST TOMOSYNTHESIS, BILATERAL CLINICAL INFORMATION: Screening. Asymptomatic. COMPARISON: Mammography: This study is compared with prior exams dating back to 2019. TECHNIQUE: Digital breast tomosynthesis is performed in both the craniocaudal and mediolateral oblique views along with computer-aided detection (CAD). Synthesized 2D images are generated from the tomosynthesis. FINDINGS: There are scattered areas of fibroglandular density (ACR BI-RADS breast composition Category b). There are no significant masses, abnormal calcifications, or other abnormalities. Scattered, small calcifications are present throughout each breast which are unchanged and benign. MM/MM tomosynthesis screening BI IMPRESSION: No mammographic evidence of malignancy. ASSESSMENT: BI-RADS BI-RADS 2 - Benign Findings RECOMMENDATION: Routine annual mammography screening. 1 year F/U This examination should not preclude the clinical evaluation of a suspicious palpable abnormality. This patient's information was entered into a reminder system with a target due date for their next mammogram. Dictated By: Diane Booker MD Signed By: <Electronically signed by Diane Booker MD in OV> 04/16/24 0803 DD/ 1000 TD/TT: Photoflash Powder Mixer: us Katlyn Radha DO IMG BI PROCEDURES Final Resu lt * Thinprep PAP, HPV mRNA E6/E7 RFX HPV 16,18/45, Chlamydia/N. Gonorrhoeae (10/25/2022 11:10 AM EST) Clinical Information: SCREENING PAP Anpro21 LMP: 20,221,222 [employer] Prev. PAP: NONE GIVEN [employer] Prev. BX: YES Anpro21 SOURCE: None given Anpro21 Statement Of Adequacy: Anpro21 Comment: Satisfactory for evaluation. Endocervical/transformation zone component present. Interpretation/Re sult: Negative for intraepithelial lesion or malignancy. [employer] Power Engineer: [facility] Comment: ED, CT(ASCP) CT screening location: [place] [address] (Always Message) [employer] Comment: EXPLANATORY NOTE: The Pap is a screening test for cervical cancer. It is not a diagnostic test and is subject to false negative and false positive results. It is most reliable when a satisfactory sample, regularly obtained, is submitted with relevant clinical findings and history, and when the Pap result is evaluated along with historic and current clinical information. HPV nRNA E6/E7 Not Detected Not Detected Anpro21 Comment: Methodology: Therapy Director-Mediated Amplification This assay detects E6/E7 viral messenger RNA (mRNA) from 14 high-risk HPV types (16,18,31,33,35,39,45,51,52,56,58,59,66,68). Cervical sources are required for HPV testing. If a vaginal source from a patient who has had a total hysterectomy with removal of cervix was submitted, please contact the testing laboratory for alternative testing options. For additional information, please refer to http://[employer] [place].Apse/faq/AMH937b7 (This link if provided for information/ educational purposes only.) Chlamydia trachomatis RNA, TMA, Urogenital NOT DETECTED NOT DETECTED [employer] [place] [employer] Neisseria gonorrhoeae RNA, TMA, Urogenital NOT DETECTED NOT DETECTED [employer] [place] [employer] (Always Message) [facility] [place] [employer] Comment: The analytical performance characteristics of this assay, when used to test SurePath(TM) specimens have been determined by [employer]. The modifications have not been cleared or approved by the FDA. This assay has been validated pursuant to the CLIA regulations and is used for clinical purposes. 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
--- OUTSIDE RECORDS SUMMARY | 2025-01-04 13:41 | XMS_ITS | Encounter Summary ---
Author Organization [employer] Address [address] [facility] 7t [place] [address] Care Team Providers Care Intern Brand Name Role Phone Katlyn Garcia DO Primary Care Provider [phone] Encounter Details Date Type Department Care Team ([facility] st Contact Info) Description 01/03/2025 Telephone [facility] MEDICINE [address] [place], [place] [phone] Katlyn Garcia DO [address] [place], [place] [phone] Social History Tobacco Use Types Packs/Day Years [...] AM EDT documented as of this encounter Miscellaneous Notes * Telephone Encounter - Katlyn Garcia DO - 01/03/2025 1:39 PM EDT Please get copy of pt's PA denial for [employer]ep[employer]. Thank you. documented in this encounter Plan of Treatment Not on file documented as of this encounter Visit Diagnoses Not on filedocumented in this encounter Additional Health Concerns Assessment Noted Time PHQ-9 Depression Total Score: 0 11/05/19 25 11:56 AM EST documented as of this encounter Care Teams Intern Brand Relationship Specialty Start Date End Date Katlyn Garcia DO [address] [place] [id number] PCP - General Family Medicine 07/17/17 documented as of this encounter
--- OUTSIDE RECORDS SUMMARY | 2025-01-04 13:41 | XMS_ITS | Encounter Summary ---
Author Organization [employer] Address [address] [facility] 7t [place] [address] Care Team Providers Care Wigs Salesperson Name Role Phone RadhaKatlyn Primary Care Provider [phone] Encounter Details Date Type Department Care Team (Latest Contact Info) Description 01/03/2025 Travel Social History Tobacco Use Types Packs/Day Years [...] documented as of this encounter Care Teams Wigs Salesperson Relationship Specialty Start Date End Date Katlyn Garcia DO [address] [place] [id number] PCP - General Family Medicine 07/17/17 documented as of this encounter
--- OUTSIDE RECORDS SUMMARY | 2025-01-04 13:41 | XMS_ITS | Encounter Summary ---
Author Organization [employer] [facility] Address [address] [place] [address] 7t [place] [address] Care Team Providers Care Metal And Plastic Heater Name Role Phone Katlyn Garcia DO Primary Care Provider [phone] Reason for Referral * Consultation (Routine) - Pending Review Specialty Diagnoses / Procedures Referred By Kamala rabago Referred To Contact Vascular Surgery Diagnoses Varicose veins with pain Katlyn Garcia DO [address] [place] [address] Phone: tel: fax: Referral ID Status Reason Start Date Expiration Date Visits Requested Visits Authorized [id number] Pending Review Specialty Services Required 01/03/2025 01/03/2026 1 1 Encounter Details Date Type Department Care Team (Late st Contact Info) Description 01/03/2025 10:15 AM EDT Office Visit [facility] MEDICINE [address] [place] [address] Katlyn Garcia DO [address] [place] [address] Acute UTI (Primary Dx); Varicose veins with pain; BMI 36.0-36.9,adult Social History Tobacco Use Types Packs/Day Years [...] AM EDT documented as of this encounter Last Filed Vital Signs Vital Sign Reading [...] Mass Index 36.9 01/03/2025 11:02 AM EDT documented in this encounter Plan of Treatment Scheduled Orders Name Type Priority Associated Diagnoses Orde r Schedule Culture, Urine, Routine Microbiology Routine Acute UTI Expected: 01/03/2025 (Approximate), Expires: 01/03/2026 Scheduled Referrals Name Type Priority Associated Diagnoses Orde r Schedule Referral to Vascular Surgery Outpatient Referral Routine Varicose veins with pain Expected: 01/03/2025 (Approximate), Expires: 01/03/2026 documented as of this encounter Procedures Procedure Name Priority Date/Time Associated Diagnosis Comments POCT URINALYSIS DIPSTICK Routine 01/03/2025 1:43 PM EDT Acute UTI documented in this encounter Results * (ABNORMAL) POCT Urinalysis (01/03/2025 1:43 [...] CARE TEST ENTER/PAUL T ORDERABLES Final Result documented in this encounter Visit Diagnoses Diagnosis Acute UTI- Primary Urinary tract infection, site not specified Varicose veins with pain BMI 36.0-36.9,adult documented in this encounter Additional Health Concerns Assessment Noted Time PHQ-9 Depression Total Score: 0 11/05/19 25 11:56 AM EST documented as of this encounter Care Teams Metal And Plastic Heater Relationship Specialty Start Date End Date Katlyn Garcia DO [address] [place] [address] PCP - General Family Medicine 07/17/17 documented as of this encounter
== END 2025-01-03 00:01 | disposition home or self-care (01) ==
LOC: HO.HHCLNP
PROVIDERS: Visit Provider Family Medicine
DX: N39.0 Urinary tract infection, site not specified (principal)
CPT/HCPCS: 87086; 87088; 87186

== ENCOUNTER 2025-02-03 14:50 | Outpatient (AMB) | payer MEDICAID, SELFPAY ==
--- NOTE | 2025-02-03 14:57 | A.OFFVIS_ITS ---
Vital Signs 02/03/25 14:58 Height 5 ft 4 in Weight 201 lb BMI 34.5 BP 114/66 Blood Pressure Location Rt brachial Position Sitting Pulse 66 Pulse Source Pulse Oximeter Pulse Oximetry (%) 98 Oxygen Delivery Method Room Air Intake Visit Reasons: follow up erosive esophagits Intake Note: ESTABLISHED PATIENT for mgmt of dysphagia and erosive esophagitis. NYA 10/07/19 25 Chief Complaint; Pt denies any sx or concerns at this time. Pt is doing well with her current medication at this time. Quality Assurance Assessor Required: Yes Quality Assurance Assessor Services: Quality Assurance Assessor Present Quality Assurance Assessor Name: [id number] [facility] Information Interpreted: clinical only Accompanied by: Spouse Allergies No Known Allergies Allergy (Verified 02/03/25 15:04) Medication List - Last Reconciled 02/03/25 by MARNI Weston albuterol sulfate 90 mcg/actuation (ProAir HFA) 2 puffs inhalation Q4H PRN bisacodyl 10 mg PO BEDTIME cetirizine 10 mg PO DAILY cholecalciferol (vitamin D3) (D3-2000) 50 mcg PO DAILY ferrous sulfate 325 mg PO DAILY fluticasone propionate 50 mcg/actuation 2 sprays intranasal DAILY furosemide 20 mg PO DAILY PRN rabeprazole (AcipHex) 20 mg PO BID HPI HPI follow up erosive esophagits: Details: Assessment & Plan (1) Family history of polyps in the colon: Comment: Mother and sister 09/2024 scope= negative study repeat in 5 years Code(s): Z83.71 - Family history of colonic polyps Category: Medical (2) Erosive esophagitis: Code(s): K22.10 - Ulcer of esophagus without bleeding Category: Medical Plan [place] #Margoth Live she is agreeable to a 5 year follow up. The procedure was well tolerated. The results were explained and the patient is agreeable to the follow-up interval as stated. The bowel pattern has returned to normal. Education was provided to tell any 1st degree relatives about their findings to be sure that they are screened by age 45. Educated that they will be put on a recall list when it is time for their repeat scope but should they move out of state or away from the hospital they will need to remember along with their primary to repeat the proce dure in a timely fashion to avoid any adverse complications. She says that the dilation helped her swallowing a little bit. Gi zia her erosive esohpagitis, I think we should change away from pantoprazole to aciphex. However, she is recently on Wegovy (3 mos) and this is likely slowing down gastric emptying and is a c/f to the worsening GERD and dysphagia. If not improving consider a barium swallow to eval for HH. ROV 8 weeks Medications: New rabeprazole (AcipHex) 20 mg PO BID 60 tabs 6RF K22.10 - Ulcer of esophagus without bleeding TODAY'S VISIT [place] #Biju Lott She was in [place] for a week and I ate pork and she was burping like rotten eggs. This persisted for a week. HOwever, this has resolved since then and she is taking the Aciphex bid and she feels it is working well. She is using what sounds like bisacodyl she buys at [employer]. ROV 6 mos. She is no longer taking Wegovy. [facility] Medical History Pre-op examination Asthma Epidermal cyst GERD (gastroesophageal reflux disease) Surgical History History of esophagogastroduodenoscopy (EGD) H/O colonoscopy Hx of heart surgery History of tubal ligation History of tonsillectomy Family History Father Cancer Mother Colon polyps Sister Colon polyps Maternal Uncle Colon cancer Social History Household Members: Spouse Are you a primary care support representative to a significant other at home: No Do you presently have visiting nurse or other home services: No Alcohol intake: former Patient Tobacco Use Status: Never used Tobacco service: No Current occupational status: employed 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 Review of Systems Const Denies fatigue, Denies fever(s), Denies night sweats, Denies poor appetite and Denies weight loss ENT Reports Normal hearing present, Denies dental pain, Denies dysphagia, Denies hearing loss, Denies mouth pain, Denies odynophagia, Denies throat swelling, Denies tongue swelling and Reports other (Dentition adequate) Card Reports no additional complaints Resp Reports no additional complaints GI Details: Denies abdominal pain, Denies melena, Denies bloating, Denies hematochezia, Reports constipation, Denies GI cramping, Denies dysphagia, Denies excessive flatus, Denies early satiety, Reports heartburn, Denies diarrhea, Denies nausea, Denies odynophagia, Denies vomiting and Denies hematemesis Skin/Breast Denies pruritus, Denies lesions, Denies rash and Denies jaundice Neuro Reports Normal hearing present and Denies Abnormal speech present Endo Denies fatigue Aller/Immun Denies throat swelling and Denies tongue swelling Physical Exam Const General: cooperative, no acute distress, well developed and well groomed Nutritional Appearance: well nourished and obese Orientation/consciousness: oriented to person, oriented to place and oriented to time Limitations: language barrier HEENT Head: Yes normocephalic and Yes atraumatic Eyes General: appearance normal, both eyes and all related structures Pupils: Equal, round and reactive pupils present Neck Neck: Yes normal visual inspection and Yes no lymphadenopathy Thyroid: Thyroid normal Resp Effort & Inspection: normal respiratory effort and able to speak in complete sentences Auscultation: clear to auscultation bilaterally Cardio Rate: regular rate Rhythm: regular rhythm Heart sounds: Normal, physiologic split S2 sound present Peripheral pulses: radial pulses present and posterior tibial pulses present GI Inspection: No distended, Yes Abdominal panniculus present and Yes obesity Palpation (GI): Soft to palpation, nontender, no guarding, not rigid and No hepatosplenomegaly present Percussion: Yes normal to percussion Auscultation: normal bowel sounds Rectal Exam - Female: deferred Skin General skin exam: no rashes or lesions noted, turgor normal, skin not dry, no jaundice, No spider nevi and no striae Rashes: no rashes Nails: normal Neuro General: oriented to person, oriented to place and oriented to time Cranial nerves: Yes Equal, round and reactive pupils present and Yes Normal hearing present Speech: No Abnormal speech present Extrem General: Yes normal to inspection, No clubbing, No cyanosis and No edema Psych Appearance: grossly normal and well kempt Mental Status: mental status grossly normal Speech and movement: Normal speech and movement present Affect: normal affect Attitude: cooperative Thought process: Normal thought process present and not confabulating Thought content: Normal thought content present Insight: Fair insight present (Psych) Judgement: Fair judgement present (Psych) Assessment & Plan Assessment & Plan (1) Erosive esophagitis: Code(s): K22.10 - Ulcer of esophagus without bleeding Category: Medical (2) GERD (gastroesophageal reflux disease): Code(s): K21.9 - Gastro-esophageal reflux disease without esophagitis Category: Medical (3) Morbid obesity: Code(s): E66.01 - Morbid (severe) obesity due to excess calories Category: Medical Plan [place] [employer] She was in [place] for a week and I ate pork and she was burping like rotten eggs. This persisted for a week. HOwever, this has resolved since then and she is taking the Aciphex bid and she feels it is working well. She is using what sounds like bisacodyl she buys at [employer] qod. ROV 6 mos. She is no longer taking Wegovy. Medications: Refilled rabeprazole (AcipHex) 20 mg PO BID 60 tabs 6RF K22.10 - Ulcer of esophagus without bleeding Coding Level of Care Code Est Pt Level 3 (19114) Diagnoses Erosive esophagitis K22.10 GERD (gastroesophageal reflux disease) K21.9 Morbid obesity E66.01
[2025-02-03 14:58] VITALS: BP 114/66; PULSE 66; O2SAT 98; BMI 34.5
--- OUTSIDE RECORDS SUMMARY | 2025-02-03 16:50 | XMS_ITS | Encounter Summary ---
Author Organization [employer] Address [address] [facility] [address] [place] [address] Care Team Providers Care Residential Specialist Name Role Phone RadhaKatlyn Primary Care Provider [phone] Encounter Details Date Type Department Care Team (Late st Contact Info) Description 07/28/2023 Orders Only [facility] [address] [place] [address] Mirna Richardson FNP Social History Tobacco Use [...] with others, in a hotel, in a senior care, living outside on the street, on a [...] documented as of this encounter Care Teams Residential Specialist Relationship Specialty Start Date End Date Katlyn Garcia DO [address] [place] [address] PCP - General Family Medicine 07/17/17 documented as of this encounter
--- OUTSIDE RECORDS SUMMARY | 2025-02-03 16:51 | XMS_ITS | Clinical Summary ---
Author Organization [employer] Address [address] [place] [address] [address] [place] [address] Care Team Providers Care In Home Nanny Name Role Phone RadhaKatlyn Primary Care Provider Allergies No known active allergies Medications Ventolin HFA 108 (90 Base) MCG/ACT inhaler INHALE 2 PUFFS EVERY 4 HOURS NEEDED FOR WHEEZING OR SHORTNESS OF BREATH 18 g 1 3 Active acetaminophen (Tylenol 8 Hour) 650 MG ER tablet TAKE 1 TABLET BY MOUTH EVERY 8 HOURS NEEDED 60 tablet 1 4 Active Diclofenac Sodium 1 % gel Apply 2 g topically if needed in the morning, at noon, in the evening, and at bedtime (pain). 150 g 3 4 Active baclofen (Lioresal) 10 MG tablet TAKE 1 TABLET BY MOUTH THREE TIMES DAILY NEEDED FOR SPASM 60 tablet 1 4 Active fluticasone (Flonase) 50 MCG/ACT nasal spray Administer 2 sprays into each nostril in the morning. Shake gently. Before first use, prime pump. After use, clean tip and replace cap. 48 g 3 4 Active cetirizine (ZyrTEC) 10 MG tablet Take 1 tablet (10 mg) by mouth in the morning. 90 tablet 3 4 Active cholecalciferol (D3 Super Strength) 50 MCG (2000 UT) capsule Take 1 capsule (50 mcg) by mouth in the morning. 90 capsule 3 4 Active ferrous sulfate 325 (65 Fe) MG tablet Take 1 tablet by mouth Once per day. 4 Active docusate sodium (Colace) 100 MG capsule Take 1 capsule (100 mg) by mouth 2 times daily. 180 capsule 3 4 02/20/20 25 Active polycarbophil (Fibercon) 625 MG tablet Take 1 tablet (625 mg) by mouth 2 times daily. 180 tablet 3 4 02/20/20 25 Active sennosides (Senokot) 8.6 MG tablet Take 2 tablets (17.2 mg) by mouth if needed at bedtime for constipation. 60 tablet 3 4 02/20/20 25 Active polyethylene glycol, PEG, 3350 (MiraLax) 17 GM/SCOOP powder Take 17 g by mouth if needed each day (constipation). 527 g 4 02/20/20 25 Active pantoprazole (ProtoNix) 40 MG EC tablet TAKE 1 TABLET BY MOUTH BEFORE BREAKFAST AND BEFORE EVENING MEAL. DO NOT CRUSH,CHEW OR SPLIT. 180 tablet 1 4 Active famotidine (Pepcid) 40 MG tablet TAKE 1 TABLET BY MOUTH AT BEDTIME 90 tablet 1 4 Active Tirzepatide-Abram ght Management (Zepbound) 2.5 MG/0.5ML solution auto-injector Inject 0.5 mL (2.5 mg) under the skin 1 (one) time per week. 2 mL 3 5 Active furosemide (Lasix) 20 MG tabletIndicatio ns:Localized swelling of both lower legs TAKE 1 TABLET BY MOUTH EVERY DAY NEEDED leg swelling 90 tablet 1 5 Active ketoconazole (NIZOral) 2 % shampoo Apply topically 2 (two) times a week. 240 mL 2 5 Active calcium carbonate (Tums) 500 MG chewable tablet Chew 2 tablets (1,000 mg) if needed in the morning, at noon, in the evening, and at bedtime for indigestion or heartburn. 60 tablet 1 4 01/06/20 25 sulfamethoxazol e-trimethoprim (Bactrim DS) 800-160 MG tablet Take 1 tablet by mouth 2 times daily for 3 days. 6 tablet 5 01/07/20 25 clotrimazole (Lotrimin) 1 % cream Apply topically if needed in the morning and at bedtime (rash) for up to 28 days. 60 g 2 5 02/01/20 25 Active Problems Problem Noted Date Diagnosed Date [...] nml -s/p optho eval FEBRUARY 2023 at [facility] for f/u in 2-years Fatty liver 12/29/2023 [...] cyst JUL 2023, referred for repeat at [facility] -CT abd/pelvis w/ uterine fibroids, unremarkable adnexa OCT 2022 -re-referred for [employer] eval at [facility] Melasma 04/09/2023 Constipation 04/09/2023 Family history [...] sprain 04/09/2023 05/19/2024 Pain of upper extremity 04/09/2023 03/2 02/2024 Palpitations 10/31/2022 12/29/2023 Chloasma 05/01/2018 05/19/2024 Encounters Date Type Department Care Team Description 01/03/2025 10:15 AM EDT Office Visit [facility] [address] [place] [address] Katlyn Garcia DO Acute UTI (Primary Dx); Varicose veins with pain; BMI 36.0-36.9,adult 01/03/2025 Telephone [facility] [address] [place] [address] Katlyn Garcia DO 01/03/2025 Travel 12/17/2024 Population Health Risk Score [facility] [address] [place] [phone] Provider, Population Health Generic 12/14/2024 Refill [facility] [address] [place] [address] Katlyn Garcia DO Localized swelling of both lower legs from Last 3 Months Immunizations Name Administration [...] Tobacco Screening 01/03/2026 01/03/2025 Mammogram 03/17/2026 03/17/2024, 100 12/2021, 04/12/2021, Additional history exists Cervical Cancer Screening 10/25/2027 HPV/Cotest 10/25/2027 10/25/2022, 04/03/2018 DTaP/Tdap/Td Vaccines (2 - Td or Tdap) 04/16/2028 04/16/2018 Lipid Panel 07/27/2029 07/27/2024, 0 12/2022, 07/01/2022, Additional history exists RSV Patients and Patients Aged 60 years or older (1 - 1-dose 75+ series) 2047 Hepatitis B Vaccines Completed 07/08/2022, 03/21/2021, 09/10/2019 Zoster Vaccines Completed 06/17/2024, 11/11/2022 HIV Screening Completed 07/27/2024, 0 12/2022, 07/01/2022, Additional history exists Hepatitis C [...] Routine 01/03/2025 1:43 PM EDT Acute UTI CULTURE, URINE, ROUTINE Routine 01/03/2025 12:00 AM EDT Acute UTI HEPATITIS C AB W/REFL [...] TEST ENTER/PAUL T ORDERABLES Final Result * Culture, Urine, Routine (01/03/2025 12:00 AM EDT) Urine Urine specimen obtained by clean catch procedure / Unknown 01/03/2025 01/03/2025 Comment:UACC Narrative [facility] - 01/06/2025 7:58 AM EDT Escherichia coli Quant > 100,000 cfu/mL Escherichia coli: Ampicillin >=32(R) Escherichia coli: Cefazolin (Urine) 4(S) Escherichia coli: Cefepime <=0.12(S) Escherichia coli: Ceftriaxone <=0.25(S) Escherichia coli: Ciprofloxacin <=0.06(S) Escherichia coli: Gentamicin <=1(S) Escherichia coli: Nitrofurantoin 64(I) Escherichia coli: Trimethoprim/Sulfamethoxazole <=20(S) Specimen Source: Urine clean catch Katlyn Garcia DO LAB MICROBIOLOGY - GENERAL O RDERABLES Final Result [facility] [address] [place] [phone] * Hepatitis C Antibody with Reflex to HCV, RNA, Quantitative, Real-Time PCR (07/27/2024 9:00 AM EDT) Hepatitis C Antibody Nonreactive Nonreactive [facility] Comment:Antibodies to HCV no t detected; does not exclude early acuteHCV infection. Blood Venous blood specimen / Unknown 07/27/2024 9:00 AM EDT 07/27/2024 11:04 AM EDT Katlyn Tonjatonie HURST LAB BLOOD ORDERABLES Final R esult Performing Organization Address City/[facility]/ZIP Co de Phone Number [facility] [address] [place] [phone] * HIV-1/2 Antigen and Antibodies, Fourth Generation, with Reflexes (07/27/2024 9:00 AM EDT) [facility] HIV AB/AG Nonreactive Nonreactive [facility] Comment:HIV-1 p24 Ag and/or HIV-1/HIV-2 Ab not detected.A test result that is nonreactive does not exclude thepossibility of exposure to or infection with HIV-1 and/orHIV-2. Nonreactive results in this assay for individualswith prior exposure to HIV-1 and/or HIV-2 may be due toantigen and antibody levels that are below the limit ofdetection of this assay.The [facility] [employer] HIV Ag/Ab Combo assay result andsupplemental assay results should be interpreted inconjunction with the patient's clinical presentation,history and other laboratory results. If the results areinconsistent with clinical evidence, additional testing issuggested to confirm the result. Blood Venous blood specimen / Unknown 07/27/2024 9:00 AM EDT 07/27/2024 11:04 AM EDT Katlyn Alcantaraevantonie [facility] LAB BLOOD ORDERABLES Final R ult Performing Organization Address [facility]/ZIP Co de Phone Number [facility] [address] [place] [address] [phone] * (ABNORMAL) Lipid Panel, Standard (07/27/2024 9:00 AM EDT) [facility] Triglycerides 233(H) <150 mg/dL [facility] Comment:Desirable Triglyceri de: less than 150 mg/dLBorderline High Triglyceride 150-199 mg/dLHigh Triglyceride: 200-499 mg/dLVery High Triglyceride: greater than or equal to 5OO mg/dL Cholesterol 190 <200 mg/dL [facility] Comment:Desirable Cholestero l: less than 200 mg/dLBorderline High Cholesterol: 200-239 mg/dLHigh Cholesterol: greater than 239 mg/dL LDL Cholesterol Calculated 104(H) <100 mg/dL [facility] Comment:Desirable LDL: less than 100 mg/dLNear Optimal/Above Optimal LDL: 110- 129 mg/dLBorderline High LDL: 130-159 mg/dLHigh LDL: 160-189 mg/dLVery High LDL: greater than or equal to 190 mg/dL HDL Cholesterol 40(L) >40 mg/dL [facility] Comment:Desirable HDL: great er than 40 mg/dL Note: This HDL assay may give artificially low results in patients with liver disease. Blood Venous blood specimen / Unknown 07/27/2024 9:00 AM EDT 07/27/2024 11:09 AM EDT Katlyn Garcia DO LAB BLOOD ORDERABLES Final R esult [facility] [address] [place] [phone] * BI Mammogram Screening Tomosynthesis Bilateral (03/17/2024 10:00 AM EDT) Anatomical Region Laterality Modality Breast Bilateral Mammography 03/17/2024 10:0 0 AM EDT Narrative 04/16/2024 8:07 AM EDT ? [facility] ?[address] ?[place] [address] ? Mammography Report ? Signed ? Patient: Sheth Dwight,Jodi ?MR#: ?? [id number] ? : 1970 ?Acct:[id number] ? Age/Sex: 53 / F ?ADM Date: 06/12/24 ? Loc: HO.US ? Attending Dr: Katlyn Garcia DO ? Ordering Physician: Katlyn Garcia DO ?Results: 2B ?? enign Findings ? Date of Service: 03/17/24 ?Follow Up: 1 Year From Orig ?? inal Mammogram ? Procedure(s): MM tomosynthesis screening BI ?? Accession Number(s): [id number] ? cc: Katlyn Garcia DO ? EXAMINATION: [...] 0803 ? DD/ 1000 ? TD/TT: ? Ux Engineer: ? Procedure Note Donotuseinterpreter, Image - 04/16/[address] [address] Mammography Report Signed Patient: Jodi MorrisMR#: [id number] : 1970Acct:[id number] Age/Sex: 53 / FADM Date: 03/17/24 Loc: HO. Attending Dr: Katlyn Garcia DO Ordering Physician: Katlyn Garciaults: 2B enign Findings Date of Service: 03/17/24Follow Up: 1 Year From Orig inal Mammogram Procedure(s): MM tomosynthesis screening BI Accession Number(s): [id number] cc: Katlyn Garcia DO EXAMINATION: MM SCREENING [...] in OV> 04/16/24 0803 DD/ 1000 TD/TT: Ux Engineer: Katlyn Garcia DO IMG BI PROCEDURES Final Resu lt * Thinprep PAP, HPV mRNA E6/E7 RFX HPV 16,18/45, Chlamydia/N. Gonorrhoeae (10/25/2022 11:10 AM EST) Clinical Information: SCREENING PAP [facility] LMP: 20,221,222 SocMetric[employer] Prev. PAP: NONE GIVEN [employer] Prev. BX: YES [facility] SOURCE: None given [employer] Statement Of Adequacy: [employer] Comment: Satisfactory for evaluation. Endocervical/transformation zone component present. Interpretation/Re sult: Negative for intraepithelial lesion or malignancy. [employer] Relay Tester Helper: [employer] Comment: ED, CT(ASCP) CT screening location: [place] [address] (Always Message) [facility] Comment: EXPLANATORY NOTE: The Pap is a [...] HPV nRNA E6/E7 Not Detected Not Detected [employer] Comment: Methodology: Foreign Legal Consultant-Mediated Amplification This assay detects E6/E7 viral messenger RNA (mRNA) from 14 high-risk HPV types (16,18,31,33,35,39,45,51,52,56,58,59,66,68). Cervical sources are required for HPV testing. If a vaginal source from a patient who has had a total hysterectomy with removal of cervix was submitted, please contact the testing laboratory for alternative testing options. For additional information, please refer to http://trueAnthem.Sagence/faq/UIM352h6 (This link if provided for information/ educational purposes only.) Chlamydia trachomatis RNA, TMA, Urogenital NOT DETECTED NOT DETECTED [facility] [place] [facility] Neisseria gonorrhoeae RNA, TMA, Urogenital NOT DETECTED NOT DETECTED [facility] [place] [facility] (Always Message) [facility] [employer] [place] [facility] [facility] Comment: The analytical performance characteristics of this assay, when used to test SurePath(TM) specimens have been determined by [facility]. The modifications have not been cleared or approved by the FDA. This assay has been validated pursuant to the CLIA regulations and is used for clinical purposes. For additional information, please refer to https://trueAnthem.Sagence/faq/MGT040 (This link is being provided for information/ educational purposes only.) Specimen from uterine cervix (specimen) 10/25/2022 11:10 AM EST 10/28/2022 12:24 AM EST us Katlyn Garcia DO LAB PATHOLOGY ORDERABLES Fin al Result [facility] [address], [place] [address] [facility] [place] [facility] [address] [facility], ([address]) [place] [phone] from Last 3 Months or Most Recently Relevant to Health Maintenance [place] [address] [address] C3 HSN FULL Care Teams In Home Nanny Relationship Specialty Start Date End Date Katlyn Garcia DO [address] [place] [phone] PCP - General Family Medicine 07/17/17
== END 2025-02-03 15:22 | disposition home or self-care (01) ==
LOC: HO.HGI 14:51
PROVIDERS: PCP Family Medicine; Visit Provider Nurse Practitioner
DX: K22.10 Ulcer of esophagus without bleeding (principal); K21.9 Gastro-esophageal reflux disease without esophagitis; E66.01 Morbid (severe) obesity due to excess calories
CPT/HCPCS: 99213

== ENCOUNTER → 2025-02-03 14:50 | Outpatient (BNVA) | payer MEDICAID, SELFPAY | PROVIDERS: PCP Family Medicine; Visit Provider Nurse Practitioner | DX: K22.10 Ulcer of esophagus without bleeding (principal); K21.9 Gastro-esophageal reflux disease without esophagitis; E66.01 Morbid (severe) obesity due to excess calories; Z68.34 Body mass index [BMI] 34.0-34.9, adult | CPT/HCPCS: 99212 ==

== ENCOUNTER 2025-04-27 13:59 | Outpatient (REF) | payer MEDICAID, SELFPAY ==
--- OUTSIDE RECORDS SUMMARY | 2025-04-27 14:42 | XMS_ITS | Encounter Summary ---
Author Organization [employer] Address [address] [facility] [address] [place] [address] Care Team Providers Care Customs Inspector Name Role Phone RadhaKatlyn Primary Care Provider + [phone] Encounter Details Date Type Department Care Team (Late st Contact Info) Description 07/28/2023 Orders Only [facility] [address] [place] [address] Mirna Richardson FNP Social History Tobacco Use [...] with others, in a hotel, in a halfway, living outside on the street, on a [...] documented as of this encounter Care Teams Customs Inspector Relationship Specialty Start Date End Date Katlyn Garcia DO [address] [place] [address] PCP - General Family Medicine 07/17/17 documented as of this encounter
== END 2025-04-27 14:00 | disposition home or self-care (01) ==
LOC: HO.MAMMO 13:59
PROVIDERS: Visit Provider Family Medicine
DX: Z12.31 Encounter for screening mammogram for malignant neoplasm of breast (principal)
CPT/HCPCS: 77063; 77067

== ENCOUNTER → 2025-04-27 14:30 | Outpatient (BNV) | payer MEDICAID, SELFPAY | PROVIDERS: Visit Provider Radiology Body Imaging | DX: Z12.31 Encounter for screening mammogram for malignant neoplasm of breast (principal) | CPT/HCPCS: 77063; 77067 ==

== ENCOUNTER 2025-08-16 13:36 | Outpatient (AMB) | payer MEDICAID, SELFPAY ==
--- NOTE | 2025-08-16 13:45 | A.OFFVIS_ITS ---
Vital Signs 08/16/25 13:52 Height 5 ft 4 in Weight 193 lb BMI 33.1 BP 98/54 L Blood Pressure Location Rt brachial Position Sitting Pulse 90 Pulse Source Pulse Oximeter Pulse Oximetry (%) 98 Oxygen Delivery Method Room Air Intake Visit Reasons: 6 month erosive esophagitis Intake Note: Est pt for mgmt of GERD w/ erosive esophagitis. CC; Pt denies any new GI sx or concerns at this time. Confirms that she is still taking her PPI and it is working for her as intended. Fountain Roller Assembler Required: Yes Fountain Roller Assembler Services: Fountain Roller Assembler Present Fountain Roller Assembler Name: Sara [id number] + [facility] Information Interpreted: clinical only Accompanied by: Spouse Allergies No Known Allergies Allergy (Verified 08/16/25 13:46) HPI HPI 6 month erosive esophagitis: Details: Prydeinig #Biju Lott She was in [place] for a week and I ate pork and she was burping like rotten eggs. This persisted for a week. HOwever, this has resolved since then and she is taking the Aciphex bid and she feels it is working well. She is using what sounds like bisacodyl she buys at [employer]. ROV 6 mos. She is no longer taking Wegovy. Medications: Refilled rabeprazole (AcipHex) 20 mg PO BID 60 tabs 6RF K22.10 - Ulcer of esophagus without bleeding [facility] Medical History Pre-op examination Asthma Epidermal cyst GERD (gastroesophageal reflux disease) Surgical History History of esophagogastroduodenoscopy (EGD) H/O colonoscopy Hx of heart surgery History of tubal ligation History of tonsillectomy Family History Father Cancer Mother Colon polyps Sister Colon polyps Maternal Uncle Colon cancer Social History Household Members: Spouse Are you a primary clinical care coordinator to a significant other at home: No Do you presently have visiting nurse or other home services: No Alcohol intake: former Patient Tobacco Use Status: Never used Tobacco service: No Current occupational status: employed 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 Review of Systems Const Denies fatigue, Denies fever(s), Denies night sweats, Denies poor appetite and Denies weight loss Eyes Reports requires corrective lenses ENT Reports Normal hearing present, Reports halitosis, Denies dental pain, Denies dysphagia, Denies hearing loss, Denies mouth pain, Denies odynophagia, Denies throat swelling, Denies tongue swelling and Reports other (Dentition adequate) Card Reports no additional complaints Resp Reports no additional complaints GI Details: Denies abdominal pain, Denies melena, Denies bloating, Denies hematochezia, Reports constipation, Denies GI cramping, Denies dysphagia, Denies excessive flatus, Denies early satiety, Reports heartburn, Denies diarrhea, Denies nausea, Denies odynophagia, Denies vomiting and Denies hematemesis Skin/Breast Denies pruritus, Denies lesions, Denies rash and Denies jaundice Neuro Reports Normal hearing present and Denies Abnormal speech present Endo Denies fatigue Aller/Immun Denies throat swelling and Denies tongue swelling Physical Exam Vital Signs: Last Vital Signs Pulse 90 08/16/25 13:52 BP 98/54 L 08/16/25 13:52 Pulse Ox 98 08/16/25 13:52 Oxygen Delivery Method Room Air 08/16/25 13:52 BMI result Body Mass Index 33.1 Const General: cooperative, no acute distress, well developed and well groomed Nutritional Appearance: well nourished and obese Orientation/consciousness: oriented to person, oriented to place and oriented to time Limitations: No language barrier HEENT Head: Yes normocephalic and Yes atraumatic Eyes General: appearance normal, both eyes and all related structures Pupils: Equal, round and reactive pupils present Neck Neck: Yes normal visual inspection and Yes no lymphadenopathy Thyroid: Thyroid normal Resp Effort & Inspection: normal respiratory effort and able to speak in complete sentences Auscultation: clear to auscultation bilaterally Cardio Rate: regular rate Rhythm: regular rhythm Heart sounds: Normal, physiologic split S2 sound present Peripheral pulses: radial pulses present and posterior tibial pulses present GI Inspection: No distended, No Abdominal panniculus present and Yes obesity Palpation (GI): Soft to palpation, nontender, no guarding, not rigid and No hepatosplenomegaly present Percussion: Yes normal to percussion Auscultation: normal bowel sounds Rectal Exam - Female: deferred Skin General skin exam: no rashes or lesions noted, turgor normal, skin not dry, no jaundice, No spider nevi and no striae Rashes: no rashes Nails: normal Neuro General: oriented to person, oriented to place and oriented to time Cranial nerves: Yes Equal, round and reactive pupils present and Yes Normal hearing present Speech: No Abnormal speech present Extrem General: Yes normal to inspection, No clubbing, No cyanosis and No edema Psych Appearance: grossly normal and well kempt Mental Status: mental status grossly normal Speech and movement: Normal speech and movement present Affect: normal affect Attitude: cooperative Thought process: Normal thought process present and not confabulating Thought content: Normal thought content present Insight: Limited insight present (Psych) Judgement: Limited judgement present (Psych) Assessment & Plan Assessment & Plan (1) GERD (gastroesophageal reflux disease): Code(s): K21.9 - Gastro-esophageal reflux disease without esophagitis Category: Medical (2) Erosive esophagitis: Code(s): K22.10 - Ulcer of esophagus without bleeding Category: Medical Plan Prydeinig #Liza Live She continues on her rabeprazole twice a day. However she is complaining recently of burping with her breath smelling/tasting very foul. She has never had this before. There has been no other new medications introduced, no diet changes to explain this. With questioning, it turns out that she suffers fairly severe constipation at times only moving her bowels once every 2 weeks with very hard stools. I was not aware that she had this severe problem and this could explain why she is getting this issue. Apparently she has gone through multiple medications with her primary care provider including fiber, Colace, senna, MiraLax, lactulose, and most recently bisacodyl. She will take 3 bisacodyl and it still will not move her bowels. With this I think we need to advance her to Linzess and will started 145 micro g and titrate to affect her side effect. Return office visit in 6 weeks Medications: New linaclotide (Linzess) Take first thing in the morning with a full glass of water. 145 mcg PO QAM 30 caps 6RF K58.1 - Irritable bowel syndrome with constipation Refilled rabeprazole (AcipHex) 20 mg PO BID 60 tabs 6RF K22.10 - Ulcer of esophagus without bleeding Coding Level of Care Code Est Pt Level 3 (98220) Diagnoses GERD (gastroesophageal reflux disease) K21.9 Erosive esophagitis K22.10
[2025-08-16 13:52] VITALS: BP 98/54; PULSE 90; O2SAT 98; BMI 33.1
--- OUTSIDE RECORDS SUMMARY | 2025-08-16 15:16 | XMS_ITS | Clinical Summary ---
Author Organization [employer] Address [address] [place] [address] [address] [place] [address] Care Team Providers Care Foster Winder Name Role Phone RadhaKatlyn Primary Care Provider [phone] Allergies No known active allergies Medications Ventolin [...] by mouth Once per day. 4 Active pantoprazole (ProtoNix) 40 MG EC tablet [...] a week. 240 mL 2 5 Active Active Problems Problem Noted Date Diagnosed Date [...] nml -s/p optho eval FEBRUARY 2023 at [facility] for f/u in 2-years Fatty liver 12/29/2023 [...] cyst JUL 2023, referred for repeat at [facility] [place] abd/pelvis w/ uterine fibroids, unremarkable adnexa OCT 2022 -re-referred for [facility] eval at [place] [facility] Melasma 04/09/2023 Constipation 04/09/2023 Family history [...] Encounters Date Type Department Care Team Description 08/12/2025 Patient Outreach [facility] CHC MED & PEDS [address] [place] [address] Katlyn Garcia DO Pre-visit Planning ([facility] unable to reach ) from Last 3 Months Immunizations Immunization Administration Dates Next Due Hep B, adult [...] 75 01/03/2025 11:02 AM EDT Temperature 36.3 C (97.3 F) 01/03/2025 11:02 AM EDT Respiratory Rate 20 01/03/2025 11:02 AM EDT Oxygen Saturation 98% 01/03/2025 11:02 AM EDT Inhaled Oxygen Concentration - - Weight 97.5 kg (215 lb) 01/03/2025 11:02 AM EDT Height 162.6 cm (5' 4 ) 01/03/2025 11:02 AM EDT Body Mass Index 36.9 01/03/2025 11:02 AM EDT Plan of Treatment Upcoming Encounters Date Type Department Care Team (Late st Contact Info) Description 08/19/2025 9:15 AM EST Office Visit [facility] MEDICINE [address] [place] [address] Katlyn Garcia DO [address] [place] [address] 10/13/2025 11:00 AM EST Office Visit [facility] OPTOMETRY [address] [place] [address] Naya Stevens, OD [address] [place] [address] Health Maintenance Due Date Last Done Comments CT Colonography 1972 FIT DNA/Cologuard 1972 FIT 1972 FOBT 1972 Sigmoidoscopy 1972 Alcohol/Substance Use Screening 1984 Family Planning (PISQ) 1987 Hepatitis A Vaccines (1 of 2 - Risk 2-dose series) 1991 Pneumococcal Vaccine: 50+ Years (2 of 2 - PCV) 04/16/2019 04/16/2018 COVID-19 Vaccine ( - season) 2025 11/05/2022, 12/05/2021, 11/13/2021 Influenza Vaccine (#1) 2025 , 06/23/2023, 06/24/2022, Additional history exists Pap Smear 10/25/2025 10/25/2022 Depression Screening 11/05/2025 11/05/2024, 11/05/19 25 Disability Screening 01/03/2026 01/03/2025 SDOH Screening 01/03/2026 01/03/2025 Tobacco Screening 01/03/2026 01/03/2025 Mammogram 04/27/2026 04/27/2025, 03/06, 07/08/2022, Additional history exists Cervical Cancer Screening 10/25/2027 HPV/Cotest 10/25/2027 10/25/2022, 04/03/2018 DTaP/Tdap/Td Vaccines (2 - Td or Tdap) 04/16/2028 04/16/2018 Colonoscopy 09/23/2029 09/23/2024 Colorectal Cancer Screening 09/23/2029 RSV Patients and Patients Aged 60 years or older (1 - 1-dose 75+ series) 2047 Hepatitis B Vaccines Completed 07/08/2022, 03/21/2021, 09/10/2019 Zoster Vaccines Completed 06/17/2024, 11/11/2022 HIV Screening Completed 07/27/2024, 1012/2022, 07/01/2022, Additional history exists Hepatitis C Screening Completed 07/27/2024 , 07/08/2023, 07/01/2022, Additional history exists HIB Vaccines Aged Out No longer eligi ble based on patient's age to complete this topic HPV Vaccines Aged Out No longer eligi ble based on patient's age to complete this topic IPV Vaccines Aged Out No longer eligi ble based on patient's age to complete this topic Meningococcal B Vaccine Aged Out No l onger eligible based on patient's age to complete [...] Procedure Name Priority Date/Time Associated Diagnosis Comments BI MAMMOGRAM SCREENING TOMOSYNTHESIS BILATERAL Routine 04/27/2025 2:05 PM EDT HM COLONOSCOPY Routine 09/23/2024 HEPATITIS C AB W/REFL TO HCV RNA, [...] unspecified whether serious comorbidity present Epigastric pain THINPREP PAP, HPV MRNA E6/E7 RFX HPV 16,18/45, CHLAMYDIA/N.GONORRHOE AE Routine 10/25/2022 11:10 AM EST Encounter for annual routine gynecological examination from Last 3 Months or Most Recently Relevant to Health Maintenance Results * BI Mammogram Screening Tomosynthesis Bilateral (04/27/2025 2:05 PM EDT) Anatomical Region Laterality Modality Breast Bilateral Mammography 04/27/2025 2:05 PM EDT Narrative 05/03/2025 7:37 PM EDT [facility] [address] [place] [address] Mammography Report Signed Patient: Jodi Morris MR#: [id number] : 1970 Acct:[id number] Age/Sex: 54 / F ADM Date: 04/27/25 Loc: HO.MAMMO Attending Dr: Katlyn Garcia DO Ordering Physician: Katlyn Garcia DO Results: 2B enign Findings Date of Service: 04/27/25 Follow Up: 1 Year From [facility] ina Mammogram Procedure(s): MM tomosynthesis screening BI Accession Number(s): [id number] cc: Katlyn Garcia DO EXAMINATION: MM SCREENING DIGITAL BREAST TOMOSYNTHESIS, BILATERAL CLINICAL INFORMATION: Screening. Asymptomatic. COMPARISON: Comparison made to multiple prior, most recent March 17, 2024, and most remote March 16, 2020. TECHNIQUE: Digital breast tomosynthesis is performed in both the craniocaudal and mediolateral oblique views along with computer-aided detection (CAD). Synthesized 2D images are generated from the tomosynthesis. FINDINGS: BREAST COMPOSITION: There are scattered areas of fibroglandular density (ACR BI-RADS breast composition Category b). BILATERAL BREASTS: Benign-appearing diffuse calcifications are similar to at least 2021. No significant masses, suspicious calcifications or other abnormalities are seen in either breast. MM/MM tomosynthesis screening BI IMPRESSION: BILATERAL BREASTS: Benign, no mammographic evidence of malignancy. Normal interval follow-up is recommended in 12 months. ASSESSMENT: BI-RADS 2 - Benign Findings RECOMMENDATION: Routine annual mammography screening. FOLLOW-UP: 1 year F/U This examination should not preclude the clinical evaluation of a suspicious palpable abnormality. This patient's information was entered into a reminder system with a target due date for their next mammogram. Electronically signed by: Jordan Knowles MD 05/03/2025 07:33 PM EDT Dictated By: Jordan Knowles MD Signed By: <Electronically signed by Jordan Knowles MD in OV> 05/03/25 1933 DD/ 1405 TD/TT: 04/27/25 1430 Emergency Room Doctor: Procedure Note Donotuseinterpreter, Image - 05/03/2025 [facility]'s [address] [place] [address] Mammography Report Signed Patient: Rebecca Morris#: [id number] : 1970Acct:[id number] Age/Sex: 54 / FADM Date: 04/27/25 Loc: HO.MAMMO Attending Dr: Katlyn Garcia DO Ordering Physician: Katlyn Garciaults: 2B enign Findings Date of Service: 04/27/25Follow Up: 1 Year From Orig inal Mammogram Procedure(s): MM tomosynthesis screening BI Accession Number(s): [id number] cc: Katlyn Garcia DO EXAMINATION: MM SCREENING DIGITAL BREAST TOMOSYNTHESIS, BILATERAL CLINICAL INFORMATION: Screening. Asymptomatic. COMPARISON: Comparison made to multiple prior, most recent March 17, 2024, and most remote March 16, 2020. TECHNIQUE: Digital breast tomosynthesis is performed in both the craniocaudal and mediolateral oblique views along with computer-aided detection (CAD). Synthesized 2D images are generated from the tomosynthesis. FINDINGS: BREAST COMPOSITION: There are scattered areas of fibroglandular density (ACR BI-RADS breast composition Category b). BILATERAL BREASTS: Benign-appearing diffuse calcifications are similar to at least 2021. No significant masses, suspicious calcifications or other abnormalities are seen in either breast. MM/MM tomosynthesis screening BI IMPRESSION: BILATERAL BREASTS: Benign, no mammographic evidence of malignancy. Normal interval follow-up is recommended in 12 months. ASSESSMENT: BI-RADS 2 - Benign Findings RECOMMENDATION: Routine annual mammography screening. FOLLOW-UP: 1 year F/U This examination should not preclude the clinical evaluation of a suspicious palpable abnormality. This patient's information was entered into a reminder system with a target due date for their next mammogram. Electronically signed by: Jordan Knowles MD 05/03/2025 07:33 PM EDT RP Dictated By: Jordan Knowles MD Signed By: <Electronically signed by Jordan Knowles MD in OV> 05/03/25 1933 DD/ 1405 TD/TT: 04/27/25 1430 Emergency Room Doctor: Katlyn Garcia DO IMG BI PROCEDURES Final Resu lt * Hm Colonoscopy (09/23/2024) Colonoscopy Normal Normal Narrative Connie Samuels - 09/23/2024 See external hospital admission note on 09/23/2024. Recommended repeat in 5 years us Historical Provider HEALTH MAINTENANCE Final Result * Hepatitis C Antibody with Reflex to HCV, RNA, Quantitative, Real-Time PCR (07/27/2024 9:00 AM EDT) Hepatitis C Antibody Nonreactive Nonreactive [facility] Comment:Antibodies to HCV no t detected; does not exclude early acuteHCV infection. Blood Venous blood specimen / Unknown 07/27/2024 9:00 AM EDT 07/27/2024 11:04 AM EDT Katlyn Garcia DO LAB BLOOD ORDERABLES Final R esult [facility] [address] [place] [address] [phone] * HIV-1/2 Antigen and Antibodies, Fourth Generation, with Reflexes (07/27/2024 9:00 AM EDT) HIV AB/AG Nonreactive Nonreactive [facility] Comment:HIV-1 p24 Ag and/or HIV-1/HIV-2 Ab not detected.A test result that is nonreactive does not exclude thepossibility of exposure to or infection with HIV-1 and/orHIV-2. Nonreactive results in this assay for individualswith prior exposure to HIV-1 and/or HIV-2 may be due toantigen and antibody levels that are below the limit ofdetection of this assay.The [employer] HIV Ag/Ab Combo assay result andsupplemental assay results should be interpreted inconjunction with the patient's clinical presentation,history and other laboratory results. If the results areinconsistent with clinical evidence, additional testing issuggested to confirm the result. Blood Venous blood specimen / Unknown 07/27/2024 9:00 AM EDT 07/27/2024 11:04 AM EDT Katlyn Garcia DO LAB BLOOD ORDERABLES Final R esult [facility] [address] [place] [phone] * Thinprep PAP, HPV mRNA E6/E7 RFX HPV 16,18/45, Chlamydia/N. Gonorrhoeae (10/25/2022 11:10 AM EST) Clinical Information: SCREENING PAP [facility] [place] [facility] LMP: 20,221,222 [facility] [place] [facility] Prev. PAP: NONE GIVEN [facility] [place] [facility] Prev. BX: YES [facility] [place] [facility] SOURCE: None given [facility] [place] [facility] Statement Of Adequacy: [facility] [place] [facility] Comment: Satisfactory for evaluation. Endocervical/transformation zone component present. Interpretation/Re sult: Negative for intraepithelial lesion or malignancy. [facility] [place] [facility] Sales Representative: Lady [employer] [place] [facility] Comment: ED, CT(ASCP) CT screening location: [place] [address] (Always Message) [facility] [employer] [facility] Comment: EXPLANATORY NOTE: The Pap is a [...] HPV nRNA E6/E7 Not Detected Not Detected [facility] Comment: Methodology: Assessment Nurse-Mediated Amplification This assay detects E6/E7 viral messenger RNA (mRNA) from 14 high-risk HPV types (16,18,31,33,35,39,45,51,52,56,58,59,66,68). Cervical sources are required for HPV testing. If a vaginal source from a patient who has had a total hysterectomy with removal of cervix was submitted, please contact the testing laboratory for alternative testing options. For additional information, please refer to http://[employer]).Vetiary/faq/QPL753l4 (This link if provided for information/ educational purposes only.) Chlamydia trachomatis RNA, TMA, Urogenital NOT DETECTED NOT DETECTED [facility] Neisseria gonorrhoeae RNA, TMA, Urogenital NOT DETECTED NOT DETECTED [facility] Comment [facility] Comment: The analytical performance characteristics of this assay, when used to test SurePath(TM) specimens have been determined by [facility]. The modifications have not been cleared or approved by the FDA. This assay has been validated pursuant to the CLIA regulations and is used for clinical purposes. For additional information, please refer to https://[employer] ([employer]).Vetiary/faq/QLP961 (This link is being provided for information/ educational purposes only.) Specimen from uterine cervix (specimen) 10/25/2022 11:10 AM EST 10/28/2022 12:24 AM EST us Katlyn Garcia DO LAB PATHOLOGY ORDERABLES Fin al Result [facility] [address] [facility], [facility], [place] [phone] [facility] [address] [facility], ([address]) [place] [address] from Last 3 Months or Most Recently Relevant to Health Maintenance Insurance [facility] C[facility] F[facility] Care Teams Foster Winder Relationship Specialty Start Date End Date Katlyn Garcia DO [address] [place] [phone] PCP - General Family Medicine 07/17/17
--- OUTSIDE RECORDS SUMMARY | 2025-08-16 15:16 | XMS_ITS | Encounter Summary ---
Author Organization [employer] Address [address] [facility] [address] [place] [address] Care Team Providers Care Head Bellhop Captain Name Role Phone Katlyn Garcia DO Primary Care Provider [phone] Reason for Visit * Reason Comments Pre-visit Planning [facility] unable to reach Encounter Details Date Type Department Care Team ([facility] st Contact Info) Description 08/12/2025 Patient Outreach [facility] CHC MED & PEDS [address] [place], [place] [phone] Katlyn Garcia DO [address] [place] [address] Pre-visit Planning ([facility] unable to reach ) Social History Tobacco Use Types Packs/Day Years [...] AM EDT documented as of this encounter Progress Notes * Jena Montague - 08/12/2025 11:20 AM EST FLORENTIN Almendarez placed outbound call to patient to complete pre-visit planning. No answer at this time. Patient name and were not confirmed. CC unable to leave a message due to number not in service documented in this encounter Plan of Treatment Upcoming Encounters Date Type Department Care Team (Late st Contact Info) Description 08/19/2025 9:15 AM EST Office Visit [facility] MEDICINE [address] [place] [address] Katlyn Garcia DO [address] [place] [address] 10/13/2025 11:00 AM EST Office Visit [facility] OPTOMETRY [address] [place] [address] Naya Stevens OD [address] [place] [address] documented as of this encounter Visit Diagnoses Not on filedocumented in this encounter Additional Health Concerns Assessment Noted Time PHQ-9 Depression Total Score: 0 11/05/19 25 11:56 AM EST documented as of this encounter Care Teams Head Bellhop Captain Relationship Specialty Start Date End Date Katlyn Garcia DO [address] [place] [phone] PCP - General Family Medicine 07/17/17 documented as of this encounter
--- OUTSIDE RECORDS SUMMARY | 2025-08-16 15:16 | XMS_ITS | Encounter Summary ---
Author Organization [employer] Address [address] [facility] [address]t [place] [address] Care Team Providers Care Log Getter Name Role Phone RadhaKatlyn Primary Care Provider + [phone] Encounter Details Date Type Department Care Team (Late st Contact Info) Description 07/28/2023 Orders Only [facility] [address] [place] [address] Mirna Richardson FNP Social History Tobacco Use [...] with others, in a hotel, in a fci, living outside on the street, on a [...] as of this encounter Plan of Treatment Upcoming Encounters Date Type Department Care Team (Late st Contact Info) Description 08/19/2025 9:15 AM EST Office Visit [facility] MEDICINE [address] [place] [address] Katlyn Garcia DO [address] [place] [address] 10/13/2025 11:00 AM EST Office Visit [facility] OPTOMETRY [address] [place] [address] Tarka, Naya, OD [address] [place] [address] documented as of this encounter Visit Diagnoses Not on filedocumented in this encounter Additional Health Concerns Assessment Noted Time PHQ-9 Depression Total Score: 0 06/23/20 23 9:10 AM EDT documented as of this encounter Care Teams Log Getter Relationship Specialty Start Date End Date Katlyn Garcia DO [address] [place] [id number] PCP - General Family Medicine 07/17/17 documented as of this encounter
== END 2025-08-16 14:09 | disposition home or self-care (01) ==
LOC: HO.HGI 13:36
PROVIDERS: PCP Family Medicine; Visit Provider Nurse Practitioner
DX: K21.9 Gastro-esophageal reflux disease without esophagitis (principal); K22.10 Ulcer of esophagus without bleeding
CPT/HCPCS: 99213

== ENCOUNTER → 2025-08-16 13:36 | Outpatient (BNVA) | payer MEDICAID, SELFPAY | PROVIDERS: PCP Family Medicine; Visit Provider Nurse Practitioner | DX: K22.10 Ulcer of esophagus without bleeding (principal); K21.9 Gastro-esophageal reflux disease without esophagitis | CPT/HCPCS: 99212 ==

== ENCOUNTER 2025-08-19 09:55 | Outpatient (REF) | payer MEDICAID, SELFPAY ==
[2025-08-19 11:47] LABS: Hematocrit 38.1 % (37.0-47.0); Hemoglobin 12.4 g/dl (12.0-16.0); Mean Corpuscular HGB Conc 32.5 g/dl (31.0-35.0); Mean Corpuscular Hemoglobin 29.0 pg (27.0-33.0); Mean Corpuscular Volume 89.2 fL (80.0-98.0); NRBC Abs Auto 0.000 X10*3/uL (0.0-0.012); NRBC Pct Auto 0.0 /100WBC (0.0-0.2); Platelet Count 243 X10*3/uL (160-400); Red Blood Count 4.27 X10*6/uL (4.20-5.50); White Blood Count 3.6 X10*3/uL (4.8-10.8)
[2025-08-19 12:23] LABS: Alanine Aminotransferase 26 U/L (0-31); Albumin Level 4.3 g/dL (3.5-5.0); Alkaline Phosphatase 59 U/L (39-117); Anion Gap 10 (12-20); Aspartate Amino Transferase 28 U/L (5-31); Blood Urea Nitrogen 11 mg/dL (9-16); Calcium 9.1 mg/dL (8.4-10.2); Carbon Dioxide 23 mmol/L (22-29); Chloride 111 mmol/L (96-108); Cholesterol 203 mg/dL (<200); Estimated Glomerular Filt Rate > 60; HDL Cholesterol 44 mg/dL (>40); Iron 52 mcg/dL (30-160); Percent Iron Saturation 16 % (15-50); Potassium 4.1 mmol/L (3.3-5.1); Sodium 140 mmol/L (135-145); Total Iron Binding Capacity 325 mcg/dL (228-428); Total Protein 7.8 g/dL (6.5-8.0); Triglycerides 105 mg/dL (<150); Unsaturated Iron Binding 273 ug/dL
[2025-08-19 12:26] LABS: ~Hepatitis A Antibody IgG 0.64 S/CO (0.00-0.99)
[2025-08-19 12:35] LABS: HBS Num1 15.34 mIU/mL (0-7.99); HBsAGNum1 0.36 S/CO (0.00-0.99); HIV Num 1 0.10 S/CO (0.00-0.99); Hepatitis B Surface Antigen Negative (Negative); ~HepC Num1 0.10 S/CO (0.00-0.79); ~Hepatitis B Surface Antibody REACTIVE (Nonreactive); ~Hepatitis C Antibody Nonreactive (Nonreactive)
[2025-08-19 12:41] LABS: Ferritin 13 ng/mL (10-250); Free T4 (Free Thyroxine) 1.13 ng/dL (0.71-1.85); Thyroid Stimulating Hormone 1.15 uIU/mL (0.32-4.0)
[2025-08-19 12:43] LABS: Folate 11.6 ng/mL (> or = 4.0); Vitamin B12 412 pg/mL (200-900)
== END 2025-08-19 09:56 | disposition home or self-care (01) ==
LOC: HO.HHCL 09:55
PROVIDERS: PCP Family Medicine; Visit Provider Family Medicine
DX: Z11.4 Encounter for screening for human immunodeficiency virus [HIV] (principal); Z11.3 Encounter for screening for infections with a predominantly sexual mode of transmission; Z11.59 Encounter for screening for other viral diseases; D64.9 Anemia, unspecified; K76.0 Fatty (change of) liver, not elsewhere classified
CPT/HCPCS: 36415; 80048; 80061; 80076; 82105; 82306; 82607; 82728; 82746; 83036; 83540; 84439; 84443; 85027; 86592; 86706; 86708; 86803; 87340; 87389